=== PATIENT | male | born 1955 | race Caucasian/White ===

== ENCOUNTER 2016-06-14 17:39 | Emergency (ER) | payer MEDICARE, OTHER ==
[2016-06-14 20:13] VITALS: BP 147/75; PULSE 90; RESP 18; TEMP 99.7
--- NOTE | 2016-06-14 20:34 | XR ---
EXAMINATION TYPE: XR chest 2V DATE OF EXAM: 06/14/2016 8:19 PM COMPARISON: 02/25/2016 HISTORY: Cough and congestion TECHNIQUE: Frontal and lateral views of the chest are obtained. FINDINGS: Heart and mediastinum are normal. There is slight coarsening of interstitial markings. The re are no hilar masses. There is no pleural effusion. There is a mild thoracic kyphosis with slight a nterior wedging of lower thoracic vertebra. IMPRESSION: Mild pulmonary fibrotic changes. No acute lung disease. No change compared to old exam.
--- NOTE | 2016-06-14 20:39 | ED ---
General Adult HPI - General Chief complaint: Upper Respiratory Infection Stated complaint: Cough for a week Time Seen by Provider: 06/14/16 19:16 Source: patient, RN notes reviewed Mode of arrival: ambulatory Limitations: no limitations - History of Present Illness Initial comments: This is a 60-year-old male presents with cough and congestion 7 days. Patient states he is coughing up phlegm and has had a runny nose. Patient denies any fever/chills or shortness of breath. Patient admits to being a smoker of 2 packs a day. Patient states he has been around many people with similar symptoms. Patient denies any recent chest pain, abdominal pain, nausea/vomiting/ diarrhea, back pain, numbness, tingling, hematuria, headache, or visual changes , or any other complaints. - Related Data Home Medications Medication Instructions Recorded Confirmed Aspirin EC [Ecotrin] 325 mg PO DAILY 01/19/14 06/14/16 Cyclobenzaprine [Flexeril] 10 mg PO TID 01/19/14 06/14/16 Furosemide [Lasix] 20 mg PO BID 01/19/14 06/14/16 Isosorbide Mononitrate [Imdur] 60 mg PO DAILY 01/19/14 06/14/16 LORazepam [Ativan] 1 mg PO BID PRN 01/19/14 06/14/16 Sulindac 200 mg PO BID 01/19/14 06/14/16 Theophylline 24 Hour [Darnell-24] 300 mg PO DAILY 01/19/14 06/14/16 glyBURIDE,MICRONIZED [Glynase] 2 tab PO BID 01/19/14 06/14/16 sitaGLIPtin [Januvia] 100 mg PO DAILY 01/19/14 06/14/16 Previous Rx's Medication Instructions Recorded Atorvastatin [Lipitor] 80 mg PO HS #30 tab 01/21/14 Clopidogrel [Plavix] 75 mg PO DAILY #30 tab 01/21/14 Lisinopril [Zestril] 5 mg PO DAILY #30 tab 01/21/14 Metoprolol Tartrate [Lopressor] 25 mg PO BID #60 tab 01/21/14 Nitroglycerin Sl Tabs [Nitrostat] 0.4 mg SUBLINGUAL Q5M PRN #25 tab 01/21/14 metFORMIN HCL [Glucophage] 500 mg PO BID #0 01/21/14 Azithromycin [Zithromax Z-pack] 250 mg PO DIRECTED #6 tab 06/14/16 Allergies Allergy/AdvReac Type Severity Reaction Status Date / Time No Known Allergies Allergy Verified 06/14/16 18:25 Review of Systems ROS Statement: Those systems with pertinent positive or pertinent negative responses have been documented in the HPI. ROS Other: All systems not noted in ROS Statement are negative. Past Medical History Past Medical History: Coronary Artery Disease (CAD), Chest Pain / Angina, Diabetes Mellitus, Hypertension, Myocardial Infarction ([place]) Last Myocardial Infarction Date:: 01/19/2014 History of Any Multi-Drug Resistant Organisms: None Reported Past Surgical History: Cholecystectomy, Heart Catheterization With Stent, Joint Replacement, Orthopedic Surgery Additional Past Surgical History / Comment(s): 2 STENTS TO CIRCUMFLEX Past Anesthesia/Blood Transfusion Reactions: No Reported Reaction Date of Last Stent Placement:: 01/19/2014 Past Psychological History: No Psychological Hx Reported Smoking Status: Current every day smoker Past Alcohol Use History: Occasional Past Drug Use History: None Reported General Exam - General Exam Comments Initial Comments: General: The patient is awake and alert, in no distress, and does not appear acutely ill. Eye: Pupils are equal, round and reactive to light, extra-ocular movements are intact. No nystagmus. There is normal conjunctiva bilaterally. No signs of icterus. Ears: TMs pearly with intact cone of light bilaterally. Normal external ear canals. Nose: Nasal turbinates erythematous and edematous with drainage present bilaterally. Mouth and throat: There are moist mucous membranes and no oral lesions. Neck: The neck is supple, there is no tenderness or JVD. Cardiovascular: There is a regular rate and rhythm. No murmur, rub or gallop is appreciated. Respiratory: Lungs are clear to auscultation, but distant, respirations are non -labored, breath sounds are equal. No wheezes, stridor, rales, or rhonchi. Musculoskeletal: Normal ROM, no tenderness. Strength 5/5. Sensation intact. Radial pulses equal bilaterally 2+. Neurological: A&O x 3. CN II-XII intact, There are no obvious motor or sensory deficits. Coordination appears grossly intact. Speech is normal. Skin: Skin is warm and dry and no rashes or lesions are noted. Psychiatric: Cooperative, appropriate mood & affect, normal judgment. Limitations: no limitations Course Vital Signs 06/14/16 06/14/16 18:22 20:10 Temperature 99.5 F 99.7 F H Pulse Rate 89 90 Respiratory 20 18 Rate Blood Pressure 123/70 147/75 O2 Sat by Pulse 97 96 Oximetry Medical Decision Making - Medical Decision Making Is a 60-year-old male presents with cough and congestion 7 days. On physical exam lungs are clear to auscultation bilaterally. No acute respiratory distress. Patient is afebrile in the EC today. A chest x-ray is done and reviewed showing:Mild pulmonary fibrotic changes. No acute lung disease. No change compared to old exam. Report read by Dr. Quiroz. Discussed results with patient. Discussed the patient will be put on a course of azithromycin for upper respiratory infection. I discussed return parameters.Discussed that patient should follow up with PCP in one to 2 days or return to the EC for any worsening symptoms or for any further concerns. Patient was receptive to this plan and patient will be discharged home. Disposition Clinical Impression: Upper respiratory infection, Productive cough Disposition: HOME SELF-CARE Condition: Good Instructions: Upper Respiratory Infection (ED) Additional Instructions: Please finish entire course of antibiotics. Please use Tylenol or Motrin as seen for any pain or fever symptoms.Please use medication as discussed. Please follow-up with family doctor in the next 2 days of symptoms have not improved. Please return to emergency room if the symptoms increase or worsen or for any other concerns. Prescriptions: Azithromycin [Zithromax Z-pack] 250 mg PO DIRECTED #6 tab Time of Disposition: 21:11
== END 2016-06-14 21:10 | disposition home or self-care (01) ==
LOC: EC 17:39
DX: J06.9 Acute upper respiratory infection, unspecified (principal); I25.10 Atherosclerotic heart disease of native coronary artery without angina pectoris; E11.9 Type 2 diabetes mellitus without complications; I25.2 Old myocardial infarction; I10 Essential (primary) hypertension; F17.200 Nicotine dependence, unspecified, uncomplicated; Z95.5 Presence of coronary angioplasty implant and graft; Z79.84 Long term (current) use of oral hypoglycemic drugs; Z79.02 Long term (current) use of antithrombotics/antiplatelets; Z79.82 Long term (current) use of aspirin; Z79.899 Other long term (current) drug therapy
CPT/HCPCS: 71020; 99283

== ENCOUNTER 2016-08-17 09:50 | Day surgery (SDC) | payer MEDICARE, OTHER ==
[2016-08-15 10:32] VITALS: BMI 26.6
[~2016-08-17 09:50] MED LIST: LACTATED RINGERS 1,000 ML IV SCH; LIDOCAINE 1% 20 ML VIAL (10MG/ML) FOR IV START INTRADERMA PRN
[2016-08-17 10:30] VITALS: RESP 16; TEMP 97.6
[2016-08-17 10:43] LABS: Glucose,Whole Blood 212 mg/dL (75-99)
[2016-08-17] MEDS ORDERED: PROPOFOL 10 MG/ML 20 ML VIAL IV ONE (11:06)
[2016-08-17] MEDS ORDERED: LIDOCAINE 1% INJ 10MG/ML (20 ML MDV) ONE (11:06)
--- NOTE | 2016-08-17 11:22 | P.GSHP ---
History of Present Illness H&P Date: 08/17/16 Chief Complaint: Screening colonoscopy This a 60-year-old male referred from Dr. Lester. Patient presents today for screening colonoscopy. He has never had a colonoscopy before. He denies any significant GI complaints. - Constitutional Constitutional: Reports as per HPI Past Medical History Past Medical History: Coronary Artery Disease (CAD), Chest Pain / Angina, COPD, Diabetes Mellitus, Hypertension, Myocardial Infarction ([place]) Additional Past Medical History / Comment(s): GENITAL WARTS Last Myocardial Infarction Date:: 01/19/2014 History of Any Multi-Drug Resistant Organisms: None Reported Past Surgical History: Cholecystectomy, Heart Catheterization With Stent, Joint Replacement, Orthopedic Surgery Additional Past Surgical History / Comment(s): 2 STENTS TO CIRCUMFLEX Past Anesthesia/Blood Transfusion Reactions: No Reported Reaction Date of Last Stent Placement:: 01/19/2014 Past Psychological History: No Psychological Hx Reported Smoking Status: Current every day smoker Past Alcohol Use History: Occasional Additional Past Alcohol Use History / Comment(s): SMOKES 1-2 PPD-SINCE AGE 17 Past Drug Use History: None Reported - Past Family History Mother Family Medical History: No Reported History Medications and Allergies Home Medications Medication Instructions Recorded Confirmed Type Aspirin EC [Ecotrin] 325 mg PO DAILY 01/19/14 08/17/16 History Cyclobenzaprine [Flexeril] 10 mg PO TID 01/19/14 08/17/16 History Furosemide [Lasix] 20 mg PO BID 01/19/14 08/17/16 History Isosorbide Mononitrate [Imdur] 60 mg PO DAILY 01/19/14 08/17/16 History LORazepam [Ativan] 1 mg PO BID PRN 01/19/14 08/17/16 History Sulindac 200 mg PO BID 01/19/14 08/17/16 History Theophylline 24 Hour [Darnell-24] 300 mg PO DAILY 01/19/14 08/17/16 History glyBURIDE,MICRONIZED [Glynase] 2 tab PO BID 01/19/14 08/17/16 History sitaGLIPtin [Januvia] 100 mg PO DAILY 01/19/14 08/17/16 History Allergies Allergy/AdvReac Type Severity Reaction Status Date / Time No Known Allergies Allergy Verified 08/17/16 10:24 Surgical - Exam Vital Signs Temp Pulse Resp BP Pulse Ox 97.6 F 89 16 161/102 98 08/17/16 10:27 08/17/16 10:27 08/17/16 10:27 08/17/16 10:27 08/17/16 10:27 - General well developed, no distress - Eyes PERRL - ENT normal pinna - Neck no masses - Respiratory normal expansion - Cardiovascular Rhythm: regular - Abdomen Abdomen: soft, non tender Results - Labs Abnormal Lab Results - Last 24 Hours (Table) 08/17/16 Range/Units 10:32 POC Glucose (mg/dL) 212 H (75-99) mg/dL Assessment and Plan Plan: We'll perform screening colonoscopy
--- NOTE | 2016-08-17 11:33 | P.OP ---
Date of Procedure: 08/17/16 Preoperative Diagnosis: Screening colonoscopy Postoperative Diagnosis: Poor colon prep Procedure(s) Performed: Colonoscopy Anesthesia: MAC Surgeon: Ton Rushing Pathology: none sent Condition: stable Disposition: PACU Description of Procedure: Patient's placed on the endoscopy table in the lateral position. He received IV sedation. Digital rectal exam was performed which revealed a large amount rectal stool. The flexible colonoscope was then placed patient anus and passed with colon. Scope could not be passed beyond the transverse colon secondary to a large amount of stool in the rectum. The stool was quite firm. Patient had a very poor prep. This point the withdrawn and the transverse colon descending colon and sigmoid colon and rectum appeared normal however this was a very limited view due to the poor colonic prep. The scope was withdrawn for patient. The patient will be need to be prepped for colonoscopy
[2016-08-17 12:05] VITALS: BP 138/88; PULSE 80
== END 2016-08-17 12:22 | disposition home or self-care (01) ==
LOC: ORWHC2ENDO 09:50
PROVIDERS: ATTEND Surgery
DX: Z12.11 Encounter for screening for malignant neoplasm of colon (principal); I25.119 Atherosclerotic heart disease of native coronary artery with unspecified angina pectoris; Z95.5 Presence of coronary angioplasty implant and graft; J44.9 Chronic obstructive pulmonary disease, unspecified; E11.9 Type 2 diabetes mellitus without complications; I10 Essential (primary) hypertension; E78.5 Hyperlipidemia, unspecified; I25.2 Old myocardial infarction; F17.200 Nicotine dependence, unspecified, uncomplicated; Z79.84 Long term (current) use of oral hypoglycemic drugs; Z79.82 Long term (current) use of aspirin; Z79.899 Other long term (current) drug therapy; Z79.1 Long term (current) use of non-steroidal anti-inflammatories (NSAID); Z79.02 Long term (current) use of antithrombotics/antiplatelets
CPT/HCPCS: J2001; J2704; G0121; 45378

== ENCOUNTER → 2016-08-22 | Outpatient (CLI) | payer MEDICARE, OTHER ==
[2016-08-22 10:26] LABS: Blood Urea Nitrogen 8 mg/dL (9-20); Non-African American GFR(MDRD) >60 (>60 ml/min/1.73 sqM)
--- NOTE | 2016-08-22 11:16 | CT ---
EXAMINATION TYPE: CT chest w con DATE OF EXAM: 08/22/2016 10:55 AM COMPARISON: 12/25/2015 HISTORY: Patient poor historian. Patient displays a cough. CT DLP: 497 mGycm Automated exposure control for dose reduction was used. CONTRAST: CT scan of the chest is performed with IV Contrast, patient injected with 100 mL of Omnipaque 300. FINDINGS: LUNGS: There is a diffuse micronodular appearance noted of both lungs. Larger nodules are seen within the left upper lobe measuring up to 6.5 mm. Right upper lobe nodules also noted measuring up to 6.6 mm. Mild scattered subpleural fibrosis with scattered groundglass opacity noted. MEDIASTINUM: Thoracic aorta is of normal caliber. The heart is not enlarged. Coronary artery calcific ation noted. No evidence for mediastinal mass. Subcarinal adenopathy measures 1.5 cm. HILAR STRUCTURES: Right hilar adenopathy measures up to 2 cm. Left hilar adenopathy measures 1.3 cm. UPPER ABDOMEN: Small sliding-type hiatal hernia. Osseous structures: Hypertrophic and degenerative change of the spine are seen with chronic appearing mild anterior wedge deformities in the lower thoracic spine. Pectus deformity of the sternum noted. Other: Subcentimeter right thyroid nodule noted. IMPRESSION: 1. Nonspecific diffuse micronodular appearance of both lungs with more discrete nodules noted as disc ussed above. There is some mild subpleural fibrosis. There is also hilar and adenopathy. Correlate fo r possible inflammatory or infectious process. Sarcoidosis is also within the differential. Findings are stable from previous.
== END | disposition home or self-care (01) ==
LOC: RADCTMAIN 09:51
PROVIDERS: ATTEND Internal Medicine Critical Care Medicine
DX: R91.8 Other nonspecific abnormal finding of lung field (principal); R59.0 Localized enlarged lymph nodes
CPT/HCPCS: 82565; 84520; 71260; 36415; Q9967

== ENCOUNTER → 2019-08-01 | Day surgery (SDC) | payer MEDICARE, OTHER ==
[2019-07-31 12:26] VITALS: BMI 25.1
[~2019-08-01] MED LIST changes: +LIDOCAINE 1% (10MG/ML) FOR IV START INTRADERMA PRN; -LIDOCAINE 1% 20 ML VIAL (10MG/ML) FOR IV START INTRADERMA PRN; +LIDOCAINE 1% INJ 10MG/ML (20 ML MDV) ONE; +PROPOFOL 10 MG/ML 20 ML VIAL IV ONE
[2019-08-01 07:22] VITALS: TEMP 97.6
[2019-08-01 07:38] LABS: Glucose,Whole Blood 207 mg/dL (75-99)
--- NOTE | 2019-08-01 08:02 | P.GSHP ---
History of Present Illness H&P Date: 08/01/19 Chief Complaint: Family history colonic Cancer This 63-year-old male who has a family history of colon cancer. Patient's brother was recently diagnosed with colon cancer. Patient denies any significant GI complaints. He's never had a previous screening colonoscopy. Past Medical History Past Medical History: Coronary Artery Disease (CAD), Chest Pain / Angina, COPD, Diabetes Mellitus, Hyperlipidemia, Hypertension, Myocardial Infarction ([place]), Osteoarthritis ([place]) Additional Past Medical History / Comment(s): GENITAL WARTS Last Myocardial Infarction Date:: 01/19/2014 History of Any Multi-Drug Resistant Organisms: None Reported Past Surgical History: Cholecystectomy, Heart Catheterization With Stent, Joint Replacement, Orthopedic Surgery Additional Past Surgical History / Comment(s): 2 STENTS TO CIRCUMFLEX, TOTAL LEFT HIP , LUNG SURGERY, RIGHT KNEE SURGERY, RIGHT HAND-FINGERS Past Anesthesia/Blood Transfusion Reactions: No Reported Reaction Date of Last Stent Placement:: 01/19/2014 Smoking Status: Current every day smoker - Past Family History Mother Family Medical History: No Reported History Brother(s) Family Medical History: Cancer Additional Family Medical History / Comment(s): COLON CANCER Medications and Allergies Home Medications Medication Instructions Recorded Confirmed Type Aspirin EC [Ecotrin] 325 mg PO DAILY 01/19/14 08/01/19 History Furosemide [Lasix] 20 mg PO BID 01/19/14 08/01/19 History Sulindac 200 mg PO BID PRN 01/19/14 08/01/19 History Theophylline 24 Hour [Darnell-24] 300 mg PO DAILY 01/19/14 08/01/19 History glyBURIDE,MICRONIZED [Glynase] 6 mg PO AC-BRKFST 01/19/14 08/01/19 History sitaGLIPtin [Januvia] 100 mg PO DAILY 01/19/14 08/01/19 History Nitroglycerin Sl Tabs [Nitrostat] 0.4 mg SUBLINGUAL Q5M PRN #25 tab 01/21/14 08/01/19 Rx metFORMIN HCL [Glucophage] 500 mg PO BID #0 01/21/14 08/01/19 Rx Atenolol [Tenormin] 25 mg PO DAILY 07/31/19 08/01/19 History Allergies Allergy/AdvReac Type Severity Reaction Status Date / Time No Known Allergies Allergy Verified 08/01/19 07:23 Surgical - Exam Vital Signs Temp Pulse Resp BP Pulse Ox 97.6 F 99 20 152/72 99 08/01/19 07:21 08/01/19 07:21 08/01/19 07:21 08/01/19 07:21 08/01/19 07:21 - General well developed, well nourished, no distress - Eyes PERRL - ENT normal pinna - Neck no masses - Respiratory normal expansion - Cardiovascular Rhythm: regular - Abdomen Abdomen: soft, non tender Results - Labs Abnormal Lab Results - Last 24 Hours (Table) 08/01/19 Range/Units 07:32 POC Glucose (mg/dL) 207 H (75-99) mg/dL Assessment and Plan Assessment: History of family colonic cancer. We'll perform colonoscopy.
[2019-08-01 08:24] VITALS: RESP 16
--- NOTE | 2019-08-01 08:27 | P.OP ---
Date of Procedure: 08/01/19 Preoperative Diagnosis: Screening colonoscopy History of family colon cancer Postoperative Diagnosis: Diverticulosis Poor colonic prep Procedure(s) Performed: Colonoscopy Anesthesia: MAC Surgeon: Ton Rushing Pathology: none sent Condition: stable Disposition: PACU Description of Procedure: The patient's placed on the endoscopy table lateral position. He received IV sedation. Digital rectal exam was performed which revealed a few external hemorrhoids. Flexible colonoscope was then placed patient anus and passed throughout the colon. The patient's colonic prep was very poor. The large amount stool in the colon. The scope could not be advanced past the midportion of the right colon due to the large amount of stool. This was withdrawn. There is a large amount of stool which limited the view of the mucosa. There was diverticular changes noted in the transverse descending and sigmoid colon. There are no masses or polyps seen however the view was quite limited due to the large amount stool. Scope was brought back the rectum and this appeared normal. Scope withdrawn for patient.
[2019-08-01 08:32] LABS: Glucose,Whole Blood 190 mg/dL (75-99)
[2019-08-01 08:38] VITALS: BP 114/67; PULSE 61
== END ==
LOC: ORWHC2ENDO 07:07
PROVIDERS: ATTEND Surgery
DX: Z12.11 Encounter for screening for malignant neoplasm of colon (principal); K57.30 Diverticulosis of large intestine without perforation or abscess without bleeding; K64.4 Residual hemorrhoidal skin tags; Z80.0 Family history of malignant neoplasm of digestive organs; I25.2 Old myocardial infarction; I25.10 Atherosclerotic heart disease of native coronary artery without angina pectoris; I10 Essential (primary) hypertension; E78.5 Hyperlipidemia, unspecified; J44.9 Chronic obstructive pulmonary disease, unspecified; E11.9 Type 2 diabetes mellitus without complications; M19.90 Unspecified osteoarthritis, unspecified site; F17.200 Nicotine dependence, unspecified, uncomplicated; Z79.82 Long term (current) use of aspirin; Z79.84 Long term (current) use of oral hypoglycemic drugs; Z79.899 Other long term (current) drug therapy; Z90.49 Acquired absence of other specified parts of digestive tract; Z95.5 Presence of coronary angioplasty implant and graft; Z96.642 Presence of left artificial hip joint
CPT/HCPCS: G0105; J2001; J2704; 45330

== ENCOUNTER → 2019-12-31 | Outpatient (CLI) | payer MEDICARE, OTHER ==
[~2019-12-31] MED LIST changes: -LACTATED RINGERS 1,000 ML IV SCH; -LIDOCAINE 1% (10MG/ML) FOR IV START INTRADERMA PRN; -LIDOCAINE 1% INJ 10MG/ML (20 ML MDV) ONE; -PROPOFOL 10 MG/ML 20 ML VIAL IV ONE; +REGADENOSON 0.4 MG/5 ML SYRINGE IV ONE
--- NOTE | 2019-12-31 12:39 | NM ---
EXAMINATION TYPE: NM stress lexiscan cardiolite DATE OF EXAM: 12/31/2019 COMPARISON: NONE HISTORY: Precordial chest pain and abnormal EKG TECHNIQUE: After the intravenous administration of 9.8 mCi Tc 99m Sestamibi - Cardiolite resting SPE CT images acquired 45 minutes post injection. The patient received 0.4mg Lexiscan, 25 mCi Tc 99m Sestamibi - Stress images obtained 40 minutes post injection FINDINGS: Review of stress and rest SPECT images demonstrates there is decreased perfusion on the stress images involving the cardiac apex compatible with stress-induced ischemia. Gated analysis shows normal wall motion with an estimated left ventricular ejection fraction of 53 %. IMPRESSION: Stress-induced ischemia as noted.
--- NOTE | 2019-12-31 14:30 | EST ---
EXERCISE STRESS AGE: 64 SEX: M HT: 5'9" WT: 170 lbs. PROTOCOL: Lexiscan Cardiolite. STAGE: DURATION OF EXERCISE: HEART RATE REST: 66 BLOOD PRESSURE REST: 127/75 MAXIMUM HEART RATE ACHIEVED: 76 MAXIMUM BLOOD PRESSURE: 128/77 85% MPHR: 100% MPHR: METS: INDICATIONS: CLINICAL INFORMATION: Baseline EKG revealed normal sinus rhythm without significant ST-T changes. With Lexiscan imaging, heart rate changed from 66-72 beats per minute, blood pressure changed from 128/77 to 127/75. Patient was asymptomatic. EKG was unremarkable. By EKG criteria, this is an unremarkable Lexiscan stress test. The nuclear scan results which are more pertinent will be reported by the radiologist. MMODL / IJN: [id number] /
== END | disposition home or self-care (01) ==
LOC: RADNMMAIN 09:36
PROVIDERS: ATTEND Family Medicine
DX: I25.89 Other forms of chronic ischemic heart disease (principal)
CPT/HCPCS: 93017; 78452; A9500; J2785

== ENCOUNTER 2020-01-06 09:11 | Inpatient (IN) | payer MEDICARE, OTHER ==
[2020-01-06 12:07] LABS: Glucose,Whole Blood 158 mg/dL (75-99)
[2020-01-06 12:17] LABS: Basophils % (A) 0 %; Eosinophils # (A) 0.4 k/uL (0-0.7); Eosinophils % (A) 6 %; HCT 44.2 % (39.0-53.0); HGB 14.7 gm/dL (13.0-17.5); Lymphocytes # (A) 1.9 k/uL (1.0-4.8); Lymphocytes % (A) 26 %; MCH 29.2 pg (25.0-35.0); MCHC 33.3 g/dL (31.0-37.0); MCV 87.5 fL (80.0-100.0); Monocytes # (A) 0.5 k/uL (0-1.0); Monocytes % (A) 6 %; Neutrophils # (A) 4.3 k/uL (1.3-7.7); Neutrophils % (A) 59 %; Platelet Count 171 k/uL (150-450); RBC 5.06 m/uL (4.30-5.90); RDW 12.7 % (11.5-15.5); WBC 7.3 k/uL (3.8-10.6)
[2020-01-06 12:27] LABS: African American GFR (CKD) >90 (>60 ml/min/1.73 sqM); Anion Gap 6 mmol/L; Blood Urea Nitrogen 10 mg/dL (9-20); Calcium 9.2 mg/dL (8.4-10.2); Carbon Dioxide 28 mmol/L (22-30); Chloride 103 mmol/L (98-107); Cholesterol 174 mg/dL (<200); Glucose 161 mg/dL (74-99); HDL Cholesterol 49 mg/dL (40-60); LDL Cholesterol,Calculated 110 mg/dL (0-99); Magnesium 1.9 mg/dL (1.6-2.3); Non-African American GFR(CKD) >90 (>60 ml/min/1.73 sqM); Potassium 4.3 mmol/L (3.5-5.1); Sodium 137 mmol/L (137-145); Triglycerides 75 mg/dL (<150)
[2020-01-06] MEDS ORDERED: NITROGLYCERIN SL TABS 0.4 MG TAB SUBLINGUAL PRN (12:35)
[2020-01-06] MEDS ORDERED: ALPRAZolam 0.25 MG TAB PO PRN (12:35)
[2020-01-06] MEDS ORDERED: SODIUM CHLORIDE 0.9% 1,000 ML in EMPTY BAG 1 BAG IV ONE (12:35)
[2020-01-06] MEDS ORDERED: ALPRAZolam 0.5 MG TAB PO PRN (12:35)
[2020-01-06] MEDS ORDERED: HEPARIN SODIUM,PORCINE 5,000 UNIT/ML 1 ML VIAL IV ONE (12:44)
[2020-01-06] MEDS ORDERED: HEPARIN SOD,PORK IN 0.45% NACL 25,000 UNIT in 0.45% NACL 1 250ML.BAG IV SCH (12:45)
[2020-01-06] MEDS: ASPIRIN 81 MG PO SCH (12:58)
[2020-01-06] MEDS: METOPROLOL SUCCINATE (ER) 50 MG TAB.ER.24H PO SCH (12:58)
[2020-01-06] MEDS: ATORVASTATIN 80 MG TAB PO SCH (12:58)
[2020-01-06] MEDS: FUROSEMIDE 20 MG TAB PO SCH ×2 (12:58→21:59)
[2020-01-06] MEDS ORDERED: HYDROcodone/APAP 10-325MG 1 EACH TAB PO PRN (13:07)
--- NOTE | 2020-01-06 13:13 | P.CRDCN ---
History of Present Illness History of present illness: HISTORY OF PRESENTING ILLNESS This is a pleasant 64-year-old male past medical history significant for coronary artery disease status post PCI of the proximal and midcircumflex with chronic total occlusion of the RCA and first diagonal branch as well as moderate disease in the proximal LAD with calcified right and left coronary systems, hypertension, dyslipidemia, diabetes mellitus and chronic nicotine dependence. 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 His prior re vascularization was in 2013. That was done by Dr. Dr. Fortune. We have been asked to see in consultation for chest pain and abnormal stress test performed as an outpatient. He states for the previous 2 months he has been experiencing exertional chest discomfort and taking sublingual nitroglycerin regularly. His chest discomfort is described as a tight sensation in the midsternal region with radiation to the left precordial region associated with shortness of breath. He denies dizziness, palpitations, nausea, vomiting, diaphoresis or syncope. Laboratory data reviewed, CBC unremarkable, sodium 137, potassium 4.3, creatinine 0.66, cardiac enzymes negative 1, LDL 110 and HDL 49. Current daily cardiac medications include Toprol 50 mg daily, atenolol 25 mg daily, aspirin 81 mg daily, Lasix 20 mg twice a day and atorvastatin 80 mg daily. REVIEW OF SYSTEMS At the time of my exam: CONSTITUTIONAL: Denies fever or chills. CARDIOVASCULAR: Denies chest pain, shortness of breath, orthopnea, PND or palpitations. RESPIRATORY: Denies cough. GASTROINTESTINAL: Denies abdominal pain, diarrhea, constipation, nausea or vomiting. MUSCULOSKELETAL: Denies myalgias. NEUROLOGIC: Denies numbness, tingling or weakness. ENDOCRINE: Denies fatigue, weight change, polydipsia or polyurina. GENITOURINARY: Denies burning, hematuria or urgency with micturation. HEMATOLOGIC: Denies history of anemia or bleeding. PHYSICAL EXAMINATION Blood pressure 149/81 heart rate 69 afebrile and maintaining oxygen saturation on room air. CONSTITUTIONAL: No apparent distress. HEENT: Head is normocephalic. Pupils are equal, round. Sclerae anicteric. Mucous membranes of the mouth are moist. No JVD. Bilateral carotid bruit. CHEST EXAMINATION: Lungs are clear to auscultation. No chest wall tenderness is noted on palpation or with deep breathing. HEART EXAMINATION: Regular rate and rhythm. S1, S2 heard. Systolic ejection murmur at the left sternal border and apex, no gallops or rub. ABDOMEN: Soft, nontender. Positive bowel sounds. EXTREMITIES: 2+ peripheral pulses, no lower extremity edema and no calf tend erness. NEUROLOGIC EXAMINATION: Patient is awake, alert and oriented x3. ASSESSMENT Unstable angina Coronary artery disease status post prior revascularization Hypertension Dyslipidemia COPD Diabetes mellitus Chronic nicotine dependence PLAN Obtain baseline EKG. Obtain 2-D echocardiogram and Doppler study to assess cardiac structure and function. Chest x-ray is pending. Initiate heparin infusion. Recommend proceeding with left heart catheterization tomorrow with Dr. Fortune. I have discussed the risks, benefits and alternative therapies for the above- mentioned procedure and for both sedation/analgesia as well as necessary blood product administration, if indicated, as they pertain to this patient. The patient has indicated understanding and acceptance of the risks and procedures discussed. Questions have been answered appropriately and he is agreeable to move forward with the above-stated procedure. His medication regimen appears to be atenolol and Toprol. We will discontinue the atenolol and continue the Toprol 50 mg daily. Continue Lasix, atorvastatin and aspirin as previously ordered. Smoking cessation recommended. Further recommendations to follow based upon clinical course. Thank you kindly for this consultation. Nurse Practitioner note has been reviewed, I agree with a documented findings and plan of care. Patient was seen and examined. Past Medical History Past Medical History: Coronary Artery Disease (CAD), Chest Pain / Angina, COPD, Diabetes Mellitus, Hyperlipidemia, Hypertension, Myocardial Infarction ([place]), Osteoarthritis (OA) Additional Past Medical History / Comment(s): GENITAL WARTS Last Myocardial Infarction Date:: 01/19/2014 History of Any Multi-Drug Resistant Organisms: None Reported Past Surgical History: Cholecystectomy, Heart Catheterization With Stent, Joint Replacement, Orthopedic Surgery Additional Past Surgical History / Comment(s): 2 STENTS TO CIRCUMFLEX, TOTAL LEFT HIP , LUNG SURGERY, RIGHT KNEE SURGERY, RIGHT HAND-FINGERS Past Anesthesia/Blood Transfusion Reactions: No Reported Reaction Date of Last Stent Placement:: 01/19/2014 Past Psychological History: No Psychological Hx Reported Smoking Status: Current every day smoker Past Alcohol Use History: Rare Additional Past Alcohol Use History / Comment(s): STARTED AT AGE 17 SMOKES 1-2 PPD Past Drug Use History: None Reported - Past Family History Mother Family Medical History: No Reported History Brother(s) Family Medical History: Cancer Additional Family Medical History / Comment(s): COLON CANCER Medications and Allergies Home Medications Medication Instructions Recorded Confirmed Type Furosemide [Lasix] 20 mg PO BID 01/19/14 01/06/20 History Theophylline 24 Hour [Darnell-24] 300 mg PO BID 01/19/14 01/06/20 History glyBURIDE,MICRONIZED [Glynase] 6 mg PO BID 01/19/14 01/06/20 History sitaGLIPtin [Januvia] 100 mg PO DAILY 01/19/14 01/06/20 History Nitroglycerin Sl Tabs [Nitrostat] 0.4 mg SUBLINGUAL Q5M PRN #25 tab 01/21/14 01/06/20 Rx atenoloL [Tenormin] 25 mg PO DAILY 07/31/19 01/06/20 History Aspirin EC [Ecotrin Low Dose] 81 mg PO DAILY 01/06/20 01/06/20 History Atorvastatin Calcium [Lipitor] 80 mg PO DAILY 01/06/20 01/06/20 History Famotidine [Pepcid] 20 mg PO DAILY 01/06/20 01/06/20 History HYDROcodone/APAP 10-325MG [[place] 1 tab PO TID 01/06/20 01/06/20 History 10-325] LORazepam [Ativan] 1 mg PO BID 01/06/20 01/06/20 History Metoprolol Succinate [Toprol XL] 50 mg PO DAILY 01/06/20 01/06/20 History metFORMIN HCL [Glucophage] 1,000 mg PO BID 01/06/20 01/06/20 History Allergies Allergy/AdvReac Type Severity Reaction Status Date / Time No Known Allergies Allergy Verified 01/06/20 10:26 Physical Exam Vitals: Vital Signs Temp Pulse Resp BP BP Pulse Ox 01/06/20 11:30 97.6 F 69 20 149/81 99 01/06/20 10:12 98.1 F 16 158/78 Intake and Output 01/05/20 01/06/20 01/06/20 22:59 06:59 14:59 Other: Weight 72.5 kg Results 01/06/20 11:58 01/06/20 11:58 Lipids 01/06/20 Range/Units 11:58 Triglycerides 75 (<150) mg/dL Cholesterol 174 (<200) mg/dL HDL Cholesterol 49 (40-60) mg/dL CBC 01/06/20 Range/Units 11:58 WBC 7.3 (3.8-10.6) k/uL RBC 5.06 (4.30-5.90) m/uL Hgb 14.7 (13.0-17.5) gm/dL Hct 44.2 (39.0-53.0) % Plt Count 171 (150-450) k/uL Comprehensive Metabolic Panel 01/06/20 Range/Units 11:58 Sodium 137 (137-145) mmol/L Potassium 4.3 (3.5-5.1) mmol/L Chloride 103 (98-107) mmol/L Carbon Dioxide 28 (22-30) mmol/L BUN 10 (9-20) mg/dL Creatinine 0.66 (0.66-1.25) mg/dL Glucose 161 H (74-99) mg/dL Calcium 9.2 (8.4-10.2) mg/dL Current Medications Generic Name Dose Route Start Last Admin Trade Name Freq PRN Reason Stop Dose Admin Alprazolam 0.25 mg 01/06/20 12:35 Xanax PO Q6HR PRN Mild Anxiety Alprazolam 0.5 mg 01/06/20 12:35 Xanax PO Q6HR PRN Moderate Anxiety Aspirin 325 mg 01/07/20 06:00 Aspirin PO 01/07/20 06:01 ONCE ONE Atorvastatin Calcium 80 mg 01/06/20 12:45 Lipitor PO DAILY CLARITA Furosemide 20 mg 01/06/20 12:45 Lasix PO BID CLARITA Sodium Chloride 1,000 ml/ IV 1,000 mls @ 72.5 mls/hr 01/06/20 12:35 Solution IV 01/07/20 02:22 .[id number] ONE 1 ML/KG/HR Methylprednisolone Sodium Succinate 40 mg 01/06/20 16:00 Solu-Medrol IV Q8HR CLARITA Metoprolol Succinate 50 mg 01/06/20 12:45 Toprol Xl PO DAILY CLARITA Nitroglycerin 0.4 mg 01/06/20 12:35 Nitrostat SUBLINGUAL Q5M PRN Chest Pain Non-Formulary Medication 81 mg 01/06/20 12:45 Aspirin Ec PO DAILY CLARITA Intake and Output 01/05/20 01/06/20 01/06/20 22:59 06:59 14:59 Other: Weight 72.5 kg Patient Weight 01/07/20 06:59 Weight 72.5 kg 01/06/20 11:58 01/06/20 11:58
[2020-01-06 13:45] LABS: ALT 7 U/L (4-49); AST 17 U/L (17-59); Albumin 4.2 g/dL (3.5-5.0); Alkaline Phosphatase 77 U/L (38-126); Total Bilirubin 0.6 mg/dL (0.2-1.3)
--- NOTE | 2020-01-06 13:56 | HP ---
HISTORY AND PHYSICAL A 64-year-old white male who had an abnormal stress test last week that showed ischemia in the apex, was admitted for unstable angina. He takes 5 nitroglycerin pills a day. He has a history of COPD and he has a history of 6 stents in the past over 5 years ago. No stress test since then. He has long-standing history of smoking, COPD, and maybe he has some noncompliance for followup issues. He mentioned he gets chest pain with any exertion around the yard, taking nitroglycerin 5 pulse a day. He continues smoke. His breathing has gotten worse, short of breath is worse over the last few days. We are going to be him in for COPD exacerbation, unstable angina with a heart catheterization due to abnormal stress test. Generally on methyl, Solu-Medrol 40 mg IV q.8, metoprolol 50 daily, nitroglycerin sublingual, Lipitor 80 daily, aspirin 325 daily, alprazolam 0.5 p.r.n. for anxiety. 14 POINT REVIEW OF SYSTEMS: As mentioned above. PHYSICAL EXAM: Temperature 97, 98, blood pressure is 140s to 150s/70s to 80s, O2 is 99% on room air. Cardiovascular S1, S2. Lungs scattered wheeze x4, generally looks dark complected, ashen-nicole face. Cardiovascular S1-S2, Lungs scattered wheeze, GI soft, nontender. Hematology negative Homans. Psych fair mood and affect. Neurologic, anxious. ASSESSMENT: Unstable angina. Abnormal stress test. COPD, nicotine addiction, dyslipidemia, hypertension. Please see further orders. Needs a heart catheterization. Start him on IV Solu- Medrol. Check chest x-ray, troponins, etc. MMODL / IJN: [id number] /
--- NOTE | 2020-01-06 14:18 | XR ---
EXAMINATION TYPE: XR chest 2V DATE OF EXAM: 01/06/2020 COMPARISON: CT chest August 22, 2016. Two-view chest x-ray June 14, 2016. HISTORY: COPD. TECHNIQUE: Frontal and lateral views of the chest are obtained. FINDINGS: Slightly elevated left hemidiaphragm redemonstrated. Increasing reticular markings bilatera lly are present. There is no new suspicious focal air space opacity, pleural effusion, or pneumothora x seen. The cardiac silhouette size is stable and within normal limits with atherosclerotic change i n the aortic knob. The osseous structures are somewhat demineralized. Mild chronic type compression fracture deformities redemonstrated mid to lower thoracic spine. IMPRESSION: Chronic interstitial changes. Cannot exclude new mild bilateral central interstitial terrence ma. No new focal infiltrate.
[2020-01-06] MEDS ORDERED: HYDROcodone/APAP 10-325MG 1 EACH TAB PO SCH (16:00)
[2020-01-06 16:33] LABS: Glucose,Whole Blood 203 mg/dL (75-99)
[2020-01-06] MEDS: INSULIN ASPART (NovoLOG) 100 UNIT/ML VIAL SQ SCH ×2 (16:54→21:59)
[2020-01-06] MEDS: methylPREDNISolone SOD SUCCI 40 MG/ML 1 ML VIAL IV SCH ×2 (16:54→23:16)
--- NOTE | 2020-01-06 18:00 | ECHOF ---
Referral Reason: MEASUREMENTS -------- HEIGHT: 175.3 cm WEIGHT: 72.1 kg BP: 158/78 RVIDd: 3.9 cm (< 3.3) IVSd: 1.8 cm (0.6 - 1.1) LVIDd: 3.9 cm (3.9 - 5.3) LVPWd: 1.6 cm (0.6 - 1.1) IVSs: 2.2 cm LVIDs: 2.2 cm LVPWs: 2.2 cm LAESV Index (A-L): 52.80 ml/m Ao Diam: 3.6 cm (2.0 - 3.7) AV Cusp: 1.1 cm (1.5 - 2.6) MV E Simón: 1.75 m/s MV DecT: 399 ms MV A Simón: 1.52 m/s MV E/A Ratio: 1.15 AV maxP.20 mmHg AV meanP.93 mmHg RAP: 5.00 mmHg RVSP: 26.84 mmHg FINDINGS -------- Sinus rhythm. This was a technically adequate study. The left ventricular size is normal. There is moderate concentric left ventricular hypertrophy. O verall left ventricular systolic function is normal with, an EF between 55 - 60 %. Left ventricular fillimg pressure cannot be estimated due to severe mitral annular calcification. The right ventricle is mild to moderately enlarged. LA is severely dilated >40 ml/m2 The right atrial size is normal. Interatrial and interventricular septum intact. There is no evidence of aortic regurgitation. There is mild aortic stenosis present. Peak/mean gr adient across the Aortic Valve is 32.20mmHg / 16.93mmHg. Severe mitral annular calcification present. Mild mitral regurgitation is present. Moderate milagros l stenosis , with a MVA of 1.9cm (by PHT) Mild tricuspid regurgitation present. There is no evidence of pulmonary hypertension. The right v entricular systolic pressure, as measured by Doppler, is 26.84mmHg. There is no pulmonic regurgitation present. The aortic root size is normal. Normal inferior vena cava with normal inspiratory collapse consistent with estimated right atrial pre ssure of 5 mmHg. There is no pericardial effusion. CONCLUSIONS -------- 1. The left ventricular size is normal. 2. There is moderate concentric left ventricular hypertrophy. 3. Overall left ventricular systolic function is normal with, an EF between 55 - 60 %. 4. Left ventricular fillimg pressure cannot be estimated due to severe mitral annular calcification. 5. The right ventricle is mild to moderately enlarged. 6. LA is severely dilated >40 ml/m2 7. There is mild aortic stenosis present. 8. Peak/mean gradient across the Aortic Valve is 32.20mmHg / 16.93mmHg. 9. Severe mitral annular calcification present. 10. Moderate mitral stenosis. 11. , with a MVA of 1.9cm (by PHT) 12. Mild tricuspid regurgitation present. TON CYLINDER INSPECTOR: Noa Banegas RDCS
[2020-01-06] MEDS: HEPARIN SODIUM,PORCINE 5,000 UNIT/ML 1 ML VIAL IV PRN (19:08)
[2020-01-06 21:01] LABS: Hemoglobin A1C 6.2 % (4.0-6.0)
[2020-01-06 21:02] LABS: Glucose,Whole Blood 216 mg/dL (75-99)
[2020-01-07] MEDS: HEPARIN SODIUM,PORCINE 5,000 UNIT/ML 1 ML VIAL IV PRN (01:54)
[2020-01-07 05:58] LABS: Glucose,Whole Blood 219 mg/dL (75-99)
[2020-01-07] MEDS: FAMOTIDINE 20 MG TAB PO SCH (06:00)
[2020-01-07] MEDS ORDERED: ASPIRIN 325 MG TAB PO ONE (06:00)
[2020-01-07] MEDS: METOPROLOL SUCCINATE (ER) 50 MG TAB.ER.24H PO SCH (06:01)
[2020-01-07] MEDS: ATORVASTATIN 80 MG TAB PO SCH (06:01)
[2020-01-07] MEDS: methylPREDNISolone SOD SUCCI 40 MG/ML 1 ML VIAL IV SCH ×3 (06:04→23:34)
[2020-01-07] MEDS: INSULIN ASPART (NovoLOG) 100 UNIT/ML VIAL SQ SCH ×4 (06:05→20:21)
[2020-01-07 06:33] LABS: Basophils % (A) 0 %; Eosinophils % (A) 0 %; HCT 45.3 % (39.0-53.0); HGB 15.2 gm/dL (13.0-17.5); Lymphocytes # (A) 1.1 k/uL (1.0-4.8); Lymphocytes % (A) 12 %; MCH 29.6 pg (25.0-35.0); MCHC 33.5 g/dL (31.0-37.0); MCV 88.4 fL (80.0-100.0); Mean Platelet Volume 8.4; Monocytes # (A) 0.2 k/uL (0-1.0); Monocytes % (A) 2 %; Neutrophils # (A) 7.9 k/uL (1.3-7.7); Neutrophils % (A) 85 %; Platelet Count 177 k/uL (150-450); RBC 5.13 m/uL (4.30-5.90); RDW 12.7 % (11.5-15.5); WBC 9.3 k/uL (3.8-10.6)
[2020-01-07] MEDS ORDERED: LIDOCAINE 1% INJ 10MG/ML (20 ML MDV) ONE (12:12)
[2020-01-07] MEDS ORDERED: VERAPAMIL 2.5 MG/ML 2 ML AMP ONE (12:12)
[2020-01-07] MEDS ORDERED: fentaNYL (PF) 50 MCG/ML 2 ML AMP ONE (12:13)
[2020-01-07] MEDS ORDERED: fentaNYL (PF) 50 MCG/ML 2 ML AMP IVP ONE (12:15)
[2020-01-07] MEDS ORDERED: LIDOCAINE 1% INJ 10MG/ML (20 ML MDV) SQ ONE (12:17)
[2020-01-07] MEDS ORDERED: VERAPAMIL SYRINGE (5 MG/10 ML) INTRAARTER ONE (12:20)
[2020-01-07] MEDS ORDERED: IV FLUID CONTINUATION 1,000 ML IV ONE (12:21)
[2020-01-07] MEDS ORDERED: HEPARIN SODIUM 1,000 UN/ML (10ML VL) ONE (12:28)
[2020-01-07] MEDS ORDERED: HEPARIN SODIUM 1,000 UN/ML (10ML VL) IV ONE (12:29)
[2020-01-07] MEDS ORDERED: IOPAMIDOL-370 100ML BTL INJ ONE (12:37)
[2020-01-07] MEDS ORDERED: IOPAMIDOL-300 50ML BTL INJ ONE (12:37)
[2020-01-07] MEDS ORDERED: RX INFO: IV CONTRAST WAS GIVEN 1 EACH MISC MISCELLANE PRN (12:54)
[2020-01-07] MEDS ORDERED: SODIUM CHLORIDE 0.9% 1,000 ML IV SCH (13:00)
[2020-01-07] MEDS: ASPIRIN 81 MG PO SCH (15:56)
[2020-01-07] MEDS ORDERED: MD COMMUNICATION TO PHARMACY 1 EACH MISC PO ONE (16:08)
[2020-01-07] MEDS: ISOSORBIDE MONONITRATE ER 30 MG TAB.ER.24H PO SCH (16:09)
[2020-01-07] MEDS: EZETIMIBE 10 MG TAB PO SCH (16:09)
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
[2020-01-07 17:23] LABS: Glucose,Whole Blood 372 mg/dL (75-99)
--- NOTE | 2020-01-07 18:40 | CC ---
CARDIAC CATHETERIZATION REPORT Mr. Liu is a 64-year-old male with known history of chronic tobacco use, history of hypertension, hyperlipidemia, diabetes mellitus and history of coronary artery disease who presented with symptoms of exertional chest discomfort and positive myocardial perfusion imaging. He was evaluated by Dr. Pandey. Recommendation was made regarding cardiac catheterization. The procedure, its risks and complications were discussed with the patient, who was in full understanding and agreement. PROCEDURE DESCRIPTION: Patient was brought to record label internship in a fasting, semi-sedated state after receiving fentanyl and Benadryl and achieving a moderate conscious sedated state. Using Xylocaine anesthesia and Seldinger technique, a 6-Indonesian sheath was introduced in the right radial artery. Selective right and left coronary angiography was performed using 5-Indonesian 3-1/2 bend right and left Katherine catheters. Multiple views were taken of the coronary arteries, including hemiaxial views. Following that, a 5-Indonesian tight pigtail catheter was introduced in the left ventricle and a 30-degree TOLEDO view of the left ventricle was obtained. Following that, catheter and sheath were removed. Hemostasis was obtained with deployment of a TR band. There was no immediate complication. Patient was returned to his room in stable condition. Of note, the patient received a total of 4000 units of intravenous heparin as well as intra-arterial verapamil. FINDINGS: FLUOROSCOPY: There was severe calcification involving all the coronary arteries. LEFT MAIN: This is a large-sized vessel trifurcating into left circumflex, ramus intermedius and left anterior descending coronary artery. Left main coronary artery has no evidence of high-grade stenosis. LEFT ANTERIOR DESCENDING ARTERY: This is a large-sized vessel reaching toward the apex with a wrap around the apex segment, heavily calcified. The left anterior descending artery at the takeoff of the first diagonal branch has a 99% stenosis. There is a proximal diagonal branch that is totally occluded. The second diagonal branch has diffuse intimal disease with an area of stenosis up to 80%. The distal LAD artery has an 80% to 90% stenosis. RAMUS INTERMEDIUS: This is a large-sized vessel reaching toward the apicolateral wall. The ramus intermedius has a 90% stenosis in the mid segment. The stented segments in the left circumflex are patent. The first obtuse marginal branch is totally occluded with no significant antegrade flow. Distally the vessel has no evidence of high- grade stenosis. RIGHT CORONARY ARTERY: This vessel is totally occluded proximally with no significant antegrade flow. COLLATERALS: There is collateral from the left coronary system toward the right PDA and PLV. LEFT VENTRICULOGRAM: Left ventriculogram was performed in 30-degree TOLEDO view and revealed normal left ventricular size and systolic function. There was mitral anulus calcification and 1+ mitral regurgitation. HEMODYNAMICS: There was no gradient across the aortic valve. The left ventricular end- diastolic pressure was 12-16 mmHg. CONCLUSION: 1. Heavily calcified coronary arteries. 2. Severe triple-vessel coronary artery disease with chronically occluded right coronary artery and occluded first diagonal branch. 3. Severe disease in the proximal LAD and ramus intermedius with occluded obtuse marginal branch. 4. Preserved left ventricular size and systolic function. RECOMMENDATIONS: In view of findings and anatomy and the history of diabetes, I have recommended that he undergo evaluation for coronary artery bypass grafting. Otherwise, he will require multivessel coronary angioplasty and stenting. Those findings and recommendation were discussed with the patient, and he is in full understanding and agreement. Duration of procedure was 25 minutes. KAT / SHERYLN: [id number] / NILE
--- NOTE | 2020-01-07 20:13 | US ---
EXAMINATION TYPE: US carotid duplex BILAT DATE OF EXAM: 01/07/2020 COMPARISON: NONE CLINICAL HISTORY: Pre-Op Cardiac Surgery. pre open heart, no h/o stroke, smoker EXAM MEASUREMENTS: RIGHT: Peak Systolic Velocity (PSV) cm/sec ----- Right CCA: 138 ----- Right ICA: 143 ----- Right ECA: 165 ICA/CCA ratio: 1.0 RIGHT: End Diastole cm/sec ----- Right CCA: 24.5 ----- Right ICA: 18.1 ----- Right ECA: 8.5 LEFT: Peak Systolic Velocity (PSV) cm/sec ----- Left CCA: 134 ----- Left ICA: 122 ----- Left ECA: 152 ICA/CCA ratio: 0.9 LEFT: End Diastole cm/sec ----- Left CCA: 29.2 ----- Left ICA: 25.5 ----- Left ECA: 19.8 VERTEBRALS (direction of flow): Right Vertebral: Antegrade Left Vertebral: Antegrade Rhythm: Normal Heterogeneous plaque bilaterally with no significant stenosis seen IMPRESSION: There is antegrade flow in the vertebral arteries. The images and measurements suggest less than 20% stenosis in the right internal carotid artery and 40% stenosis in the left internal carotid artery. Criteria for Assigning % of Stenosis / Diameter reduction (Estimation based on the indirect measurements of the internal carotid artery velocities (ICA PSV). 1. Normal (no stenosis)=ICA PSV < 125 cm/s: ratio < 2.0: ICA EDV<40 cm/s. 2. Less than 50% stenosis=ICA PSV < 125 cm/s: ratio < 2.0: ICA EDV<40 cm/s. 3. 50 to 69% stenosis=ICA PSV of 125 to 230 cm/s: ration 2.0 ? 4.0: ICA EDV 40-100 cm/s. 4. Greater than 70% stenosis to near occlusion= ICA PSV > 230 cm/s: ratio > 4.0: ICA EDV > 100 cm/s. 5. Near occlusion= ICA PSV velocities may be low or undetectable: variable ratio and ICA EDV. 6. Total occlusion=unable to detect flow.
[2020-01-07 20:16] LABS: Glucose,Whole Blood 206 mg/dL (75-99)
[2020-01-07] MEDS: lisinopriL 5 MG TAB PO SCH (20:21)
--- NOTE | 2020-01-07 22:30 | PN ---
PROGRESS NOTE This patient is a 64-year-old white male who came in with unstable angina. He was sent to the cardiac label designer today. Findings were severe calcification involving all coronary arteries. Left anterior descending, first diagonal branch 99% stenosis, proximal diagonal branch totally occluded, second diagonal branch 80%, right coronary artery totally occluded with some collaterals. Severe triple-vessel coronary artery disease, chronically occluded right coronary artery and occluded first diagonal branch, severe disease in proximal LAD and ramus. ASSESSMENT: Coronary artery bypass grafting surgery will be needed. Wait for cardiac surgeon's recommendations for surgery. Maximum medical therapy will be given in the meantime. Carotid only shows blockages 40% to 60% as far as carotid artery blockages. Wait for surgical intervention. MMODL / IJN: [id number] /
[2020-01-07 22:50] LABS: Appearance,Urine Clear (Clear); Bilirubin,Urine Negative (Negative); Blood,Urine Negative (Negative); Color,Urine Yellow; Glucose,Urine (UA) 2+ (Negative); Ketones,Urine Negative (Negative); Leukocyte Esterase,Urine Negative (Negative); Nitrite,Urine Negative (Negative); PH, Urine 5.5 (5.0-8.0); Protein,Urine Negative (Negative); Specific Gravity,Urine 1.023 (1.001-1.035)
[2020-01-08 05:22] LABS: Basophils % (A) 0 %; Eosinophils % (A) 0 %; HCT 40.6 % (39.0-53.0); HGB 13.3 gm/dL (13.0-17.5); Lymphocytes % (A) 9 %; MCH 29.3 pg (25.0-35.0); MCHC 32.8 g/dL (31.0-37.0); MCV 89.6 fL (80.0-100.0); Mean Platelet Volume 9.1; Monocytes # (A) 0.4 k/uL (0-1.0); Monocytes % (A) 3 %; Neutrophils # (A) 9.7 k/uL (1.3-7.7); Neutrophils % (A) 87 %; Platelet Count 173 k/uL (150-450); RBC 4.53 m/uL (4.30-5.90); RDW 12.6 % (11.5-15.5); WBC 11.2 k/uL (3.8-10.6)
[2020-01-08 05:29] LABS: Partial Thromboplastin Time 22.5 sec (22.0-30.0); Prothrombin Time 10.6 sec (9.0-12.0)
[2020-01-08 05:36] LABS: ALT 10 U/L (4-49); AST 15 U/L (17-59); African American GFR (CKD) >90 (>60 ml/min/1.73 sqM); Albumin 3.8 g/dL (3.5-5.0); Alkaline Phosphatase 63 U/L (38-126); Anion Gap 8 mmol/L; Blood Urea Nitrogen 16 mg/dL (9-20); Calcium 9.2 mg/dL (8.4-10.2); Carbon Dioxide 26 mmol/L (22-30); Chloride 105 mmol/L (98-107); Glucose 234 mg/dL (74-99); Non-African American GFR(CKD) >90 (>60 ml/min/1.73 sqM); Potassium 4.6 mmol/L (3.5-5.1); Sodium 139 mmol/L (137-145); Total Bilirubin 0.5 mg/dL (0.2-1.3); Total Protein 6.4 g/dL (6.3-8.2)
[2020-01-08 06:29] LABS: Glucose,Whole Blood 264 mg/dL (75-99)
[2020-01-08] MEDS: INSULIN ASPART (NovoLOG) 100 UNIT/ML VIAL SQ SCH ×4 (06:53→21:10)
[2020-01-08] MEDS: ASPIRIN 81 MG PO SCH (08:19)
[2020-01-08] MEDS: ATORVASTATIN 80 MG TAB PO SCH (08:19)
[2020-01-08] MEDS: FUROSEMIDE 20 MG TAB PO SCH (08:19)
[2020-01-08] MEDS: FAMOTIDINE 20 MG TAB PO SCH (08:19)
[2020-01-08] MEDS: EZETIMIBE 10 MG TAB PO SCH (08:20)
[2020-01-08] MEDS: ISOSORBIDE MONONITRATE ER 30 MG TAB.ER.24H PO SCH (08:20)
[2020-01-08] MEDS: METOPROLOL SUCCINATE (ER) 50 MG TAB.ER.24H PO SCH (08:24)
[2020-01-08] MEDS: methylPREDNISolone SOD SUCCI 40 MG/ML 1 ML VIAL IV SCH (08:25)
[2020-01-08] MEDS: lisinopriL 5 MG TAB PO SCH ×2 (08:29→21:10)
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
[2020-01-08 11:42] LABS: Glucose,Whole Blood 180 mg/dL (75-99)
[2020-01-08] MEDS ORDERED: fentaNYL (PF) 50 MCG/ML 2 ML AMP ONE (11:55)
[2020-01-08] MEDS: BENZOCAINE SPRAY 1 CAN TOPICAL ONE ×2 (12:35→12:43)
[2020-01-08] MEDS ORDERED: IV FLUID CONTINUATION 250 ML IV ONE (12:36)
[2020-01-08] MEDS ORDERED: MIDAZOLAM 2 MG/2 ML VIAL IV ONE ×2 (12:55→12:57)
[2020-01-08] MEDS ORDERED: fentaNYL (PF) 50 MCG/ML 2 ML AMP IV ONE (12:55)
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
[2020-01-08 13:45] LABS: Glucose,Whole Blood 196 mg/dL (75-99)
[2020-01-08 14:51] LABS: Hepatitis A Antibody IgM Non-Reactive (Non-Reactive); Hepatitis B Core IgM Non-Reactive (Non-Reactive); Hepatitis B Surface Antigen Non-Reactive (Non-Reactive); Hepatitis C IgG Antibody Non-Reactive (Non-Reactive)
--- NOTE | 2020-01-08 15:54 | ECHOT ---
TRANSESOPHAGEAL ECHOCARDIOGRAM INDICATION: Evaluation of mitral valve. PROCEDURE: After explaining the procedure to the patient, its risks and the complications, his blood pressure, heart rate, O2 saturation was monitored. The throat was sprayed with Cetacaine. He received 3 mg intravenous Versed, 100 mcg intravenous fentanyl. The probe was introduced into the esophagus without difficulties. Images were obtained. Following that, the probe was removed. There was no immediate complication. FINDINGS: Left atrial size is mildly dilated. Left atrial appendage is normal. Left ventricular size and systolic function normal. The aortic valve is a tricuspid valve with mild calcification in the aortic valve area by planimetry of 1.6 cm2. Severe mitral anulus calcification was noted. The tricuspid valve is normal. Pulmonic valve is normal, descending thoracic aorta revealed mild atherosclerotic changes of the descending aorta. No pericardial effusion was noted, contrast bubble study revealed no evidence of shunting across the interatrial septum with Valsalva maneuver. Doppler pulse wave and color Doppler obtained, revealed mild to moderate mitral with mild tricuspid and trace aortic regurgitation. There was no shunting by color Doppler study. CONCLUSION: 1. Mildly dilated left atrium with normal left ventricular size and systolic function. 2. Mild aortic stenosis with trace aortic regurgitation. 3. Severe mitral anulus calcification with mild to moderate mitral regurgitation. 4. Mild tricuspid regurgitation. 5. No shunting across the interatrial septum. 6. Mild atherosclerotic changes of the descending thoracic aorta. MMODL / IJN: [id number] /
[2020-01-08 16:35] LABS: Glucose,Whole Blood 327 mg/dL (75-99)
[2020-01-08 21:04] LABS: Glucose,Whole Blood 204 mg/dL (75-99)
[2020-01-08] MEDS: SODIUM CHLORIDE 0.9% 1,000 ML IV SCH (22:34)
--- NOTE | 2020-01-08 23:12 | PN ---
PROGRESS NOTE 64 -year-old white male who has waiting for bypass surgery and possible bivalvular repair as well as getting CABG surgery along with a four way bypass. Do not think the patient should be sent home at all prior to surgery as he has severely obstructed arteries. He is taking over 5 nitros per day. Had a TYRON today. The patient has severe mitral calcification and mildly dilated left atrium. Normal left ventricular size, systolic function, severe mitral calcification, [id number] mitral regurg. He will be cleared for bypass for next week. Keep him in the hospital over the weekend due to severe unstable angina and high risk of if he goes home. MMODL / IJN: [id number] /
[2020-01-09 06:36] LABS: Glucose,Whole Blood 146 mg/dL (75-99)
[2020-01-09] MEDS: INSULIN ASPART (NovoLOG) 100 UNIT/ML VIAL SQ SCH ×4 (06:43→20:02)
[2020-01-09] MEDS: ASPIRIN 81 MG PO SCH (07:45)
[2020-01-09] MEDS: METOPROLOL SUCCINATE (ER) 50 MG TAB.ER.24H PO SCH (07:45)
[2020-01-09] MEDS: ISOSORBIDE MONONITRATE ER 30 MG TAB.ER.24H PO SCH (07:45)
[2020-01-09] MEDS: ATORVASTATIN 80 MG TAB PO SCH (07:46)
[2020-01-09] MEDS: FAMOTIDINE 20 MG TAB PO SCH (07:46)
[2020-01-09] MEDS: lisinopriL 5 MG TAB PO SCH ×2 (07:46→20:02)
[2020-01-09] MEDS: EZETIMIBE 10 MG TAB PO SCH (07:46)
[2020-01-09] MEDS: FUROSEMIDE 20 MG TAB PO SCH (07:46)
--- NOTE | 2020-01-09 10:14 | P.PN ---
Subjective HISTORY OF PRESENTING ILLNESS This is a pleasant 64-year-old male past medical history significant for coronary artery disease status post PCI of the proximal and midcircumflex with chronic total occlusion of the RCA and first diagonal branch as well as moderate disease in the proximal LAD with calcified right and left coronary systems, hypertension, dyslipidemia, diabetes mellitus and chronic nicotine dependence. 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 He underwent catheterization with Dr. Fortune as well as TYRON. Catheterization revealed heavily calcified coronary arteries, severe triple vessel CAD with chronic total occlusion of the RCA and first diagonal branch, severe disease in the proximal LAD and ramus intermedius with an occluded OM and preserved LV systolic function. The LV gram revealed mitral annulus calcification and 1+ MR. TYRON reveals mildly dilated left atrium with normal LV systolic function, mild aortic stenosis with valve area of 1.6 cm with trace regurgitation, severe mitral annulus calcification with mild to moderate MR, mild TR and no shunting across the intra-atrial septum. Blood pressure 130/73 heart rate 66 afebrile maintaining oxygen saturation on room air. Currently undergoing evaluation by CT surgery for bypass grafting and possible mitral valve repair. Currently maintained on aspirin 81 mg daily, atorvastatin 80 mg daily, Zetia 10 mg daily, Lasix 20 mg daily, Imdur 30 mg daily, lisinopril 5 mg twice a day and Toprol 50 mg daily. He denies exertional chest pain. No shortness of breath, dizziness or palpitations. PHYSICAL EXAMINATION CONSTITUTIONAL: No apparent distress. HEENT: Head is normocephalic. Pupils are equal, round. Sclerae anicteric. Mucous membranes of the mouth are moist. No JVD. Bilateral carotid bruit. CHEST EXAMINATION: Lungs are clear to auscultation. No chest wall tenderness is noted on palpation or with deep breathing. HEART EXAMINATION: Regular rate and rhythm. S1, S2 heard. Systolic ejection murmur at the left sternal border and apex, no gallops or rub. EXTREMITIES: 2+ peripheral pulses, no lower extremity edema and no calf tenderness. ASSESSMENT Unstable angina Coronary artery disease status post prior revascularization Hypertension Dyslipidemia COPD Diabetes mellitus Chronic nicotine dependence PLAN We will repeat a limited TTE today to attempt a cleared picture of the mitral valve gradients. Clarified with the patient and the pharmacy, he DOES NOT take plavix and has not for many years. Continue current medication regimen as ordered. Nurse Practitioner note has been reviewed, I agree with a documented findings and plan of care. Patient was seen and examined. Objective - Vital Signs Vital signs: Vital Signs Temp 97.6 F 01/09/20 07:44 Pulse 66 01/09/20 08:23 Resp 16 01/09/20 08:23 BP 130/73 01/09/20 07:44 Pulse Ox 97 01/09/20 07:44 Intake & Output 01/08/20 01/09/20 01/09/20 18:59 06:59 18:59 Intake Total 1040 400 240 Output Total 300 Balance 1040 100 240 Intake: IV 100 Oral 940 400 240 Output: Urine 300 Other: Voiding Method Toilet Toilet Toilet # Voids 2 1 1 - Labs CBC & Chem 7: 01/08/20 05:01 01/08/20 05:01 Labs: Abnormal Lab Results - Last 24 Hours (Table) 01/08/20 01/08/20 01/08/20 Range/Units 11:39 13:43 16:30 POC Glucose (mg/dL) 180 H 196 H 327 H (75-99) mg/dL 01/08/20 01/09/20 Range/Units 21:03 06:34 POC Glucose (mg/dL) 204 H 146 H (75-99) mg/dL Microbiology - Last 24 Hours (Table) 01/07/20 22:42 Nasal Screen MRSA/MSSA - Preliminary Nasal Swab
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
[2020-01-09 11:27] LABS: Glucose,Whole Blood 180 mg/dL (75-99)
--- NOTE | 2020-01-09 12:59 | P.PN ---
Subjective Progress Note Date: 01/09/20 Principal diagnosis: Chest pain, shortness of breath This is a 64-year-old white male patient that used to see Dr. Lester and recently switched to Dr. Sammy Flores for primary care service, has been experiencing shortness of breath and chest pain on an outpatient basis. Patient has a known history of coronary artery disease, with previous PCI and stenting of the proximal and mid circumflex, previous history of myocardial infarction, hypertension, hyperlipidemia, type 2 diabetes mellitus, chronic and ongoing smoking history, patient carries 30 years of smoking of one to 2 packs a day. Patient has a history of COPD not oxygen dependent, patient just takes a rescue inhaler. There is a family history of premature coronary artery disease in his brother. Patient had outpatient stress test which was abnormal, and patient came into the hospital for an elective heart catheterization on 01/06/[address] Fortune which revealed a heavily calcified triple-vessel coronary artery disease with proximal LAD stenosis of 99%, mid LAD stenosis and 90%, circumflex stenosis of 100%, RCA stenosis of 100%. Echocardiogram revealed left atrial systolic function with EF of 55-60%, enlarged right ventricle, severely dilated left atrium mild aortic stenosis with peak/mean gradient of 32.2,/16.93, severe mitral annular calcification with moderate to severe mitral regurgitation and moderate mitral stenosis with mitral valve area of 1.97 m and mild tricuspid regurgitation with no pulmonary hypertension. Patient was referred to cardiothoracic surgery for myocardial revascularization and possibility of mitral valve surgery. His surgery is scheduled for one week from today because patient has been on Plavix. Will remains bedside spirometry evaluated. Admission chest x-ray showed chronic interstitial changes, the possibility of new mild bilateral central interstitial edema. Patient was seen by Dr. Correa in the office a few years back in 2016. In his previous CT scans of the chest from 2016 showed evidence of emphysema, limited groundglass changes likely related to his history of smoking, with the possibility of limited fibrosis in the lung bases. There were small 6.6 mm nodule in the right upper lobe in another 6.5 mm nodule in the left upper lobe along with some nonspecific hilar node enlargement. These nodules were nonspecific, however they were not spiculated nor calcified. Sarcoidosis felt to be less likely. Unfortunately patient never did follow-up in the office since 2016. His FEV1 was 88% of predicted consistent with mild COPD. At the time of her evaluation patient is resting comfortably in bed, he is in no acute distress, denies any shortness of breath or chest pain, breathing seems to be comfortable. Patient is scheduled for TYRON this afternoon On 01/09/2020 patient seen in follow-up on [facility] [place] observation unit, his bedside PFT showed FEV1 of 72% of predicted, clinically he has remained stable, he is on room air, his pulse ox is 97-99%, hemodynamically stable, will come by to worsening shortness of breath or chest pain, afebrile, respirations are nonlabored, breathing is comfortable. No new complaints overnight, his transe sophageal echocardiogram showing mildly dilated left atrium with normal left surgical her size and systolic function, mild aortic stenosis with trace aortic regurgitation, severe mitral annulus calcification with [id number] mitral regurgitation, mild tricuspid regurg, no shunting across the anterior atrial septum, and mild atherosclerotic changes of the descending thoracic aorta. Apparently it was found that patient had not taken any Plavix recently, and had not taken it for many years, that reason his surgery has been moved up to Monday and patient will stay inpatient waiting for his procedure. Objective - Vital Signs Vital signs: Vital Signs Temp 97.6 F 01/09/20 07:44 Pulse 66 01/09/20 08:23 Resp 16 01/09/20 08:23 BP 130/73 01/09/20 07:44 Pulse Ox 97 01/09/20 07:44 Intake & Output 01/08/20 01/09/20 01/09/20 18:59 06:59 18:59 Intake Total 1040 400 240 Output Total 300 Balance 1040 100 240 Intake: IV 100 Oral 940 400 240 Output: Urine 300 Other: Voiding Method Toilet Toilet Toilet # Voids 2 1 1 - Exam GENERAL EXAM: Alert, very pleasant, 64-year-old white male room air, with a pulse ox of 99%, comfortable in no apparent distress. HEAD: Normocephalic/atraumatic. EYES: Normal reaction of pupils, equal size. Conjunctiva pink, sclera white. NOSE: Clear with pink turbinates. THROAT: No erythema or exudates. NECK: No masses, no JVD, no thyroid enlargement, no adenopathy. CHEST: No chest wall deformity. Symmetrical expansion. LUNGS: Equal air entry with some basilar crackles, but no wheeze, rhonchi or dullness. CVS: Regular rate and rhythm, normal S1 and S2, no gallops, no murmurs, no rubs ABDOMEN: Soft, nontender. No hepatosplenomegaly, normal bowel sounds, no guarding or rigidity. EXTREMITIES: No clubbing, no edema, no cyanosis, 2+ pulses and upper and lower extremities. MUSCULOSKELETAL: Muscle strength and tone normal. SPINE: No scoliosis or deformity SKIN: No rashes CENTRAL NERVOUS SYSTEM: Alert and oriented -3. No focal deficits, tone is normal in all 4 extremities. PSYCHIATRIC: Alert and oriented -3. Appropriate affect. Intact judgment and insight. - Labs CBC & Chem 7: 01/08/20 05:01 01/08/20 05:01 Labs: Abnormal Lab Results - Last 24 Hours (Table) 01/08/20 01/08/20 01/08/20 Range/Units 13:43 16:30 21:03 POC Glucose (mg/dL) 196 H 327 H 204 H (75-99) mg/dL 01/09/20 01/09/20 Range/Units 06:34 11:25 POC Glucose (mg/dL) 146 H 180 H (75-99) mg/dL Microbiology - Last 24 Hours (Table) 01/07/20 22:42 Nasal Screen MRSA/MSSA - Final Nasal Swab Assessment and Plan Plan: Assessment: #1. Severe triple-vessel coronary artery disease, heart catheterization was performed on 01/06/2020 and showed calcified triple-vessel CAD with proximal LAD of 99%, mid LAD of 90%, circumflex of 100%, and RCA of 100%, awaiting myocardial revascularization surgery possibly next week #2. Severe mitral annular calcification with moderate severe mitral regurgitation and moderate mitral stenosis, patient is undergoing transesophageal echocardiogram, there is a possibility of surgical intervention. In addition to his mild aortic stenosis, and mild tricuspid regurgitation with no evidence of pulmonary hypertension and preserved EF of 55-60%, status post transesophageal echocardiogram on 01/09/2020 showing severe mitral annulus calcification with [id number] mitral regurgitation, mild TR, mild aortic stenosis with trace regurgitation, no shunting across the anterior atrial septum, and mild atherosclerotic changes of the descending thoracic aorta #3. Hypertension #4. Hyperlipidemia #5. Type 2 diabetes #6. History of COPD and emphysema #7. Chronic groundglass changes on his previous CT chest with limited amount of fibrosis at the lung bases and the PFT dated on 02/25/2016 showing FEV1 of 2.81 L or 80% of predicted, with FVC of 3.5 L or 76% of predicted, an FEV1 to FVC ratio of 106% predicted, consistent with mild restriction and minimal diffusion defect #8. History of pulmonary nodules, noted on previous CT chest from June [address] chest from December 2015 showing small 6.6 mm nodule in the right upper lobe and another 6.5 mm nodule in the left upper lobe along with nonspecific hilar node enlargement, and patient was supposed to have follow-up CT surveillance #9. Chronic and ongoing nicotine dependence, carries 30 years of smoking one to 2 packs a day #10. History of coronary artery disease with previous stenting #11. Hypertension #12. Scoliosis of thoracic spine #13. Family history of premature coronary artery disease Plan: Continue oral diuretics, no worsening dyspnea, patient is on room air, his bedside spirometry results have been noted, and his FEV1 is 72% of predicted, his COPD seems to be stable, no increased cough or congestion, complicated worsening shortness of breath, breathing is comfortable, vital signs stable overnight, patient's surgery has been moved up to Monday, we'll continue to follow along with CT surgery and cardiology. I performed a history & physical examination of the patient and discussed their management with my nurse practitioner, Pallavi Segura. I reviewed the nurse practitioner's note and agree with the documented findings and plan of care. Lung sounds are positive for mild crackles at the bases The findings and the impression was discussed with the patient. I attest to the documentation by the nurse practitioner. Time with Patient: Less than 30
[2020-01-09] MEDS: SODIUM CHLORIDE 0.9% 1,000 ML IV SCH (13:56)
[2020-01-09 16:36] LABS: Glucose,Whole Blood 201 mg/dL (75-99)
[2020-01-09 19:51] LABS: Glucose,Whole Blood 234 mg/dL (75-99)
--- NOTE | 2020-01-09 20:00 | ECHOF ---
Referral Reason:mv and av mean and peak gradients MEASUREMENTS -------- HEIGHT: 175.3 cm WEIGHT: 72.1 kg BP: 130/73 LA Diam: 3.3 cm (2.7 - 3.8) RVIDd: 3.4 cm (< 3.3) LAESV Index (A-L): 29.70 ml/m Ao Diam: 3.5 cm (2.0 - 3.7) AV maxP.03 mmHg AV meanP.06 mmHg FINDINGS -------- Sinus rhythm. Limited Study Overall left ventricular systolic function is normal with, an EF between 55 - 60 %. LA is midly dilated 29-33ml/m2. There is mild aortic valve sclerosis. There is mild aortic stenosis present. Peak/mean gradient ac ross the Aortic Valve is 22.03mmHg / 12.06mmHg. The mitral valve leaflets are moderately thickened. Moderate mitral annular calcification present. Mild mitral regurgitation is present. The peak and mean MV gradients are 19.85mmHg 3.42mmHg as m easured by doppler. Mild mitral stenosis. Maximum pressure gradient on MV is 21 mm/Hg and mean pr esure gradient is 4 mm/Hg There is no pericardial effusion. CONCLUSIONS -------- 1. Limited Study 2. Overall left ventricular systolic function is normal with, an EF between 55 - 60 %. 3. LA is midly dilated 29-33ml/m2. 4. There is mild aortic valve sclerosis. 5. Peak/mean gradient across the Aortic Valve is 22.03mmHg / 12.06mmHg. 6. The mitral valve leaflets are moderately thickened. 7. Moderate mitral annular calcification present. 8. Mild mitral regurgitation is present. 9. The peak and mean MV gradients are 19.85mmHg 3.42mmHg as measured by doppler. 10. Mild mitral stenosis. 11. Maximum pressure gradient on MV is 21 mm/Hg and mean presure gradient is 4 mm/Hg 12. There is no pericardial effusion. PODODERMATOLOGIST: Latrice Cowan [facility]
--- NOTE | 2020-01-09 23:20 | PN ---
PROGRESS NOTE This patient is a 64-year-old white male. He remains on aspirin, Lipitor, Zetia, Pepcid, Lasix, NovoLog, Imdur, Zestril, Toprol-XL. He is going to have a 4-5 way bypass on Monday. Cardiovascular: S1-S2. Lungs: Scattered wheeze. Hematology: Negative Homans. Psych: Fair mood and affect. ASSESSMENT: 1. Unstable angina. 2. Severe coronary artery disease. Bypass on Monday due to severe angina with any ambulation. He will be kept over the weekend. Surgery is planned for Monday. MMODL / IJN: [id number] /
[2020-01-10 06:13] LABS: Glucose,Whole Blood 200 mg/dL (75-99)
[2020-01-10] MEDS: INSULIN ASPART (NovoLOG) 100 UNIT/ML VIAL SQ SCH ×4 (06:24→20:57)
[2020-01-10] MEDS: EZETIMIBE 10 MG TAB PO SCH (07:57)
[2020-01-10] MEDS: lisinopriL 5 MG TAB PO SCH ×2 (07:57→20:57)
[2020-01-10] MEDS: ATORVASTATIN 80 MG TAB PO SCH (07:57)
[2020-01-10] MEDS: METOPROLOL SUCCINATE (ER) 50 MG TAB.ER.24H PO SCH (07:58)
[2020-01-10] MEDS: ASPIRIN 81 MG PO SCH (07:58)
[2020-01-10] MEDS: FUROSEMIDE 20 MG TAB PO SCH (07:58)
[2020-01-10] MEDS: ISOSORBIDE MONONITRATE ER 30 MG TAB.ER.24H PO SCH (07:58)
[2020-01-10] MEDS: FAMOTIDINE 20 MG TAB PO SCH (07:58)
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
[2020-01-10 11:52] LABS: Glucose,Whole Blood 220 mg/dL (75-99)
--- NOTE | 2020-01-10 12:17 | P.PN ---
Subjective HISTORY OF PRESENTING ILLNESS This is a pleasant 64-year-old male past medical history significant for coronary artery disease status post PCI of the proximal and midcircumflex with chronic total occlusion of the RCA and first diagonal branch as well as moderate disease in the proximal LAD with calcified right and left coronary systems, hypertension, dyslipidemia, diabetes mellitus and chronic nicotine dependence. 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 He underwent catheterization with Dr. Fortune as well as TYRON. Catheterization revealed heavily calcified coronary arteries, severe triple vessel CAD with chronic total occlusion of the RCA and first diagonal branch, severe disease in the proximal LAD and ramus intermedius with an occluded OM and preserved LV systolic function. The LV gram revealed mitral annulus calcification and 1+ MR. TYRON reveals mildly dilated left atrium with normal LV systolic function, mild aortic stenosis with valve area of 1.6 cm with trace regurgitation, severe mitral annulus calcification with mild to moderate MR, mild TR and no shunting across the intra-atrial septum. Blood pressure 130/73 heart rate 66 afebrile maintaining oxygen saturation on room air. Currently undergoing evaluation by CT surgery for bypass grafting and possible mitral valve repair. Currently maintained on aspirin 81 mg daily, atorvastatin 80 mg daily, Zetia 10 mg daily, Lasix 20 mg daily, Imdur 30 mg daily, lisinopril 5 mg twice a day and Toprol 50 mg daily. He denies exertional chest pain. No shortness of breath, dizziness or palpitations. 01/10/2020 He is seen and examined sitting up in bed in no acute distress. HEENT denies any symptoms of exertional chest discomfort. Breathing is stable. He has no dizziness or palpitations. Blood pressure 161/101 with a heart rate of 60 maintaining oxygen saturations on room air. PHYSICAL EXAMINATION CONSTITUTIONAL: No apparent distress. HEENT: Head is normocephalic. Pupils are equal, round. Sclerae anicteric. Mucous membranes of the mouth are moist. No JVD. Bilateral carotid bruit. CHEST EXAMINATION: Lungs are clear to auscultation. No chest wall tenderness is noted on palpation or with deep breathing. HEART EXAMINATION: Regular rate and rhythm. S1, S2 heard. Systolic ejection murmur at the left sternal border and apex, no gallops or rub. EXTREMITIES: 2+ peripheral pulses, no lower extremity edema and no calf tenderness. ASSESSMENT Unstable angina Coronary artery disease status post prior revascularization Valvular heart disease Hypertension Dyslipidemia COPD Diabetes mellitus Chronic nicotine dependence PLAN Repeat blood pressure after morning medication administration. Continue current medication regimen as ordered. Bypass surgery scheduled for Monday. Nurse Practitioner note has been reviewed, I agree with a documented findings and plan of care. Patient was seen and examined. Objective - Vital Signs Vital signs: Vital Signs Temp 97.6 F 01/10/20 07:56 Pulse 60 01/10/20 08:56 Resp 14 01/10/20 08:56 BP 161/101 01/10/20 07:56 Pulse Ox 96 01/10/20 07:56 Intake & Output 01/09/20 01/10/20 01/10/20 18:59 06:59 18:59 Intake Total 380 200 240 Balance 380 200 240 Intake: Oral 380 200 240 Other: Voiding Method Toilet Toilet Toilet # Voids 3 1 - Labs CBC & Chem 7: 01/08/20 05:01 01/08/20 05:01 Labs: Abnormal Lab Results - Last 24 Hours (Table) 01/09/20 01/09/20 01/10/20 Range/Units 16:35 19:50 06:11 POC Glucose (mg/dL) 201 H 234 H 200 H (75-99) mg/dL 01/10/20 Range/Units 11:50 POC Glucose (mg/dL) 220 H (75-99) mg/dL Microbiology - Last 24 Hours (Table) 01/07/20 22:42 Nasal Screen MRSA/MSSA - Final Nasal Swab
[2020-01-10] MEDS: SODIUM CHLORIDE 0.9% 1,000 ML IV SCH (16:09)
[2020-01-10 16:27] LABS: Glucose,Whole Blood 162 mg/dL (75-99)
--- NOTE | 2020-01-10 18:51 | PN ---
PROGRESS NOTE This patient is a 64-year-old white male with COPD exacerbation, coronary artery disease of significant nature, mitral and aortic valve disease. He is planned for bypass surgery on Monday. Due to unstable angina, he is unable to go home this weekend. Will prep him for surgery on Monday. CARDIOVASCULAR: S1, S2. LUNGS: Clear. GI: Soft. PSYCH: Fair mood and affect. ASSESSMENT: 1. Unstable angina. 2. Coronary artery disease, status post prior revascularization. 3. Valvular heart disease. 4. Hypertension. 5. Dyslipidemia. 6. Chronic obstructive pulmonary disease. 7. Diabetes mellitus. 8. Chronic nicotine addiction. Monitor blood pressures. Bypass surgery scheduled for Monday. Risk factor modification to continue. MMODL / IJN: [id number] /
[2020-01-10 20:54] LABS: Glucose,Whole Blood 230 mg/dL (75-99)
[2020-01-11 06:13] LABS: Glucose,Whole Blood 177 mg/dL (75-99)
[2020-01-11] MEDS: INSULIN ASPART (NovoLOG) 100 UNIT/ML VIAL SQ SCH ×4 (06:17→21:15)
[2020-01-11] MEDS: ISOSORBIDE MONONITRATE ER 30 MG TAB.ER.24H PO SCH (08:14)
[2020-01-11] MEDS: ATORVASTATIN 80 MG TAB PO SCH (08:14)
[2020-01-11] MEDS: ASPIRIN 81 MG PO SCH (08:14)
[2020-01-11] MEDS: EZETIMIBE 10 MG TAB PO SCH (08:14)
[2020-01-11] MEDS: FUROSEMIDE 20 MG TAB PO SCH (08:14)
[2020-01-11] MEDS: FAMOTIDINE 20 MG TAB PO SCH (08:14)
[2020-01-11] MEDS: METOPROLOL SUCCINATE (ER) 50 MG TAB.ER.24H PO SCH (08:15)
--- NOTE | 2020-01-11 09:55 | P.PN ---
Subjective Progress Note Date: 01/11/20 Principal diagnosis: Severe coronary artery disease This is a pleasant 64-year-old gentleman who presented to the hospital with a chest discomfort. He underwent a heart catheterization and was found to have severe triple-vessel coronary artery disease was extremely calcified right and left coronary systems. Also he was diagnosed with valvular heart disease was mild aortic stenosis and moderate mitral insufficiency. He was seen by the cardiothoracic surgeon and the plan is to pursue with coronary artery bypass grafting this coming Monday. The patient was seen today. He is asymptomatic from a cardiovascular standpoint of view. He is hemodynamically stable. He has been maintaining normal sinus mechanism. He is on aspirin as well as high intensity statin as well as metoprolol and also oral nitrates. Objective - Vital Signs Vital signs: Vital Signs Temp 97.5 F L 01/11/20 08:07 Pulse 60 01/11/20 08:07 Resp 20 01/11/20 08:38 BP 120/68 01/11/20 08:07 Pulse Ox 99 01/11/20 08:07 Intake & Output 01/10/20 01/11/20 01/11/20 18:59 06:59 18:59 Intake Total 720 200 Balance 720 200 Intake: Oral 720 200 Other: Voiding Method Toilet Toilet Toilet # Voids 4 2 1 - Constitutional General appearance: Present: no acute distress - Respiratory Respiratory: bilateral: CTA - Cardiovascular Rhythm: regular Heart sounds: normal: S1, S2 Abnormal Heart Sounds: Present: systolic murmur - Labs CBC & Chem 7: 01/08/20 05:01 01/08/20 05:01 Labs: Abnormal Lab Results - Last 24 Hours (Table) 01/10/20 01/10/20 01/10/20 Range/Units 11:50 16:25 20:52 POC Glucose (mg/dL) 220 H 162 H 230 H (75-99) mg/dL 01/11/20 Range/Units 06:11 POC Glucose (mg/dL) 177 H (75-99) mg/dL Assessment and Plan Assessment: Assessment #1 severe triple-vessel coronary artery disease #2 mild aortic stenosis #3 mitral regurgitation in the moderate range #4 hypertension #5 dyslipidemia Plan #1 continue the current medical regimen #2 follow-up with the patient
[2020-01-11 11:33] LABS: Glucose,Whole Blood 282 mg/dL (75-99)
[2020-01-11] MEDS ORDERED: MD COMMUNICATION TO PHARMACY 1 EACH MISC PO ONE (12:33)
--- NOTE | 2020-01-11 13:27 | P.PN ---
Subjective Progress Note Date: 01/11/20 Principal diagnosis: Severe triple-vessel coronary artery disease This is a 64-year-old white male patient that used to see Dr. Lester and recently switched to Dr. Sammy Flores for primary care service, has been experiencing shortness of breath and chest pain on an outpatient basis. Patient has a known history of coronary artery disease, with previous PCI and stenting of the proximal and mid circumflex, previous history of myocardial infarction, hypertension, hyperlipidemia, type 2 diabetes mellitus, chronic and ongoing smoking history, patient carries 30 years of smoking of one to 2 packs a day. Patient has a history of COPD not oxygen dependent, patient just takes a rescue inhaler. There is a family history of premature coronary artery disease in his brother. Patient had outpatient stress test which was abnormal, and patient came into the hospital for an elective heart catheterization on 01/06/[address] Fortune which revealed a heavily calcified triple-vessel coronary artery disease with proximal LAD stenosis of 99%, mid LAD stenosis and 90%, circumflex stenosis of 100%, RCA stenosis of 100%. Echocardiogram revealed left atrial systolic function with EF of 55-60%, enlarged right ventricle, severely dilated left atrium mild aortic stenosis with peak/mean gradient of 32.2,/16.93, severe mitral annular calcification with moderate to severe mitral regurgitation and moderate mitral stenosis with mitral valve area of 1.97 m and mild tricuspid regurgitation with no pulmonary hypertension. Patient was referred to cardiothoracic surgery for myocardial revascularization and possibility of mitral valve surgery. His surgery is scheduled for one week from today because patient has been on Plavix. Will remains bedside spirometry evaluated. Admissi on chest x-ray showed chronic interstitial changes, the possibility of new mild bilateral central interstitial edema. Patient was seen by Dr. Correa in the office a few years back in 2016. In his previous CT scans of the chest from 2016 showed evidence of emphysema, limited groundglass changes likely related to his history of smoking, with the possibility of limited fibrosis in the lung bases. There were small 6.6 mm nodule in the right upper lobe in another 6.5 mm nodule in the left upper lobe along with some nonspecific hilar node enlargement. These nodules were nonspecific, however they were not spiculated nor calcified. Sarcoidosis felt to be less likely. Unfortunately patient never did follow-up in the office since 2016. His FEV1 was 88% of predicted consistent with mild COPD. At the time of her evaluation patient is resting comfortably in bed, he is in no acute distress, denies any shortness of breath or chest pain, breathing seems to be comfortable. Patient is scheduled for TYRON this afternoon On 01/09/2020 patient seen in follow-up on [facility] observation unit, his bedside PFT showed FEV1 of 72% of predicted, clinically he has remained stable, he is on room air, his pulse ox is 97-99%, hemodynamically stable, will come by to worsening shortness of breath or chest pain, afebrile, respirations are nonlabored, breathing is comfortable. No new complaints overnight, his transesophageal echocardiogram showing mildly dilated left atrium with normal left surgical her size and systolic function, mild aortic stenosis with trace aortic regurgitation, severe mitral annulus calcification with [id number] mitral regurgitation, mild tricuspid regurg, no shunting across the anterior atrial septum, and mild atherosclerotic changes of the descending thoracic aorta. Apparently it was found that patient had not taken any Plavix recently, and had not taken it for many years, that reason his surgery has been moved up to Monday and patient will stay inpatient waiting for his procedure. The patient is seen today 01/11/2020 in follow-up on the observation unit. He is currently sitting up in bed. Having lunch. No chest pain, cough or congestion. No palpitations dizziness or lightheadedness. He is maintaining good O2 saturations in the high 90s on room air. He's afebrile. Hemodynamically stable. Plan is for coronary artery revascularization surgery on Monday. Objective - Vital Signs Vital signs: Vital Signs Temp 97.5 F L 01/11/20 08:07 Pulse 60 01/11/20 08:07 Resp 20 01/11/20 08:38 BP 120/68 01/11/20 08:07 Pulse Ox 99 01/11/20 08:07 Intake & Output 01/10/20 01/11/20 01/11/20 18:59 06:59 18:59 Intake Total 720 200 Balance 720 200 Intake: Oral 720 200 Other: Voiding Method Toilet Toilet Toilet # Voids 4 2 1 - Exam GENERAL EXAM: Alert, active, pleasant 64-year-old gentleman, on room air, comfortable in no apparent distress. HEAD: Normocephalic. EYES: Normal reaction of pupils, equal size. NOSE: Clear with pink turbinates. THROAT: No erythema or exudates. NECK: No masses, no JVD. CHEST: No chest wall deformity. LUNGS: Equal air entry with no crackles, wheeze, rhonchi or dullness. CVS: S1 and S2 normal with no audible murmur, regular rhythm. ABDOMEN: No hepatosplenomegaly, normal bowel sounds, no guarding or rigidity. SPINE: No scoliosis or deformity SKIN: No rashes CENTRAL NERVOUS SYSTEM: No focal deficits, tone is normal in all 4 extremities. EXTREMITIES: There is no peripheral edema. No clubbing, no cyanosis. Peripheral pulses are intact. - Labs CBC & Chem 7: 01/08/20 05:01 01/08/20 05:01 Labs: Abnormal Lab Results - Last 24 Hours (Table) 01/10/20 01/10/20 01/11/20 Range/Units 16:25 20:52 06:11 POC Glucose (mg/dL) 162 H 230 H 177 H (75-99) mg/dL 01/11/20 Range/Units 11:29 POC Glucose (mg/dL) 282 H (75-99) mg/dL Assessment and Plan Assessment: #1. Severe triple-vessel coronary artery disease, heart catheterization was performed on 01/06/2020 and showed calcified triple-vessel CAD with proximal LAD of 99%, mid LAD of 90%, circumflex of 100%, and RCA of 100%, awaiting myocardial revascularization surgery possibly next week #2. Severe mitral annular calcification with moderate severe mitral regurgitation and moderate mitral stenosis, patient is undergoing transesophageal echocardiogram, there is a possibility of surgical intervention. In addition to his mild aortic stenosis, and mild tricuspid regurgitation with no evidence of pulmonary hypertension and preserved EF of 55-60%, status post transesophageal echocardiogram on 01/09/2020 showing severe mitral annulus calcification with [id number] mitral regurgitation, mild TR, mild aortic stenosis with trace regurgitation, no shunting across the anterior atrial septum, and mild atherosclerotic changes of the descending thoracic aorta #3. Hypertension #4. Hyperlipidemia #5. Type 2 diabetes #6. History of COPD and emphysema #7. Chronic groundglass changes on his previous CT chest with limited amount of fibrosis at the lung bases and the PFT dated on 02/25/2016 showing FEV1 of 2.81 L or 80% of predicted, with FVC of 3.5 L or 76% of predicted, an FEV1 to FVC ratio of 106% predicted, consistent with mild restriction and minimal diffusion defect #8. History of pulmonary nodules, noted on previous CT chest from June [address] chest from December 2015 showing small 6.6 mm nodule in the right upper lobe and another 6.5 mm nodule in the left upper lobe along with nonspecific hilar node enlargement, and patient was supposed to have follow-up CT surveillance #9. Chronic and ongoing nicotine dependence, carries 30 years of smoking one to 2 packs a day #10. History of coronary artery disease with previous stenting #11. Hypertension #12. Scoliosis of thoracic spine #13. Family history of premature coronary artery disease Plan: The patient was seen and evaluated by Dr. Sunny Jay from the pulmonary standpoint We'll follow the patient postoperatively I, the cosigning physician, performed a history & physical examination of the patient. Lungs sounds are clear. Maintaining good O2 saturations in the 90s on room air. I discussed the assessment and plan of care with my nurse practitioner, Ernestine Rodriguez. I attest to the above note as dictated by her.
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
[2020-01-11] MEDS: SODIUM CHLORIDE 0.9% 1,000 ML IV SCH (16:10)
[2020-01-11 16:44] LABS: Glucose,Whole Blood 160 mg/dL (75-99)
[2020-01-11 21:19] LABS: Glucose,Whole Blood 185 mg/dL (75-99)
--- NOTE | 2020-01-11 22:16 | PN ---
PROGRESS NOTE He is getting albumin treatments today preoperatively for Monday's surgery. He is getting a bypass. He has unstable angina, four vessel bypass. Pulmonary saw him. Heavy nicotine addiction. Chronic total occlusion of the RCA, previous stent proximal and mid circumflex 2014, hypertension, dyslipidemia, diabetes mellitus. Sitting up in bed. He has had no distress. No chest pain. No shortness of breath. Blood pressure over 120s/60s, respiratory rate 18-20, pulse 60-65, O2 99. Cardiovascular S1, S2. Lungs clear. GI soft. Hematology negative Homans. Psych fair mood affect. LABS: Reviewed. ASSESSMENT: 1. Heavily calcified triple-vessel coronary artery disease. 2. Severe mitral annular calcification. 3. [id number] mitral regurgitation. 4. Mild aortic sclerosis with trace aortic insufficiency and TYRON. 5. Peripheral vascular disease. 6. Coronary artery disease. 7. Hypertension. 8. Dyslipidemia. 9. Type 2 diabetes mellitus. 10.Nicotine addiction. 11.Mild chronic obstructive pulmonary disease. He is on beta blockers, aspirin, statins, KATHY inhibitors. He is going to have, Monday with Dr. Burkett, triple-vessel myocardial revascularization. MMODL / IJN: [id number] /
[2020-01-12 06:32] LABS: Glucose,Whole Blood 186 mg/dL (75-99)
[2020-01-12] MEDS: INSULIN ASPART (NovoLOG) 100 UNIT/ML VIAL SQ SCH ×4 (06:40→21:23)
[2020-01-12] MEDS ORDERED: hydrALAZINE HCL 20 MG/ML 1 ML VIAL IVP PRN (07:36)
[2020-01-12] MEDS: EZETIMIBE 10 MG TAB PO SCH (08:09)
[2020-01-12] MEDS: ASPIRIN 81 MG PO SCH (08:09)
[2020-01-12] MEDS: METOPROLOL SUCCINATE (ER) 50 MG TAB.ER.24H PO SCH (08:09)
[2020-01-12] MEDS: FUROSEMIDE 20 MG TAB PO SCH (08:09)
[2020-01-12] MEDS: ISOSORBIDE MONONITRATE ER 30 MG TAB.ER.24H PO SCH (08:09)
[2020-01-12] MEDS: FAMOTIDINE 20 MG TAB PO SCH (08:09)
[2020-01-12] MEDS: ATORVASTATIN 80 MG TAB PO SCH (08:09)
[2020-01-12 08:13] LABS: Basophils # (A) 0.1 k/uL (0-0.2); Basophils % (A) 1 %; Eosinophils # (A) 0.6 k/uL (0-0.7); Eosinophils % (A) 7 %; HCT 47.7 % (39.0-53.0); Lymphocytes # (A) 2.1 k/uL (1.0-4.8); Lymphocytes % (A) 23 %; MCH 29.3 pg (25.0-35.0); MCHC 33.5 g/dL (31.0-37.0); MCV 87.5 fL (80.0-100.0); Mean Platelet Volume 8.6; Monocytes # (A) 0.5 k/uL (0-1.0); Monocytes % (A) 6 %; Neutrophils # (A) 5.4 k/uL (1.3-7.7); Neutrophils % (A) 60 %; Platelet Count 174 k/uL (150-450); RBC 5.45 m/uL (4.30-5.90); RDW 12.6 % (11.5-15.5)
[2020-01-12 08:23] LABS: ALT 14 U/L (4-49); AST 21 U/L (17-59); African American GFR (CKD) >90 (>60 ml/min/1.73 sqM); Alkaline Phosphatase 60 U/L (38-126); Anion Gap 6 mmol/L; Blood Urea Nitrogen 13 mg/dL (9-20); Calcium 9.2 mg/dL (8.4-10.2); Carbon Dioxide 32 mmol/L (22-30); Chloride 98 mmol/L (98-107); Glucose 249 mg/dL (74-99); Non-African American GFR(CKD) >90 (>60 ml/min/1.73 sqM); Potassium 5.1 mmol/L (3.5-5.1); Sodium 136 mmol/L (137-145); Total Bilirubin 0.9 mg/dL (0.2-1.3); Total Protein 6.6 g/dL (6.3-8.2)
[2020-01-12 08:24] LABS: Partial Thromboplastin Time 23.8 sec (22.0-30.0); Prothrombin Time 10.5 sec (9.0-12.0)
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
--- NOTE | 2020-01-12 10:42 | P.PN ---
Progress Note - Text Progress Note Date: 01/12/20 This is a pleasant 64-year-old gentleman who presented to the hospital with a chest discomfort. He underwent a heart catheterization and was found to have severe triple-vessel coronary artery disease was extremely calcified right and left coronary systems. Also he was diagnosed with valvular heart disease was mild aortic stenosis and moderate mitral insufficiency. He was seen by the cardiothoracic surgeon and the plan is to pursue with coronary artery bypass grafting this coming Monday. The patient was seen today. He is asymptomatic from a cardiovascular standpoint of view. He is hemodynamically stable. He has been maintaining normal sinus mechanism. He is on aspirin as well as high intensity statin as well as metoprolol and also oral nitrates. The patient is going to have the open heart surgery tomorrow
[2020-01-12 11:36] LABS: Glucose,Whole Blood 199 mg/dL (75-99)
[2020-01-12 16:34] LABS: Glucose,Whole Blood 388 mg/dL (75-99)
[2020-01-12] MEDS: SODIUM CHLORIDE 0.9% 1,000 ML IV SCH (16:42)
[2020-01-12 21:11] LABS: Glucose,Whole Blood 289 mg/dL (75-99)
--- NOTE | 2020-01-13 01:32 | PN ---
PROGRESS NOTE A 64-year-old white male scheduled for bypass surgery in the morning, 4-vessel bypass. Labs today showed normal sodium, white count 9.0, hemoglobin 16, sodium 136, potassium 5.1, BUN is 13, creatinine 0.84, glucose mid 100s to 300s. ASSESSMENT: 1. Unstable angina. 2. Severe coronary artery disease. 3. Diabetes mellitus. 4. Nicotine addiction. 5. Bypass surgery in the morning, cleared for surgery. 6. He has some milw-qj-gxfkxiea carotid stenosis. 7. Mild chronic obstructive pulmonary disease. Prognosis guarded. MMODL / IJN: [id number] /
[2020-01-13] MEDS ORDERED: CARDIOPLEGIC SOLN (K+ 16 MEQ/L 1,000 ML with SOD BICARB SYR 8.4% (1 MEQ/ML) 20 ML, LIDO... PERFUSION NR ×3 (05:00)
[2020-01-13] MEDS ORDERED: ceFAZolin 1,000 MG in SODIUM CHLORIDE 0.9% IRRIGATIO 1,000 ML IRRIGATION ONE (05:00)
[2020-01-13] MEDS ORDERED: NOREPINEPHRINE 4 MG in SODIUM CHLORIDE 0.9% 250 ML IV SCH (05:00)
[2020-01-13] MEDS ORDERED: ceFAZolin 2 GM in SODIUM CHLORIDE 0.9% 30 ML IVPB ONE (05:00)
[2020-01-13] MEDS ORDERED: MANNITOL 25% 12.5 GM/50 ML VIAL IV ONE ×2 (05:00)
[2020-01-13] MEDS ORDERED: PROTAMINE SULFATE 10 MG/ML 25 ML VIAL IV ONE (05:00)
[2020-01-13] MEDS ORDERED: CALCIUM CHLORIDE 100 MG/ML 10 ML SYRINGE IVP ONE (05:00)
[2020-01-13] MEDS ORDERED: HEPARIN SODIUM 1,000 UN/ML (10ML VL) IV ONE (05:00)
[2020-01-13] MEDS ORDERED: SODIUM BICARB 8.4% 50 ML SYR (1 MEQ/ML) IV ONE (05:00)
[2020-01-13] MEDS ORDERED: PHENYLEPHRINE 40 MG in SODIUM CHLORIDE 0.9% 250 ML IV ONE (05:00)
[2020-01-13] MEDS ORDERED: ALBUMIN HUMAN 5% 500 ML in EMPTY BAG 1 BAG IVPB ONE ×6 (05:00)
[2020-01-13] MEDS ORDERED: PHENYLEPHRINE 10 MG/ML VIAL IV ONE (05:00)
[2020-01-13] MEDS ORDERED: NITROGLYCERIN-D5W PMX 25 MG/250 ML BTL IV ONE (05:00)
[2020-01-13] MEDS ORDERED: MAGNESIUM SULFATE SYG 4.06 MEQ/ML SYRINGE IV ONE (05:00)
[2020-01-13] MEDS ORDERED: CHLORHEXIDINE GLUCONATE 15 ML CUP MUCOUS MEM ONE (05:00)
[2020-01-13] MEDS ORDERED: PAPAVERINE 360 MG in SODIUM CHLORIDE 0.9% 90 ML IV ONE (05:00)
[2020-01-13] MEDS ORDERED: TRANEXAMIC ACID 2,000 MG in SODIUM CHLORIDE 0.9% 80 ML IV ONE (05:00)
[2020-01-13] MEDS ORDERED: CLEVIDIPINE BUTYRATE 25 MG in EMPTY BAG 1 BAG IV SCH ×2 (05:00→15:41)
[2020-01-13] MEDS ORDERED: ceFAZolin 2,000 MG in SODIUM CHLORIDE 0.9% 30 ML IVPB ONE (05:00)
[2020-01-13] MEDS ORDERED: PROTAMINE SULFATE 250 MG in EMPTY BAG 1 BAG IV ONE (05:00)
[2020-01-13] MEDS ORDERED: ATORVASTATIN 10 MG TAB PO ONE (05:00)
[2020-01-13] MEDS ORDERED: ALBUMIN HUMAN 25% 50 ML in EMPTY BAG 1 BAG IVPB ONE (05:00)
[2020-01-13] MEDS ORDERED: HEPARIN SODIUM,PORCINE 5,000 UNIT in SODIUM CHLORIDE 0.9% 500 ML 500 ML IV ONE (05:00)
[2020-01-13] MEDS ORDERED: DILTIAZEM 125 MG in SODIUM CHLORIDE 0.9% 100 ML IV SCH ×2 (05:00→16:30)
[2020-01-13] MEDS ORDERED: NITROGLYCERIN-D5W PMX 50 MG in DEXTROSE/WATER 1 250ML.BAG IV SCH ×2 (05:00→15:41)
[2020-01-13] MEDS ORDERED: METOPROLOL TARTRATE 12.5 MG TAB PO ONE (05:00)
[2020-01-13] MEDS ORDERED: INSULIN REGULAR 100 UNIT in SODIUM CHLORIDE 0.9% 100 ML IV SCH (05:00)
[2020-01-13] MEDS ORDERED: ASPIRIN 325 MG TAB PO ONE (05:00)
[2020-01-13] MEDS ORDERED: LACTATED RINGERS 1,000 ML IV SCH (05:00)
[2020-01-13 06:25] LABS: Glucose,Whole Blood 328 mg/dL (75-99)
[2020-01-13 09:28] LABS: Glucose,Whole Blood 246 mg/dL (75-99)
[2020-01-13] MEDS ORDERED: LACTATED RINGERS 1,000 ML IV ONE (09:42)
[2020-01-13] MEDS ORDERED: LIDOCAINE 1% (10MG/ML) FOR IV START INTRADERMA ONE (09:46)
[2020-01-13] MEDS ORDERED: HYDROCORTISONE SUCCINATE 100 MG/2 ML VIAL IV ONE (09:46)
[2020-01-13] MEDS ORDERED: POTASSIUM CHLORIDE OPEN HEART 20 MEQ/50 ML BAG IVPB ONE (10:36)
[2020-01-13] MEDS ORDERED: PROTAMINE SULFATE 10 MG/ML 5 ML VIAL IV ONE (10:36)
[2020-01-13] MEDS ORDERED: SODIUM CHLORIDE 0.9% 100 ML BAG ONE (10:36)
[2020-01-13] MEDS ORDERED: fentaNYL (PF) 50 MCG/ML 50 ML VIAL ONE (10:36)
[2020-01-13] MEDS ORDERED: VECURONIUM 10 MG VIAL IV ONE (10:36)
[2020-01-13] MEDS ORDERED: SODIUM CHLORIDE 0.9% IRRIG 1,000 ML BTL IRRIGATION ONE (10:36)
[2020-01-13] MEDS ORDERED: ALBUMIN HUMAN 5% (25gm) 500 ML VIAL IVPB ONE (10:36)
[2020-01-13] MEDS ORDERED: PROPOFOL 10 MG/ML 20 ML VIAL IV ONE (10:36)
[2020-01-13] MEDS ORDERED: ceFAZolin 1,000 MG VIAL ONE (10:36)
[2020-01-13] MEDS ORDERED: MIDAZOLAM 2 MG/2 ML VIAL ONE (10:36)
[2020-01-13] MEDS ORDERED: NITROGLYCERIN-D5W PMX 50 MG/250 ML BOTTLE IV ONE (10:36)
[2020-01-13] MEDS ORDERED: HEPARIN SODIUM,PORCINE 10,000 UNIT/ML 1 ML VIAL ONE (10:36)
--- NOTE | 2020-01-13 10:37 | P.PN ---
Subjective HISTORY OF PRESENTING ILLNESS This is a pleasant 64-year-old male past medical history significant for coronary artery disease status post PCI of the proximal and midcircumflex with chronic total occlusion of the RCA and first diagonal branch as well as moderate disease in the proximal LAD with calcified right and left coronary systems, hypertension, dyslipidemia, diabetes mellitus and chronic nicotine dependence. He does not follow regularly with pediatric critical care nurse. He underwent catheterization with Dr. Fortune as well as TYRON. Catheterization revealed heavily calcified coronary arteries, severe triple vessel CAD with chronic total occlusion of the RCA and first diagonal branch, severe disease in the proximal LAD and ramus intermedius with an occluded OM and preserved LV systolic function. The LV gram revealed mitral annulus calcification and 1+ MR. TYRON reveals mildly dilated left atrium with normal LV systolic function, mild aortic stenosis with valve area of 1.6 cm with trace regurgitation, severe mitral annulus calcification with mild to moderate MR, mild TR and no shunting across the intra-atrial septum. Blood pressure 130/73 heart rate 66 afebrile maintaining oxygen saturation on room air. Currently undergoing evaluation by CT surgery for bypass grafting and possible mitral valve repair. Currently maintained on aspirin 81 mg daily, atorvastatin 80 mg daily, Zetia 10 mg daily, Lasix 20 mg daily, Imdur 30 mg daily, lisinopril 5 mg twice a day and Toprol 50 mg daily. He denies exertional chest pain. No shortness of breath, dizziness or palpitations. 01/10/2020 He is seen and examined sitting up in bed in no acute distress. HEENT denies any symptoms of exertional chest discomfort. Breathing is stable. He has no dizziness or palpitations. Blood pressure 161/101 with a heart rate of 60 maintaining oxygen saturations on room air. 01/13/2020 Pt seen and examined in on acute distress. He denies chest pain, shortness of breath, dizziness or palpitations. Blood pressure 160/79 heart rate 59 afebrile and maintaining oxygen saturation on room air. PHYSICAL EXAMINATION CONSTITUTIONAL: No apparent distress. HEENT: Head is normocephalic. Pupils are equal, round. Sclerae anicteric. Mucous membranes of the mouth are moist. No JVD. Bilateral carotid bruit. CHEST EXAMINATION: Lungs are clear to auscultation. No chest wall tenderness is noted on palpation or with deep breathing. HEART EXAMINATION: Regular rate and rhythm. S1, S2 heard. Systolic ejection murmur at the left sternal border and apex, no gallops or rub. EXTREMITIES: 2+ peripheral pulses, no lower extremity edema and no calf tendern ess. ASSESSMENT Unstable angina Coronary artery disease status post prior revascularization Valvular heart disease Hypertension Dyslipidemia COPD Diabetes mellitus Chronic nicotine dependence PLAN Continue current medication regimen as ordered. Surgery scheduled for today around noontime. Ongoing incentive spirometer use encouraged. Nurse Practitioner note has been reviewed, I agree with a documented findings and plan of care. Patient was seen and examined. Objective - Vital Signs Vital signs: Vital Signs Temp 97.9 F 01/13/20 09:37 Pulse 59 L 01/13/20 09:37 Resp 16 01/13/20 09:37 BP 160/79 01/13/20 09:37 Pulse Ox 98 01/13/20 09:37 Intake & Output 01/12/20 01/13/20 01/13/20 18:59 06:59 18:59 Intake Total 980 400 Output Total 300 Balance 980 -300 400 Intake: IV 400 Oral 980 Output: Urine 300 Other: Voiding Method Toilet Toilet # Voids 1 2 - Labs CBC & Chem 7: 01/12/20 07:30 01/12/20 07:30 Labs: Abnormal Lab Results - Last 24 Hours (Table) 01/12/20 01/12/20 01/12/20 Range/Units 07:30 11:31 16:32 POC Glucose (mg/dL) 199 H 388 H (75-99) mg/dL Crossmatch See Detail 01/12/20 01/13/20 01/13/20 Range/Units 21:09 06:23 09:20 POC Glucose (mg/dL) 289 H 328 H 246 H (75-99) mg/dL Crossmatch
[2020-01-13 12:28] LABS: ABG Base Excess 1.6 mmol/L; ABG Glucose Whole Blood 231 mg/dL (75-99); ABG HCO3 28 mmol/L (21-25); ABG Hematocrit 46 % (34.0-46.0); ABG Ionized Calcium 4.8 mg/dL (4.5-5.3); ABG Lactic Acid Whole Blood 1.7 mmol/L (0.5-1.6); ABG Oxygen Saturation 99.5 % (94-97); ABG PCO2 48 mmHg (35-45); ABG PH 7.37 (7.35-7.45); ABG PO2 214 mmHg (83-108); ABG Potassium Whole Blood 4.7 mmol/L (3.4-4.5); ABG Sodium Whole Blood 138 mmol/L (135-146); ABG TCO2 29 mmol/L (19-24)
[2020-01-13 13:50] LABS: ABG Base Excess 0.9 mmol/L; ABG Glucose Whole Blood 157 mg/dL (75-99); ABG HCO3 27 mmol/L (21-25); ABG Hematocrit 47 % (34.0-46.0); ABG Ionized Calcium 4.9 mg/dL (4.5-5.3); ABG Lactic Acid Whole Blood 1.5 mmol/L (0.5-1.6); ABG Oxygen Saturation 99.6 % (94-97); ABG PCO2 48 mmHg (35-45); ABG PH 7.36 (7.35-7.45); ABG PO2 228 mmHg (83-108); ABG Potassium Whole Blood 4.2 mmol/L (3.4-4.5); ABG Sodium Whole Blood 140 mmol/L (135-146); ABG TCO2 29 mmol/L (19-24)
[2020-01-13 14:30] LABS: ABG Base Excess 0.8 mmol/L; ABG Glucose Whole Blood 136 mg/dL (75-99); ABG HCO3 26 mmol/L (21-25); ABG Hematocrit 42 % (34.0-46.0); ABG Ionized Calcium 4.7 mg/dL (4.5-5.3); ABG Lactic Acid Whole Blood 1.3 mmol/L (0.5-1.6); ABG Oxygen Saturation 99.7 % (94-97); ABG PCO2 41 mmHg (35-45); ABG PO2 224 mmHg (83-108); ABG Sodium Whole Blood 140 mmol/L (135-146); ABG TCO2 27 mmol/L (19-24)
[2020-01-13 15:24] LABS: ABG Glucose Whole Blood 109 mg/dL (75-99); ABG HCO3 26 mmol/L (21-25); ABG Hematocrit 38 % (34.0-46.0); ABG Ionized Calcium 4.6 mg/dL (4.5-5.3); ABG Lactic Acid Whole Blood 1.5 mmol/L (0.5-1.6); ABG Oxygen Saturation 99.3 % (94-97); ABG PCO2 41 mmHg (35-45); ABG PH 7.41 (7.35-7.45); ABG PO2 159 mmHg (83-108); ABG Potassium Whole Blood 3.7 mmol/L (3.4-4.5); ABG Sodium Whole Blood 141 mmol/L (135-146); ABG TCO2 27 mmol/L (19-24)
--- NOTE | 2020-01-13 15:26 | P.PN ---
Progress Note - Text Procedure performed: Transesophageal echocardiography Indication for the procedure: Coronary artery bypass graft surgery, ischemia monitoring, assessment of valvular function, intracardiac air monitoring, assessment of regional wall motion abnormalities and hemodynamic monitoring. Probe insertion: Under general anesthesia, uneventful. Pre-bypass findings: Left ventricle normal in dimension and LV ejection fraction is approximately 55 - 60%. No regional wall motion abnormalities observed. Left atrium Normal in size. No thrombus seen in the appendage. Right atrium normal in size. No patent foramen ovale or ASD seen. Right ventricle normal in structure and function. Aortic valve appears to be stenotic. There is a calcification of all the 3 leaflets and restricted movement of the left and right coronary cusps. No Aortic Regurgitation seen. Aortic valve area peak gradient is 18 mmHg and a mean gradient of 40 mmHg. (Mild aortic stenosis) Mitral valve heavily calcified and appears to be stenotic. There is a 3 mm mean gradient across the mitral valve. (Mild mitral stenosis). Mild mitral regurgitation seen. Mild tricuspid regurgitation seen. Pulmonic valve appears to be normal. Descending aorta grade 2 atheroma seen. No pericardial effusion noted.
[2020-01-13] MEDS ORDERED: AMIODARONE 300 MG in DEXTROSE 5% IN WATER 250 ML IV PRN ×2 (15:41)
[2020-01-13] MEDS ORDERED: METOCLOPRAMIDE 5 MG/ML 2 ML VIAL IVP PRN (15:41)
[2020-01-13] MEDS ORDERED: DEXMEDETOMIDINE/0.9% NACL(PMX) 400 MCG in EMPTY BAG 1 BAG IV SCH (15:41)
[2020-01-13] MEDS ORDERED: BENZOCAINE/MENTHOL LOZENG 1 EACH LOZENGE MUCOUS MEM PRN (15:41)
[2020-01-13] MEDS ORDERED: Potassium Replacement Protocol 1 EACH MISC MISCELLANE PRN (15:41)
[2020-01-13] MEDS ORDERED: hydrALAZINE HCL 20 MG/ML 1 ML VIAL IVP PRN (15:41)
[2020-01-13] MEDS ORDERED: ONDANSETRON 4 MG/2 ML VIAL IVP PRN (15:41)
[2020-01-13] MEDS ORDERED: CALCIUM GLUCONATE 2 GM in SODIUM CHLORIDE 0.9% 100 ML IVPB PRN (15:41)
[2020-01-13] MEDS ORDERED: DEXTROSE 5% IN WATER 100 ML with AMIODARONE 150 MG IV PRN (15:41)
[2020-01-13] MEDS ORDERED: AMIODARONE 360 MG in DEXTROSE 5% IN WATER 200 ML IV PRN ×2 (15:41)
[2020-01-13] MEDS ORDERED: IPRATROPIUM-ALBUTEROL 3 ML NEB INHALATION PRN (15:41)
[2020-01-13] MEDS ORDERED: Phosphorus Replacement Protoco 1 EACH MISC MISCELLANE PRN (15:41)
[2020-01-13] MEDS ORDERED: Magnesium Replacement Protocol 1 EACH MISC MISCELLANE PRN (15:41)
--- NOTE | 2020-01-13 15:55 | P.OP ---
Date of Procedure: 01/13/20 Preoperative Diagnosis: Coronary artery disease, unstable angina Postoperative Diagnosis: Same Procedure(s) Performed: Off-pump CABG 3 with NICOLE to LAD, saphenous vein grafts to intermediate and to posterior lateral (distal branch of the circumflex), endovascular vein harvest, ligation of left atrial appendage with 45 mm AtriCure clip Implants: 45 mm AtriCure Anesthesia: GETA Surgeon: Hong Burkett [employer]: Saran Martino [employer]: Denilson Martel Estimated Blood Loss (ml): 500 IV fluids (ml): 2,000 Urine output (ml): 500 Pathology: none sent Condition: stable Disposition: ICU Indications for Procedure: 64-year-old male presents with chest pain and shortness of breath. Positive murmur of aortic stenosis with intact second heart tone. Echocardiogram showed moderate left ear and severe mitral annular calcification with no aortic insufficiency and mild mitral regurgitation and mild mitral stenosis. TYRON confirmed these findings. Cardiac catheterization showed severe calcific three- vessel coronary artery disease. There was occlusion of the right coronary artery and occlusion of the major marginal branch of the circumflex coronary artery. The LAD had diffuse disease and was dominant and wrapped around the apex to the inferior wall. Case was discussed in detail with Dr. Asher Fortune and decision was made to proceed with coronary revascularization and not attempt valve replacement at this time. Was unclear whether the patient was taking Plavix at home so we waited the appropriate 5 day period. Operative Findings: Intraoperative TYRON confirmed the findings of the preoperative TYRON. NICOLE was an excellent conduit however the left pleural space was completely fused. The radial artery was explored on the left forearm but was heavily calcified and not appropriate conduit for use. The greater saphenous vein was of good quality and was harvested from mid calf to groin on the left-hand side. There was diffuse calcific coronary disease present. The LAD was grafted in its midportion where it had a 2 mm lumen and was a good vessel. Distal to this it did become heavily calcified and this persisted around the apex. Was not grafted further bleeding distally. The intermediate coronary artery was grafted in its midportion. It was a diffusely diseased 1.5 mm vessel. Major marginal branch was explored. It was an intramyocardial vessel. Despite this even distally it was heavily diseased vessel which when opened had minimal lumen and no flow. It was oversewn shut. The EEA was a very small vessel and was not grafted. The posterior lateral branch which was the distal circumflex branch was a good size vessel with a 1.5-1.75 mm lumen and was grafted. Patient remained hemodynamically stable throughout the procedure. Description of Procedure: The patient was brought to the operating room, placed supine on the operating table, anesthetized and intubated. [place]-Vladislav catheter and radial arterial line of been placed in the preop holding area pleat. TYRON probe was placed with findings as noted above. The anterior torso left upper extremity and bilateral lower extremities were sterilely prepped and draped. The left radial artery was exposed Lord but was a heavily calcified vessel and was abandoned. The left greater saphenous vein was harvested from mid calf to groin using endovascular vein harvest technique. Simultaneous sternotomy was performed, the left hemisternum retracted upwards, the left internal mammary artery was harvested on a vascularized pedicle left intact on its origin from the subclavian. The left pleural space was completely fused. The chest tube was placed in the bed of the NICOLE and brought out through the chest wall on the left-hand side. Standard sternal retractor was placed and the pericardium was opened in the midline. The heart was exposed with pericardial sutures. Patient was systemically set heparinized and the a CTs were maintained greater than 250 during grafting. Suction stabilization was used during distal anastomosis. The NICOLE to the LAD was performed first. The LAD was grafted in its midportion where it was a 2 mm vessel of good quality. Distally it was heavily calcified near the apex. Anastomosis proceeded without event. 1.5 Vamsi flow through was used mitral flow blood during the anastom osis on completion of the anastomosis it was removed and effectively probing the proximal distal portion of the anastomosis. Anastomosis was performed with 8-0 Prolene suture. On completion of the anastomosis the inflow was opened with good noted hemostasis. NICOLE pedicle was tacked surrounding epicardium with 6-0 silk. Saphenous vein was now examined. 2 pieces were chosen for the vein grafts. We first explored the marginal artery. This was an intramyocardial artery and was palpable proximally as it was calcified. We dissected out more distally and it was still a very diseased vessel. On opening it we could find minimal lumen and there was no [place] flow. It was decided to close the vessel and it was oversewn with a 7-0 Prolene suture. Saphenous vein was loaded on passport anastomotic connector and connected to the mid ascending aorta to the left of midline. It was brought beneath the NICOLE to the coronary artery. A 45 mm AtriCure clip was sized and placed on the base of the left atrial appendage. Intermediate coronary artery was stabilized and opened in its midportion. It had a 1.5 mm lumen and was a relatively normal vessel here. Saphenous vein was anastomosed in end-to-side fashion using 7-0 Prolene suture and the 1.5 mm flow through for control of blood flow. On completion of the anastomosis the flow through was removed effectively probing the proximal and distal portion of the anastomosis. Suture was tied with good result and hemostasis. Inflow was open. The graft was noted to lay well. Attention was now directed to the inferior wall. Distal circumflex coronary artery ran as a posterior lateral branch. It was a 1.5-1.75 mm vessel of good quality. The PDA was very small. Was decided to just graft the KALYANI. Second piece of saphenous vein was loaded on a second passport anastomotic connector and connected to the ascending aorta in the midline just above the sinotubular junction. Was brought to the inferior wall and the KALYANI was stabilized. It was opened and blood flow control with a 1.5 mm flow through. Anastomosis of the second saphenous vein to the KALYANI was performed with running 7-0 Prolene suture. On completion anastomosis the flow through was removed effectively probing the proximal distal portion anastomosis. Suture was tied with good result and hemostasis. Inflow was open. The graft was noted to lay well. Heparin was reversed with protamine. Good hemostasis was obtained throughout. After assuring good hemostasis, the sternum was closed with 8 sternal wires. 32-[place] right pleural and 36 mediastinal chest tubes were placed prior to closure. The fascia was closed with 0 Ethibond subcutaneous and subcuticular layers with layers of Vicryl suture. Dry sterile dressings were applied and the patient was transferred to ICU in stable condition.
[2020-01-13 16:11] LABS: Glucose,Whole Blood 93 mg/dL (75-99)
[2020-01-13] MEDS: IPRATROPIUM-ALBUTEROL 3 ML NEB INHALATION SCH ×3 (16:26→20:05)
[2020-01-13] MEDS: LACTATED RINGERS 1,000 ML IV SCH (16:32)
[2020-01-13 16:39] LABS: ABG Base Excess 1.8 mmol/L; ABG HCO3 28 mmol/L (21-25); ABG Oxygen Saturation 99.7 % (94-97); ABG PCO2 51 mmHg (35-45); ABG PH 7.34 (7.35-7.45); ABG PO2 377 mmHg (83-108); ABG TCO2 29 mmol/L (19-24)
[2020-01-13 16:43] LABS: Basophils % (A) 0 %; Eosinophils # (A) 0.1 k/uL (0-0.7); Eosinophils % (A) 1 %; HCT 34.4 % (39.0-53.0); Lymphocytes # (A) 0.7 k/uL (1.0-4.8); Lymphocytes % (A) 7 %; MCH 29.7 pg (25.0-35.0); MCHC 34.8 g/dL (31.0-37.0); MCV 85.4 fL (80.0-100.0); Mean Platelet Volume 9.1; Monocytes # (A) 0.5 k/uL (0-1.0); Monocytes % (A) 5 %; Neutrophils # (A) 8.4 k/uL (1.3-7.7); Neutrophils % (A) 85 %; Platelet Count 137 k/uL (150-450); RBC 4.02 m/uL (4.30-5.90); RDW 12.5 % (11.5-15.5); WBC 9.9 k/uL (3.8-10.6)
[2020-01-13 16:45] LABS: HGB 11.9 gm/dL (13.0-17.5); INR 1.1 (<1.2); Partial Thromboplastin Time 24.5 sec (22.0-30.0); Prothrombin Time 11.5 sec (9.0-12.0)
--- NOTE | 2020-01-13 16:46 | XR ---
"EXAMINATION TYPE: XR chest 1V portable DATE OF EXAM: 01/13/2020 CLINICAL HISTORY: Postoperative cardiac surgery. TECHNIQUE: Supine portable view of the chest obtained. COMPARISON: Chest radiograph 01/06/2020 FINDINGS: Endotracheal tube at the level of the inferior clavicular heads. Sternotomy wires. Left at rial appendage clip. Enteric tube distal tip overlies the stomach, with side-port at the level of the GE junction. Right internal jugular central venous catheter is coiled over the right atrium distally . Bilateral chest tubes and mediastinal drain. No cardiomegaly. Coarsened interstitial lung markings. No significant pulmonary vascular congestion. No focal opacity. IMPRESSION: 1. Right-sided internal jugular central venous catheter, likely [place]-Vladislav catheter, is distally coile d over the right atrium. 2. Additional tubes and lines as above. 3. Chronic interstitial changes. A [place] level critical message alert has been initiated for Barbara Rodriguez via the [employer] | Cri tical Results System on 01/13/2020 4:43 PM. This message alert has been sent to Barbara Rodriguez via the pr eferences provided by the clinician for the receipt of Radiology Critical Findings. Message ID [id number]."
[2020-01-13 16:50] LABS: ALT 11 U/L (4-49); AST 18 U/L (17-59); African American GFR (CKD) >90 (>60 ml/min/1.73 sqM); Albumin 3.4 g/dL (3.5-5.0); Alkaline Phosphatase 35 U/L (38-126); Anion Gap 5 mmol/L; Blood Urea Nitrogen 14 mg/dL (9-20); Calcium 8.1 mg/dL (8.4-10.2); Carbon Dioxide 27 mmol/L (22-30); Chloride 108 mmol/L (98-107); Glucose 95 mg/dL (74-99); Magnesium 1.7 mg/dL (1.6-2.3); Non-African American GFR(CKD) >90 (>60 ml/min/1.73 sqM); Potassium 4.3 mmol/L (3.5-5.1); Sodium 140 mmol/L (137-145); Total Bilirubin 0.7 mg/dL (0.2-1.3); Total Protein 5.4 g/dL (6.3-8.2)
[2020-01-13 17:22] LABS: Glucose,Whole Blood 132 mg/dL (75-99)
--- NOTE | 2020-01-13 17:56 | XR ---
EXAMINATION TYPE: XR chest 1V portable DATE OF EXAM: 01/13/2020 CLINICAL HISTORY: Difficulty breathing progress study. Postopen cardiac surgery. Assess pulmonary ar terial catheter position. TECHNIQUE: Single AP portable supine view of the chest is obtained. COMPARISON: Chest x-ray from earlier today. FINDINGS: Stable endotracheal and orogastric tubes. Redemonstration of left atrial appendage clip a long with overlying sternal wires and mediastinal clips. Metallic star shaped density near right aspe ct fourth sternal wire unchanged from prior perhaps overlying button. Interval uncoiling of right int ernal jugular [place]-Vladislav catheter with tip now at level of pulmonary outflow tract. Persistent bilater al chest tubes and mediastinal drainage catheter. Chronic parenchymal changes without suspicious focal airspace opacity, pleural effusion, or pneumotho rax. Mild cardiomegaly. Osseous structures are demineralized. IMPRESSION: 1. Interval successful uncoiling of right internal jugular [place]-Vladislav catheter. 2. Chronic brain changes and cardiomegaly without new acute pulmonary process
[2020-01-13 18:11] LABS: Glucose,Whole Blood 150 mg/dL (75-99)
[2020-01-13] MEDS: ACETAMINOPHEN IV (For NPO) 1,000 MG in EMPTY BAG 1 BAG IVPB SCH ×2 (18:28→23:58)
[2020-01-13] MEDS: KETOROLAC 30 MG/ML 1 ML VIAL IVP SCH (18:46)
[2020-01-13 19:07] LABS: Basophils % (A) 0 %; Eosinophils # (A) 0.1 k/uL (0-0.7); Eosinophils % (A) 1 %; HCT 36.9 % (39.0-53.0); HGB 12.6 gm/dL (13.0-17.5); Lymphocytes # (A) 1.6 k/uL (1.0-4.8); Lymphocytes % (A) 11 %; MCH 29.5 pg (25.0-35.0); MCHC 34.1 g/dL (31.0-37.0); MCV 86.3 fL (80.0-100.0); Mean Platelet Volume 9.9; Monocytes % (A) 7 %; Neutrophils # (A) 10.9 k/uL (1.3-7.7); Neutrophils % (A) 79 %; Platelet Count 144 k/uL (150-450); RBC 4.27 m/uL (4.30-5.90); RDW 12.7 % (11.5-15.5); WBC 13.8 k/uL (3.8-10.6)
[2020-01-13] MEDS: MAGNESIUM SULFATE-D5W PMX 1 GM in DEXTROSE/WATER 1 100ML.BAG IVPB SCH ×2 (19:17→20:30)
[2020-01-13 19:19] LABS: Glucose,Whole Blood 156 mg/dL (75-99)
[2020-01-13] MEDS: INSULIN REGULAR 100 UNIT in SODIUM CHLORIDE 0.9% 100 ML IV SCH (19:32)
[2020-01-13 19:41] LABS: ABG HCO3 26 mmol/L (21-25); ABG Oxygen Saturation 98.4 % (94-97); ABG PCO2 51 mmHg (35-45); ABG PH 7.32 (7.35-7.45); ABG PO2 130 mmHg (83-108); ABG TCO2 28 mmol/L (19-24); Allen Test Performed? Yes
[2020-01-13 20:08] LABS: Glucose,Whole Blood 183 mg/dL (75-99)
[2020-01-13 21:04] LABS: Glucose,Whole Blood 197 mg/dL (75-99)
[2020-01-13 22:02] LABS: Glucose,Whole Blood 159 mg/dL (75-99)
[2020-01-13] MEDS: ALBUMIN HUMAN 5% 250 ML in EMPTY BAG 1 BAG IVPB PRN (22:08)
[2020-01-13 22:20] LABS: Basophils % (A) 0 %; Eosinophils # (A) 0.1 k/uL (0-0.7); Eosinophils % (A) 1 %; HCT 32.8 % (39.0-53.0); HGB 11.2 gm/dL (13.0-17.5); Lymphocytes # (A) 1.3 k/uL (1.0-4.8); Lymphocytes % (A) 11 %; MCH 29.3 pg (25.0-35.0); MCHC 34.1 g/dL (31.0-37.0); Monocytes # (A) 0.9 k/uL (0-1.0); Monocytes % (A) 7 %; Neutrophils # (A) 9.9 k/uL (1.3-7.7); Neutrophils % (A) 81 %; Platelet Count 126 k/uL (150-450); RBC 3.82 m/uL (4.30-5.90); RDW 13.4 % (11.5-15.5); WBC 12.3 k/uL (3.8-10.6)
[2020-01-13 23:06] LABS: Glucose,Whole Blood 130 mg/dL (75-99)
--- NOTE | 2020-01-13 23:14 | PN ---
PROGRESS NOTE A 64-year-old white male with COPD exacerbation. Status post bypass surgery, just was extubated tonight. on ICU staff reviewed on the computer. Discussed case with nurse. Prognosis guarded. Status post bypass, just extubated. Please see further orders. MMODL / IJN: [id number] /
[2020-01-13] MEDS: HEPARIN SODIUM,PORCINE 5,000 UNIT/ML 1 ML VIAL SQ SCH (23:19)
[2020-01-13 23:58] LABS: Glucose,Whole Blood 108 mg/dL (75-99)
[2020-01-14] MEDS: KETOROLAC 30 MG/ML 1 ML VIAL IVP SCH ×4 (00:04→18:53)
[2020-01-14 01:22] LABS: Glucose,Whole Blood 112 mg/dL (75-99)
[2020-01-14 02:15] LABS: Glucose,Whole Blood 125 mg/dL (75-99)
[2020-01-14 03:15] LABS: Glucose,Whole Blood 131 mg/dL (75-99)
[2020-01-14] MEDS ORDERED: HYDROcodone/APAP 5-325MG 1 EACH TAB PO PRN (03:34)
[2020-01-14 04:15] LABS: Glucose,Whole Blood 119 mg/dL (75-99)
[2020-01-14 04:23] LABS: Basophils % (A) 0 %; Eosinophils # (A) 0.1 k/uL (0-0.7); Eosinophils % (A) 1 %; HCT 33.1 % (39.0-53.0); HGB 11.2 gm/dL (13.0-17.5); Lymphocytes % (A) 11 %; MCH 29.4 pg (25.0-35.0); MCHC 33.9 g/dL (31.0-37.0); MCV 86.8 fL (80.0-100.0); Mean Platelet Volume 10.2; Monocytes # (A) 0.9 k/uL (0-1.0); Monocytes % (A) 10 %; Neutrophils # (A) 6.6 k/uL (1.3-7.7); Neutrophils % (A) 75 %; Platelet Count 113 k/uL (150-450); RBC 3.81 m/uL (4.30-5.90); RDW 12.6 % (11.5-15.5); WBC 8.8 k/uL (3.8-10.6)
[2020-01-14 04:38] LABS: Ionized Calcium 4.8 mg/dL (4.5-5.3)
[2020-01-14 04:55] LABS: ALT 9 U/L (4-49); AST 23 U/L (17-59); African American GFR (CKD) >90 (>60 ml/min/1.73 sqM); Albumin 3.2 g/dL (3.5-5.0); Alkaline Phosphatase 40 U/L (38-126); Anion Gap 5 mmol/L; Blood Urea Nitrogen 14 mg/dL (9-20); Calcium 8.1 mg/dL (8.4-10.2); Carbon Dioxide 25 mmol/L (22-30); Chloride 105 mmol/L (98-107); Glucose 110 mg/dL (74-99); Magnesium 2.2 mg/dL (1.6-2.3); Non-African American GFR(CKD) >90 (>60 ml/min/1.73 sqM); Sodium 135 mmol/L (137-145); Total Bilirubin 0.7 mg/dL (0.2-1.3); Total Protein 5.2 g/dL (6.3-8.2)
[2020-01-14 05:09] LABS: Glucose,Whole Blood 104 mg/dL (75-99)
[2020-01-14] MEDS: HYDROcodone/APAP 5-325MG 1 EACH TAB PO PRN ×3 (05:45→16:11)
[2020-01-14] MEDS: ALBUMIN HUMAN 5% 250 ML in EMPTY BAG 1 BAG IVPB PRN ×2 (05:47→08:18)
[2020-01-14 06:25] LABS: Glucose,Whole Blood 137 mg/dL (75-99)
[2020-01-14 07:11] LABS: Glucose,Whole Blood 150 mg/dL (75-99)
--- NOTE | 2020-01-14 07:22 | XR ---
EXAMINATION TYPE: XR chest 1V portable DATE OF EXAM: 01/14/2020 COMPARISON: 01/13/2020 HISTORY: Shortness of breath TECHNIQUE: Single frontal view of the chest is obtained. FINDINGS: ET and NG tube have been removed. Chest tube remains in position no sizable pneumothorax. Bilateral infiltrate and pleural effusion. Mediastinal drains stable. Right-sided [place]-Vladislav catheter with the tip overlying the proximal pulmonary outflow tract. Atherosclerotic change aorta. IMPRESSION: 1. Extensive bilateral consolidation and small effusion slightly progressed from prior exam. 2. ECG and NG tube removal
[2020-01-14] MEDS ORDERED: ACETAMINOPHEN TAB 500 MG TAB PO PRN (07:23)
[2020-01-14] MEDS: IPRATROPIUM-ALBUTEROL 3 ML NEB INHALATION SCH ×4 (07:54→20:36)
[2020-01-14 08:06] LABS: Glucose,Whole Blood 134 mg/dL (75-99)
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
[2020-01-14] MEDS: HEPARIN SODIUM,PORCINE 5,000 UNIT/ML 1 ML VIAL SQ SCH ×2 (08:19→16:12)
[2020-01-14] MEDS: CLOPIDOGREL 75 MG TAB PO SCH (08:30)
[2020-01-14] MEDS: ATORVASTATIN 40 MG TAB PO SCH (08:30)
[2020-01-14] MEDS: ASPIRIN 325 MG TAB PO SCH (08:30)
[2020-01-14] MEDS ORDERED: bisacodyL 10 MG SUPP RECTAL PRN (09:00)
[2020-01-14] MEDS ORDERED: METOPROLOL TARTRATE 12.5 MG TAB PO SCH (09:00)
[2020-01-14] MEDS ORDERED: MAGNESIUM HYDROXIDE 2,400 MG/10 ML CUP PO PRN (09:00)
[2020-01-14] MEDS ORDERED: PANTOPRAZOLE 40 MG/10 ML VIAL IVP SCH (09:00)
[2020-01-14 09:10] LABS: Glucose,Whole Blood 130 mg/dL (75-99)
--- NOTE | 2020-01-14 09:42 | PN ---
PROGRESS NOTE Mr. Liu is a 64-year-old male who underwent coronary artery bypass grafting yesterday, has a history of multivessel disease. He is doing well this morning. He is sitting up in the chair. He is in sinus mechanism. He denies any dizziness or palpitation. He has mild chest wall tenderness. He underwent the NICOLE to LAD, saphenous vein graft to the intermediate and posterolateral distal branch of the left circumflex with a closure of the left atrial appendage. He continues to be at this time on aspirin, Lipitor, metoprolol tartrate .5 mg twice a day. PHYSICAL EXAMINATION: Blood pressure 102/50 with a heart rate in 70s. LUNGS: With decreased air exchange at the bases, no wheezes. HEART: Regular rate and rhythm, S1, S2, plus rub, no gallop. ABDOMEN: Soft, nontender. EXTREMITIES: No edema. LAB DATA: Revealed BUN and creatinine 14 and 0.56, potassium 4.0, hemoglobin of 11.2. His chest x-ray this morning shows a small pleural effusion with no clear infiltrate. IMPRESSION: 1. Status post coronary bypass grafting with severe coronary artery disease. 2. Prior history of smoking. 3. Prior history of stenting. 4. History of diabetes. 5. Hyperlipidemia. RECOMMENDATION: From the cardiac standpoint, will continue present therapy increase physical therapy. Continue incentive spirometry. Hopefully, the Page-Vladislav catheter will be removed today and depending on his progress, further recommendation will be made. MMODL / IJN: [id number] /
[2020-01-14 10:15] LABS: Glucose,Whole Blood 114 mg/dL (75-99)
--- NOTE | 2020-01-14 10:57 | PN ---
PROGRESS NOTE A 64-year-old white male, status post triple vessel CABG surgeries, extubated last night, normal sinus rhythm. He is on no inotropes or pressors. He has got multiple lines in .10 temp 97, pulse 75, respiratory 12-14, blood pressure 113/60 O2 99. Lungs show diminished respirations even he is 98% on 2 L oxygen. Head normocephalic, atraumatic. Lungs show scattered wheeze. Abdomen is soft. Extremities, no edema. LABS: Were reviewed. He is status post CABG surgery for triple-vessel disease. He has some mitral and monitor mitral regurgitation, peripheral vascular disease, history of coronary artery disease, hypertension, dyslipidemia, type 2 diabetes mellitus, nicotine addiction, and some mild COPD. Continue current postop treatment. Risk factor modification. Monitor sugars closely. MMODL / IJN: [id number] /
[2020-01-14 11:24] LABS: Glucose,Whole Blood 164 mg/dL (75-99)
[2020-01-14] MEDS: LACTATED RINGERS 1,000 ML IV SCH (11:49)
[2020-01-14 12:21] LABS: Glucose,Whole Blood 204 mg/dL (75-99)
[2020-01-14 13:24] LABS: Glucose,Whole Blood 199 mg/dL (75-99)
[2020-01-14 13:40] VITALS: BMI 26.3
--- NOTE | 2020-01-14 14:16 | P.PN ---
Subjective Progress Note Date: 01/14/20 Principal diagnosis: Severe triple-vessel coronary artery disease, status post CABG 3. Postoperative day #1. Patient was reevaluated today on 01/14/20, patient was recently diagnosed with severe calcified triple-vessel coronary artery disease and unstable angina. He was also noted to have [id number] mitral valve stenosis and severe mitral annular calcification. Patient underwent off pump coronary artery bypass grafting 3, NICOLE to LAD, reverse saphenous vein graft to intermediate and the posterior lateral branch endovascular harvest of the left greater saphenous v ein, and ligation of the left atrial appendage. Postoperatively, I saw the patient for ventilator management, few hours after arrival to the ICU, patient was extubated uneventfully, and he tolerated the extubation well. Patient was cleared for his surgery a few days ago by Dr. Correa. Presently the patient is sitting in the recliner, he has some postsurgical chest discomfort, denies shortness of breath, in normal sinus rhythm, not requiring any inotropes or pressors. He is hemodynamically stable. Chest x-ray showed minimal atelectatic changes, and postoperative changes. Labs this morning were all reviewed including CBC, and basic metabolic profile, all normal Objective - Vital Signs Vital signs: Vital Signs Temp 99.3 F 01/14/20 08:00 Pulse 86 01/14/20 13:00 Resp 31 H 01/14/20 13:00 BP 122/63 01/14/20 13:00 Pulse Ox 95 01/14/20 13:00 Intake & Output 01/13/20 01/14/20 01/14/20 18:59 06:59 18:59 Intake Total 420.978 6896.147 729.972 Output Total 1100 858 392 Balance -612.142 9974.147 337.972 Weight 80.8 kg 80.8 kg Intake: IV 610 2004.5 718.5 ACETAMINOPHEN IV (For NPO 100 ) 1,000 mg In Empty Bag 1 bag @ 400 mls/hr IVPB Q6HR [facility] Rx#:[id number] Albumin 5% 500 250 CO/CI injectate 330 60 Lactated Ringers 1,000 ml 150 600 350 @ 20 mls/hr IV .Q24H [facility] Rx#:[id number] Magnesium sulfate 200 Nitroglycerine 16.5 1.5 Pressure bag 27 108 57 cefzolin 150 Intake, IV Titration 29.983 43.647 11.472 Amount Clevidipine Butyrate 25 16.933 2.533 mg In Empty Bag 1 bag @ 1 MG/HR 2 mls/hr IV .Q24H [facility] Rx#:[id number] Dexmedetomidine/0.9% NaCl 17.672 (Pmx) 400 mcg In Empty Bag 1 bag @ Titrate IV . Q0M [facility] Rx#:[id number] Insulin Regular 100 unit 23.442 11.472 In Sodium Chloride 0.9% 100 ml @ Per Protocol IV .Q0M [facility] Rx#:[id number] propofoL 1,000 mg In 13.05 Empty Bag 1 bag @ Titrate IV .Q0M [facility] Rx#: [id number] Output: Chest Tube Drainage 270 456 165 Chest Tube Left 90 100 50 Chest Tube Right Pleural/ 180 356 100 Mediastinal mediastinal 15 Urine 330 402 227 Estimated Blood Loss 500 Other: Voiding Method Indwelling Catheter Indwelling Catheter ABP, PAP, CO, CI - Last Documented Arterial Blood Pressure 95/48 Pulmonary Artery Pressure 28/8 Cardiac Output 5.4 Cardiac Index 2.9 - Exam Physical Exam: Revealed a 64-year-old white male, pleasant, in no distress. On 2 L nasal cannula. Head: Atraumatic, normocephalic. HEENT:[Neck is supple.] [No neck masses.] [No thyromegaly.] [No JVD.] Chest: Symmetrical chest expansion, diminished breath sounds at the bases,Mediastinal/right pleural chest tube present to continuous wall suction, 250 mL serosanguineous drainage overnight, 550 mL since surgery. Left pleural chest tube present to continuous wall suction, 45 mL serosanguineous drainage overnight, 190 mL since surgery. No air leaks present Cardiac Exam: [Normal S1 and S2, no S3 gallop, 2/6 systolic murmur thought the precordium.Last CO/CI 5.0/2.7 on no inotropes or pressors. Heart hugger in place with patient demonstrating appropriate use. Antiembolism stockings, SCDs present. Abdomen: [Soft, nontender, no megaly, no rebound, no guarding, normal bowel sounds.] Extremities: [No clubbing, no edema, no cyanosis.] Neurological Exam: [No focal neurologic deficit.] Alert and oriented 3.( Skin: is warm and dry with evidence of good perfusion. Anterior chest incision well approximated and covered with dry intact dressing. Left lower extremity EVH site well approximated. - Labs CBC & Chem 7: 01/14/20 04:10 01/14/20 04:10 Labs: Abnormal Lab Results - Last 24 Hours (Table) 01/12/20 01/13/20 01/13/20 Range/Units 07:30 12:31 13:53 WBC (3.8-10.6) k/uL RBC (4.30-5.90) m/uL Hgb (13.0-17.5) gm/dL Hct (39.0-53.0) % Plt Count (150-450) k/uL Neutrophils # (1.3-7.7) k/uL Lymphocytes # (1.0-4.8) k/uL ABG pH (7.35-7.45) ABG pCO2 48 H 48 H (35-45) mmHg ABG pO2 214 H 228 H (83-108) mmHg ABG HCO3 28 H 27 H (21-25) mmol/L ABG Total CO2 29 H 29 H (19-24) mmol/L ABG O2 Saturation 99.5 H 99.6 H (94-97) % ABG Hematocrit 47 H (34.0-46.0) % ABG Potassium 4.7 H (3.4-4.5) mmol/L ABG Glucose 231 H 157 H (75-99) mg/dL ABG Lactic Acid 1.7 H (0.5-1.6) mmol/L Hemoglobin (13.0-17.5) gm/dL Sodium (137-145) mmol/L Chloride (98-107) mmol/L Creatinine (0.66-1.25) mg/dL Glucose (74-99) mg/dL POC Glucose (mg/dL) (75-99) mg/dL Calcium (8.4-10.2) mg/dL Alkaline Phosphatase (38-126) U/L Total Protein (6.3-8.2) g/dL Albumin (3.5-5.0) g/dL Arterial Blood Potassium 4.7 H (3.4-4.5) mmol/L Arterial Blood Glucose 231 H 157 H (75-99) mg/dL Crossmatch See Detail 01/13/20 01/13/20 01/13/20 Range/Units 14:34 15:27 16:15 WBC (3.8-10.6) k/uL RBC 4.02 L (4.30-5.90) m/uL Hgb 11.9 L D (13.0-17.5) gm/dL Hct 34.4 L (39.0-53.0) % Plt Count 137 L (150-450) k/uL Neutrophils # 8.4 H (1.3-7.7) k/uL Lymphocytes # 0.7 L (1.0-4.8) k/uL ABG pH (7.35-7.45) ABG pCO2 (35-45) mmHg ABG pO2 224 H 159 H (83-108) mmHg ABG HCO3 26 H 26 H (21-25) mmol/L ABG Total CO2 27 H 27 H (19-24) mmol/L ABG O2 Saturation 99.7 H 99.3 H (94-97) % ABG Hematocrit (34.0-46.0) % ABG Potassium (3.4-4.5) mmol/L ABG Glucose 136 H 109 H (75-99) mg/dL ABG Lactic Acid (0.5-1.6) mmol/L Hemoglobin 12.4 L (13.0-17.5) gm/dL Sodium (137-145) mmol/L Chloride (98-107) mmol/L Creatinine (0.66-1.25) mg/dL Glucose (74-99) mg/dL POC Glucose (mg/dL) (75-99) mg/dL Calcium (8.4-10.2) mg/dL Alkaline Phosphatase (38-126) U/L Total Protein (6.3-8.2) g/dL Albumin (3.5-5.0) g/dL Arterial Blood Potassium (3.4-4.5) mmol/L Arterial Blood Glucose 136 H 109 H (75-99) mg/dL Crossmatch 01/13/20 01/13/20 01/13/20 Range/Units 16:15 16:31 17:21 WBC (3.8-10.6) k/uL RBC (4.30-5.90) m/uL Hgb (13.0-17.5) gm/dL Hct (39.0-53.0) % Plt Count (150-450) k/uL Neutrophils # (1.3-7.7) k/uL Lymphocytes # (1.0-4.8) k/uL ABG pH 7.34 L (7.35-7.45) ABG pCO2 51 H (35-45) mmHg ABG pO2 377 H (83-108) mmHg ABG HCO3 28 H (21-25) mmol/L ABG Total CO2 29 H (19-24) mmol/L ABG O2 Saturation 99.7 H (94-97) % ABG Hematocrit (34.0-46.0) % ABG Potassium (3.4-4.5) mmol/L ABG Glucose (75-99) mg/dL ABG Lactic Acid (0.5-1.6) mmol/L Hemoglobin (13.0-17.5) gm/dL Sodium (137-145) mmol/L Chloride 108 H (98-107) mmol/L Creatinine 0.61 L (0.66-1.25) mg/dL Glucose (74-99) mg/dL POC Glucose (mg/dL) 132 H (75-99) mg/dL Calcium 8.1 L (8.4-10.2) mg/dL Alkaline Phosphatase 35 L (38-126) U/L Total Protein 5.4 L (6.3-8.2) g/dL Albumin 3.4 L (3.5-5.0) g/dL Arterial Blood Potassium (3.4-4.5) mmol/L Arterial Blood Glucose (75-99) mg/dL Crossmatch 01/13/20 01/13/20 01/13/20 Range/Units 18:09 18:58 18:58 WBC 13.8 H (3.8-10.6) k/uL RBC 4.27 L (4.30-5.90) m/uL Hgb 12.6 L (13.0-17.5) gm/dL Hct 36.9 L (39.0-53.0) % Plt Count 144 L (150-450) k/uL Neutrophils # 10.9 H (1.3-7.7) k/uL Lymphocytes # (1.0-4.8) k/uL ABG pH (7.35-7.45) ABG pCO2 (35-45) mmHg ABG pO2 (83-108) mmHg ABG HCO3 (21-25) mmol/L ABG Total CO2 (19-24) mmol/L ABG O2 Saturation (94-97) % ABG Hematocrit (34.0-46.0) % ABG Potassium (3.4-4.5) mmol/L ABG Glucose (75-99) mg/dL ABG Lactic Acid (0.5-1.6) mmol/L Hemoglobin (13.0-17.5) gm/dL Sodium (137-145) mmol/L Chloride (98-107) mmol/L Creatinine (0.66-1.25) mg/dL Glucose (74-99) mg/dL POC Glucose (mg/dL) 150 H 156 H (75-99) mg/dL Calcium (8.4-10.2) mg/dL Alkaline Phosphatase (38-126) U/L Total Protein (6.3-8.2) g/dL Albumin (3.5-5.0) g/dL Arterial Blood Potassium (3.4-4.5) mmol/L Arterial Blood Glucose (75-99) mg/dL Crossmatch 01/13/20 01/13/20 01/13/20 Range/Units 19:38 20:01 21:01 WBC (3.8-10.6) k/uL RBC (4.30-5.90) m/uL Hgb (13.0-17.5) gm/dL Hct (39.0-53.0) % Plt Count (150-450) k/uL Neutrophils # (1.3-7.7) k/uL Lymphocytes # (1.0-4.8) k/uL ABG pH 7.32 L (7.35-7.45) ABG pCO2 51 H (35-45) mmHg ABG pO2 130 H (83-108) mmHg ABG HCO3 26 H (21-25) mmol/L ABG Total CO2 28 H (19-24) mmol/L ABG O2 Saturation 98.4 H (94-97) % ABG Hematocrit (34.0-46.0) % ABG Potassium (3.4-4.5) mmol/L ABG Glucose (75-99) mg/dL ABG Lactic Acid (0.5-1.6) mmol/L Hemoglobin (13.0-17.5) gm/dL Sodium (137-145) mmol/L Chloride (98-107) mmol/L Creatinine (0.66-1.25) mg/dL Glucose (74-99) mg/dL POC Glucose (mg/dL) 183 H 197 H (75-99) mg/dL Calcium (8.4-10.2) mg/dL Alkaline Phosphatase (38-126) U/L Total Protein (6.3-8.2) g/dL Albumin (3.5-5.0) g/dL Arterial Blood Potassium (3.4-4.5) mmol/L Arterial Blood Glucose (75-99) mg/dL Crossmatch 01/13/20 01/13/20 01/13/20 Range/Units 22:00 22:00 23:02 WBC 12.3 H (3.8-10.6) k/uL RBC 3.82 L (4.30-5.90) m/uL Hgb 11.2 L (13.0-17.5) gm/dL Hct 32.8 L (39.0-53.0) % Plt Count 126 L (150-450) k/uL Neutrophils # 9.9 H (1.3-7.7) k/uL Lymphocytes # (1.0-4.8) k/uL ABG pH (7.35-7.45) ABG pCO2 (35-45) mmHg ABG pO2 (83-108) mmHg ABG HCO3 (21-25) mmol/L ABG Total CO2 (19-24) mmol/L ABG O2 Saturation (94-97) % ABG Hematocrit (34.0-46.0) % ABG Potassium (3.4-4.5) mmol/L ABG Glucose (75-99) mg/dL ABG Lactic Acid (0.5-1.6) mmol/L Hemoglobin (13.0-17.5) gm/dL Sodium (137-145) mmol/L Chloride (98-107) mmol/L Creatinine (0.66-1.25) mg/dL Glucose (74-99) mg/dL POC Glucose (mg/dL) 159 H 130 H (75-99) mg/dL Calcium (8.4-10.2) mg/dL Alkaline Phosphatase (38-126) U/L Total Protein (6.3-8.2) g/dL Albumin (3.5-5.0) g/dL Arterial Blood Potassium (3.4-4.5) mmol/L Arterial Blood Glucose (75-99) mg/dL Crossmatch 01/13/20 01/14/20 01/14/20 Range/Units 23:55 01:15 02:07 WBC (3.8-10.6) k/uL RBC (4.30-5.90) m/uL Hgb (13.0-17.5) gm/dL Hct (39.0-53.0) % Plt Count (150-450) k/uL Neutrophils # (1.3-7.7) k/uL Lymphocytes # (1.0-4.8) k/uL ABG pH (7.35-7.45) ABG pCO2 (35-45) mmHg ABG pO2 (83-108) mmHg ABG HCO3 (21-25) mmol/L ABG Total CO2 (19-24) mmol/L ABG O2 Saturation (94-97) % ABG Hematocrit (34.0-46.0) % ABG Potassium (3.4-4.5) mmol/L ABG Glucose (75-99) mg/dL ABG Lactic Acid (0.5-1.6) mmol/L Hemoglobin (13.0-17.5) gm/dL Sodium (137-145) mmol/L Chloride (98-107) mmol/L Creatinine (0.66-1.25) mg/dL Glucose (74-99) mg/dL POC Glucose (mg/dL) 108 H 112 H 125 H (75-99) mg/dL Calcium (8.4-10.2) mg/dL Alkaline Phosphatase (38-126) U/L Total Protein (6.3-8.2) g/dL Albumin (3.5-5.0) g/dL Arterial Blood Potassium (3.4-4.5) mmol/L Arterial Blood Glucose (75-99) mg/dL Crossmatch 01/14/20 01/14/20 01/14/20 Range/Units 03:14 04:10 04:10 WBC (3.8-10.6) k/uL RBC 3.81 L (4.30-5.90) m/uL Hgb 11.2 L (13.0-17.5) gm/dL Hct 33.1 L (39.0-53.0) % Plt Count 113 L (150-450) k/uL Neutrophils # (1.3-7.7) k/uL Lymphocytes # (1.0-4.8) k/uL ABG pH (7.35-7.45) ABG pCO2 (35-45) mmHg ABG pO2 (83-108) mmHg ABG HCO3 (21-25) mmol/L ABG Total CO2 (19-24) mmol/L ABG O2 Saturation (94-97) % ABG Hematocrit (34.0-46.0) % ABG Potassium (3.4-4.5) mmol/L ABG Glucose (75-99) mg/dL ABG Lactic Acid (0.5-1.6) mmol/L Hemoglobin (13.0-17.5) gm/dL Sodium 135 L (137-145) mmol/L Chloride (98-107) mmol/L Creatinine 0.56 L (0.66-1.25) mg/dL Glucose 110 H (74-99) mg/dL POC Glucose (mg/dL) 131 H (75-99) mg/dL Calcium 8.1 L (8.4-10.2) mg/dL Alkaline Phosphatase (38-126) U/L Total Protein 5.2 L (6.3-8.2) g/dL Albumin 3.2 L (3.5-5.0) g/dL Arterial Blood Potassium (3.4-4.5) mmol/L Arterial Blood Glucose (75-99) mg/dL Crossmatch 01/14/20 01/14/20 01/14/20 Range/Units 04:12 05:08 06:20 WBC (3.8-10.6) k/uL RBC (4.30-5.90) m/uL Hgb (13.0-17.5) gm/dL Hct (39.0-53.0) % Plt Count (150-450) k/uL Neutrophils # (1.3-7.7) k/uL Lymphocytes # (1.0-4.8) k/uL ABG pH (7.35-7.45) ABG pCO2 (35-45) mmHg ABG pO2 (83-108) mmHg ABG HCO3 (21-25) mmol/L ABG Total CO2 (19-24) mmol/L ABG O2 Saturation (94-97) % ABG Hematocrit (34.0-46.0) % ABG Potassium (3.4-4.5) mmol/L ABG Glucose (75-99) mg/dL ABG Lactic Acid (0.5-1.6) mmol/L Hemoglobin (13.0-17.5) gm/dL Sodium (137-145) mmol/L Chloride (98-107) mmol/L Creatinine (0.66-1.25) mg/dL Glucose (74-99) mg/dL POC Glucose (mg/dL) 119 H 104 H 137 H (75-99) mg/dL Calcium (8.4-10.2) mg/dL Alkaline Phosphatase (38-126) U/L Total Protein (6.3-8.2) g/dL Albumin (3.5-5.0) g/dL Arterial Blood Potassium (3.4-4.5) mmol/L Arterial Blood Glucose (75-99) mg/dL Crossmatch 01/14/20 01/14/20 01/14/20 Range/Units 07:10 08:04 09:09 WBC (3.8-10.6) k/uL RBC (4.30-5.90) m/uL Hgb (13.0-17.5) gm/dL Hct (39.0-53.0) % Plt Count (150-450) k/uL Neutrophils # (1.3-7.7) k/uL Lymphocytes # (1.0-4.8) k/uL ABG pH (7.35-7.45) ABG pCO2 (35-45) mmHg ABG pO2 (83-108) mmHg ABG HCO3 (21-25) mmol/L ABG Total CO2 (19-24) mmol/L ABG O2 Saturation (94-97) % ABG Hematocrit (34.0-46.0) % ABG Potassium (3.4-4.5) mmol/L ABG Glucose (75-99) mg/dL ABG Lactic Acid (0.5-1.6) mmol/L Hemoglobin (13.0-17.5) gm/dL Sodium (137-145) mmol/L Chloride (98-107) mmol/L Creatinine (0.66-1.25) mg/dL Glucose (74-99) mg/dL POC Glucose (mg/dL) 150 H 134 H 130 H (75-99) mg/dL Calcium (8.4-10.2) mg/dL Alkaline Phosphatase (38-126) U/L Total Protein (6.3-8.2) g/dL Albumin (3.5-5.0) g/dL Arterial Blood Potassium (3.4-4.5) mmol/L Arterial Blood Glucose (75-99) mg/dL Crossmatch 01/14/20 01/14/20 01/14/20 Range/Units 10:14 11:22 12:20 WBC (3.8-10.6) k/uL RBC (4.30-5.90) m/uL Hgb (13.0-17.5) gm/dL Hct (39.0-53.0) % Plt Count (150-450) k/uL Neutrophils # (1.3-7.7) k/uL Lymphocytes # (1.0-4.8) k/uL ABG pH (7.35-7.45) ABG pCO2 (35-45) mmHg ABG pO2 (83-108) mmHg ABG HCO3 (21-25) mmol/L ABG Total CO2 (19-24) mmol/L ABG O2 Saturation (94-97) % ABG Hematocrit (34.0-46.0) % ABG Potassium (3.4-4.5) mmol/L ABG Glucose (75-99) mg/dL ABG Lactic Acid (0.5-1.6) mmol/L Hemoglobin (13.0-17.5) gm/dL Sodium (137-145) mmol/L Chloride (98-107) mmol/L Creatinine (0.66-1.25) mg/dL Glucose (74-99) mg/dL POC Glucose (mg/dL) 114 H 164 H 204 H (75-99) mg/dL Calcium (8.4-10.2) mg/dL Alkaline Phosphatase (38-126) U/L Total Protein (6.3-8.2) g/dL Albumin (3.5-5.0) g/dL Arterial Blood Potassium (3.4-4.5) mmol/L Arterial Blood Glucose (75-99) mg/dL Crossmatch 01/14/20 Range/Units 13:22 WBC (3.8-10.6) k/uL RBC (4.30-5.90) m/uL Hgb (13.0-17.5) gm/dL Hct (39.0-53.0) % Plt Count (150-450) k/uL Neutrophils # (1.3-7.7) k/uL Lymphocytes # (1.0-4.8) k/uL ABG pH (7.35-7.45) ABG pCO2 (35-45) mmHg ABG pO2 (83-108) mmHg ABG HCO3 (21-25) mmol/L ABG Total CO2 (19-24) mmol/L ABG O2 Saturation (94-97) % ABG Hematocrit (34.0-46.0) % ABG Potassium (3.4-4.5) mmol/L ABG Glucose (75-99) mg/dL ABG Lactic Acid (0.5-1.6) mmol/L Hemoglobin (13.0-17.5) gm/dL Sodium (137-145) mmol/L Chloride (98-107) mmol/L Creatinine (0.66-1.25) mg/dL Glucose (74-99) mg/dL POC Glucose (mg/dL) 199 H (75-99) mg/dL Calcium (8.4-10.2) mg/dL Alkaline Phosphatase (38-126) U/L Total Protein (6.3-8.2) g/dL Albumin (3.5-5.0) g/dL Arterial Blood Potassium (3.4-4.5) mmol/L Arterial Blood Glucose (75-99) mg/dL Crossmatch Assessment and Plan Assessment: Impression: Status post CABG for triple vessel coronary artery disease, postoperative day #1. Severe mitral calcification and moderate mitral regurgitation. Severe peripheral vessel occlusive disease. Hypertension. Dyslipidemia. Type 2 diabetes. Tobacco dependence syndrome. Mild COPD, FEV1 is 72%. Family history of premature coronary artery disease. Recommendation: Continue present supportive care measures. Continue that of blockers Plavix aspirin and statin. Continue incentive spirometry. Early ambulation. Counseled regarding smoking cessation. Discontinue unnecessary catheters Continue pain management. Continue to monitor chest tubes and possibly discontinue in the next 24 hours. Discontinue Anza-Vladislav catheter. Continue GI and DVT prophylaxis. Will follow. Time with Patient: Less than 30
[2020-01-14 15:19] LABS: Glucose,Whole Blood 206 mg/dL (75-99)
[2020-01-14 16:08] LABS: Glucose,Whole Blood 175 mg/dL (75-99)
[2020-01-14 17:48] LABS: Glucose,Whole Blood 148 mg/dL (75-99)
[2020-01-14 19:01] LABS: Glucose,Whole Blood 158 mg/dL (75-99)
[2020-01-14] MEDS: INSULIN REGULAR 100 UNIT in SODIUM CHLORIDE 0.9% 100 ML IV SCH (19:03)
[2020-01-14] MEDS: SENNOSIDES-DOCUSATE SODIUM 1 EACH TAB PO SCH (20:36)
[2020-01-14] MEDS ORDERED: METOPROLOL TARTRATE 25 MG TAB PO SCH (21:00)
[2020-01-14 21:04] LABS: Glucose,Whole Blood 171 mg/dL (75-99)
[2020-01-14 22:10] LABS: Glucose,Whole Blood 140 mg/dL (75-99)
[2020-01-14 23:56] LABS: Glucose,Whole Blood 120 mg/dL (75-99)
[2020-01-15] MEDS: KETOROLAC 30 MG/ML 1 ML VIAL IVP SCH ×4 (01:25→18:57)
[2020-01-15] MEDS: HEPARIN SODIUM,PORCINE 5,000 UNIT/ML 1 ML VIAL SQ SCH ×3 (01:25→16:26)
[2020-01-15 04:01] LABS: Glucose,Whole Blood 120 mg/dL (75-99)
[2020-01-15 04:34] LABS: Basophils % (A) 0 %; Eosinophils # (A) 0.2 k/uL (0-0.7); Eosinophils % (A) 2 %; HCT 29.9 % (39.0-53.0); HGB 10.2 gm/dL (13.0-17.5); Lymphocytes # (A) 1.3 k/uL (1.0-4.8); Lymphocytes % (A) 15 %; MCHC 34.1 g/dL (31.0-37.0); MCV 88.1 fL (80.0-100.0); Mean Platelet Volume 8.8; Monocytes # (A) 1.1 k/uL (0-1.0); Monocytes % (A) 13 %; Neutrophils # (A) 5.8 k/uL (1.3-7.7); Neutrophils % (A) 67 %; Platelet Count 122 k/uL (150-450); RBC 3.39 m/uL (4.30-5.90); RDW 12.4 % (11.5-15.5); WBC 8.7 k/uL (3.8-10.6)
[2020-01-15 04:45] LABS: ALT 6 U/L (4-49); AST 21 U/L (17-59); African American GFR (CKD) >90 (>60 ml/min/1.73 sqM); Albumin 3.2 g/dL (3.5-5.0); Alkaline Phosphatase 43 U/L (38-126); Anion Gap 5 mmol/L; Blood Urea Nitrogen 14 mg/dL (9-20); Calcium 8.5 mg/dL (8.4-10.2); Carbon Dioxide 23 mmol/L (22-30); Chloride 105 mmol/L (98-107); Glucose 107 mg/dL (74-99); Non-African American GFR(CKD) >90 (>60 ml/min/1.73 sqM); Potassium 3.8 mmol/L (3.5-5.1); Sodium 133 mmol/L (137-145); Total Bilirubin 0.7 mg/dL (0.2-1.3); Total Protein 5.3 g/dL (6.3-8.2)
[2020-01-15 04:50] LABS: Ionized Calcium 4.8 mg/dL (4.5-5.3)
[2020-01-15] MEDS ORDERED: Potassium Replacement Protocol 1 EACH MISC MISCELLANE PRN (04:52)
[2020-01-15 05:21] LABS: Glucose,Whole Blood 122 mg/dL (75-99)
[2020-01-15] MEDS ORDERED: POTASSIUM CHLORIDE ER 20 MEQ TAB.ER PO SCH (06:00)
[2020-01-15 06:38] LABS: Glucose,Whole Blood 106 mg/dL (75-99)
--- NOTE | 2020-01-15 07:40 | XR ---
EXAMINATION TYPE: XR chest 1V portable DATE OF EXAM: 01/15/2020 Comparison: 01/14/2020 Clinical History: 64-year-old male Post Operative Cardiac Surgery Findings: Median sternotomy wires are present. Heart remains borderline enlarged. Diffuse interstitial density is unchanged. Patchy right greater than left bibasilar opacities remain. No appreciable pneumothorax. Right-sided chest tube removed in the interval. Right-sided Shunk-Vladislav catheter also removed in the i nterval. An IJ sheath remains in place. Impression: Possible residual mild pulmonary vascular congestion. Patchy right greater than left bibasilar opacit ies remain.
[2020-01-15] MEDS: IPRATROPIUM-ALBUTEROL 3 ML NEB INHALATION SCH ×4 (07:43→19:37)
[2020-01-15 08:01] LABS: Glucose,Whole Blood 203 mg/dL (75-99)
[2020-01-15] MEDS ORDERED: FUROSEMIDE 10 MG/ML 2 ML VIAL IV ONE (08:07)
[2020-01-15] MEDS: PANTOPRAZOLE 40 MG TABLET PO SCH (09:42)
--- NOTE | 2020-01-15 09:48 | PN ---
PROGRESS NOTE Mr. Liu is a 64-year-old male, status post coronary artery bypass grafting, he is doing well this morning. He denies any chest pain. He is sitting up in the chair. He denies any dizziness or palpitation. He continued to be in sinus mechanism. Hemodynamically, he has been stable. His chest tube drainage is minimal. MEDICATION: Include aspirin, Lipitor 40 mg daily, Plavix 75 mg daily, metoprolol 25 mg twice a day. PHYSICAL EXAMINATION: Blood pressure 122/60 with a heart rate in the 80s. LUNGS: With mild decrease in breath sounds at the bases, no wheezes. HEART: Regular rate and rhythm, S1, S2, plus rub, no gallop. ABDOMEN: Soft, nontender. EXTREMITIES: No significant edema. IMPRESSION: 1. Status post coronary artery bypass grafting, stable. 2. Prior history of percutaneous revascularization. 3. Prior history of smoking. 4. Mitral anulus calcification. 5. Diabetes. 6. Hyperlipidemia. 7. Prior history of smoking. RECOMMENDATION: From the cardiac standpoint, will continue present therapy. Increase his level of activity. Continue incentive spirometry. Depending on the trend of his blood pressure, further adjustment of his regimen will be made. MMODL / IJN: [id number] /
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
[2020-01-15] MEDS: ATORVASTATIN 40 MG TAB PO SCH (10:14)
[2020-01-15] MEDS: ASPIRIN 325 MG TAB PO SCH (10:14)
[2020-01-15] MEDS: METOPROLOL TARTRATE 50 MG TAB PO SCH ×2 (10:14→21:40)
[2020-01-15] MEDS: CLOPIDOGREL 75 MG TAB PO SCH (10:14)
[2020-01-15] MEDS: guaiFENesin 600 MG TABLET.ER PO SCH (10:14)
--- NOTE | 2020-01-15 12:27 | P.ARTDOP ---
Arterial Doppler Bilateral radial artery testing: Date of study: 01/07/2020 Reason for study: Pre-CABG Findings: Doppler assessment shows no significant right to left or segmental pressure gradient. Digital plethysmography shows a significant pressure change on the right with radial artery compression but no significant [place] change on the left. Imaging shows the right to be 3 x 3.2 mm proximally, 1.9 x 2.1 mm mid, and 1.6 x 2.3 mm distally. The left is 3.4 x 3.6 proximally, 1.9 x 3.1 mm mid and 1.9 x 2.1 mm distally. Impression: Usable radial artery on the left. Right radial does not meet criteria and based on pressure change with radial compression.
[2020-01-15 12:28] LABS: Glucose,Whole Blood 305 mg/dL (75-99)
--- NOTE | 2020-01-15 12:28 | P.ARTDOP ---
Arterial Doppler LOWER EXTREMITY ARTERIAL DOPPLER: DATE OF SERVICE: 01/07/2020: Reason for study: Preop CABG. Doppler waveforms: Atypical bilaterally throughout. Pulse volume recording: []. Pressure gradients: Above the low thigh. Ankle-brachial indices: 0.59 on the right and 0.5 on the left. Toe brachial indices: 0.27 on the right, 0.09 on the left Impression: Suspect moderate bilateral fem-pop disease with possibly significant iliac component. Clinical correlation recommended..
[2020-01-15] MEDS ORDERED: INSULIN ASPART (NovoLOG) 100 UNIT/ML VIAL SQ SCH (12:30)
--- NOTE | 2020-01-15 12:30 | P.VSCSTY ---
Greater Saphenous Vein Mapping This is bilateral lower extremity greater saphenous vein mapping. Date of service: 01/07/2020 Vein quality and ultrasound appearance: We see no intraluminal thrombus or wall changes.. Vein size groin right : 6.2 x 8 groin left: 5.2 x 3.5 High thigh right: 3.3 x 4.0 high thigh left: 4.2 x 4.0 Mid thigh right: 3.6 x 4.1 mid thigh left: 4.3 x 4.4 Above-knee right: 3.4 x 4 above- knee left: 3.3 x 2.7 Below knee right: 3.5 x 3.8 below-knee left: 3 x 3.9 Mid calf right: 1.8 x 2.2 mid calf left: 1.9 x 2.8 Ankle right: 2.5 x 2.5 ankle left: 2.9 x 3.2 Impression: Usable bilateral greater saphenous vein. There is an area in both mid calves that may be a bit small. Clinical correlation recommended..
[2020-01-15 13:05] LABS: Glucose,Whole Blood 304 mg/dL (75-99)
--- NOTE | 2020-01-15 13:45 | P.PN ---
Subjective Progress Note Date: 01/15/20 Principal diagnosis: Severe triple-vessel coronary artery disease, status post CABG 3. Postoperative day #2 Patient was reevaluated today on 01/14/20, patient was recently diagnosed with severe calcified triple-vessel coronary artery disease and unstable angina. He was also noted to have [id number] mitral valve stenosis and severe mitral annular calcification. Patient underwent off pump coronary artery bypass grafting 3, NICOLE to LAD, reverse saphenous vein graft to intermediate and the posterior lateral branch endovascular harvest of the left greater saphenous ve in, and ligation of the left atrial appendage. Postoperatively, I saw the patient for ventilator management, few hours after arrival to the ICU, patient was extubated uneventfully, and he tolerated the extubation well. Patient was cleared for his surgery a few days ago by Dr. Correa. Presently the patient is sitting in the recliner, he has some postsurgical chest discomfort, denies shortness of breath, in normal sinus rhythm, not requiring any inotropes or pressors. He is hemodynamically stable. Chest x-ray showed minimal atelectatic changes, and postoperative changes. Labs this morning were all reviewed including CBC, and basic metabolic profile, all normal Patient was reevaluated today on 01/15/20, remains in the ICU, on room air, asymptomatic, continues to have left-sided pleural chest tube and mediastinal chest tube. Chest x-ray showed mostly some atelectasis and nonspecific interstitial changes. Patient is doing well with incentive spirometry, pulling above 1500 mL. He is in sinus rhythm, asymptomatic. Hemoglobin is 10.2. CVP is 10.Draining thin serosanguineous drainage with mediastinal chest tube draining 90 mL output in the last 8 hours and 160 mL output in the last 24 hours, left pleural chest tube draining 80 mL output the last 8 hours, and 120 mL output last 24 hours. Objective - Vital Signs Vital signs: Vital Signs Temp 98.4 F 01/15/20 12:00 Pulse 74 01/15/20 12:57 Resp 28 H 01/15/20 12:00 BP 129/62 01/15/20 12:00 Pulse Ox 96 01/15/20 12:00 Intake & Output 01/14/20 01/15/20 01/15/20 18:59 06:59 18:59 Intake Total 1075.424 309.058 348.710 Output Total 612 486 390 Balance 463.424 -176.942 -41.290 Weight 80.8 kg 82.8 kg Intake: IV 1033.5 283 53 Albumin 5% 250 CO/CI injectate 60 Lactated Ringers 1,000 ml 600 250 50 @ 20 mls/hr IV .Q24H [facility] Rx#:[id number] Nitroglycerine 1.5 Pressure bag 72 33 3 cefzolin 50 Intake, IV Titration 41.924 26.058 45.710 Amount Insulin Regular 100 unit 41.924 26.058 45.710 In Sodium Chloride 0.9% 100 ml @ Per Protocol IV .Q0M [facility] Rx#:[id number] Oral 250 Output: Chest Tube Drainage 235 210 40 Chest Tube Left 80 80 20 Chest Tube Right Pleural/ 100 Mediastinal mediastinal 55 130 20 Urine 377 276 350 Other: Voiding Method Indwelling Catheter Indwelling Catheter Indwelling Catheter # Voids 1 ABP, PAP, CO, CI - Last Documented Arterial Blood Pressure 95/48 Pulmonary Artery Pressure 28/8 Cardiac Output 5.4 Cardiac Index 2.9 - Exam Physical Exam: Revealed a 64-year-old white male, pleasant, in no distress. On room air. Head: Atraumatic, normocephalic. HEENT:[Neck is supple.] [No neck masses.] [No thyromegaly.] [No JVD.] Chest: Symmetrical chest expansion, diminished breath sounds at the bases,Mediastinal chest tube to continuous wall suction, 160 mL serosanginous output in 24 hours. Left pleural chest tube to continous wall suction, 120 mL serosanguinous output in 24 hours. Cardiac Exam: [Normal S1 and S2, no S3 gallop, 2/6 systolic murmur thought the precordium.Last CO/CI 5.0/2.7 on no inotropes or pressors. Heart hugger in place with patient demonstrating appropriate use. Antiembolism stockings, SCDs present. Abdomen: [Soft, nontender, no megaly, no rebound, no guarding, normal bowel sounds.] Extremities: [No clubbing, no edema, no cyanosis.] Neurological Exam: [No focal neurologic deficit.] Alert and oriented 3. Skin: is warm and dry with evidence of good perfusion. Anterior chest incision well approximated and covered with dry intact dressing. Left lower extremity EVH site well approximated. - Labs CBC & Chem 7: 01/15/20 04:07 01/15/20 04:07 Labs: Abnormal Lab Results - Last 24 Hours (Table) 01/14/20 01/14/20 01/14/20 Range/Units 15:18 16:07 17:46 RBC (4.30-5.90) m/uL Hgb (13.0-17.5) gm/dL Hct (39.0-53.0) % Plt Count (150-450) k/uL Monocytes # (0-1.0) k/uL Sodium (137-145) mmol/L Glucose (74-99) mg/dL POC Glucose (mg/dL) 206 H 175 H 148 H (75-99) mg/dL Total Protein (6.3-8.2) g/dL Albumin (3.5-5.0) g/dL 01/14/20 01/14/20 01/14/20 Range/Units 19:00 21:01 22:09 RBC (4.30-5.90) m/uL Hgb (13.0-17.5) gm/dL Hct (39.0-53.0) % Plt Count (150-450) k/uL Monocytes # (0-1.0) k/uL Sodium (137-145) mmol/L Glucose (74-99) mg/dL POC Glucose (mg/dL) 158 H 171 H 140 H (75-99) mg/dL Total Protein (6.3-8.2) g/dL Albumin (3.5-5.0) g/dL 01/14/20 01/15/20 01/15/20 Range/Units 23:55 03:59 04:07 RBC 3.39 L (4.30-5.90) m/uL Hgb 10.2 L (13.0-17.5) gm/dL Hct 29.9 L (39.0-53.0) % Plt Count 122 L (150-450) k/uL Monocytes # 1.1 H (0-1.0) k/uL Sodium (137-145) mmol/L Glucose (74-99) mg/dL POC Glucose (mg/dL) 120 H 120 H (75-99) mg/dL Total Protein (6.3-8.2) g/dL Albumin (3.5-5.0) g/dL 01/15/20 01/15/20 01/15/20 Range/Units 04:07 05:19 06:37 RBC (4.30-5.90) m/uL Hgb (13.0-17.5) gm/dL Hct (39.0-53.0) % Plt Count (150-450) k/uL Monocytes # (0-1.0) k/uL Sodium 133 L (137-145) mmol/L Glucose 107 H (74-99) mg/dL POC Glucose (mg/dL) 122 H 106 H (75-99) mg/dL Total Protein 5.3 L (6.3-8.2) g/dL Albumin 3.2 L (3.5-5.0) g/dL 01/15/20 01/15/20 01/15/20 Range/Units 08:00 12:08 13:03 RBC (4.30-5.90) m/uL Hgb (13.0-17.5) gm/dL Hct (39.0-53.0) % Plt Count (150-450) k/uL Monocytes # (0-1.0) k/uL Sodium (137-145) mmol/L Glucose (74-99) mg/dL POC Glucose (mg/dL) 203 H 305 H 304 H (75-99) mg/dL Total Protein (6.3-8.2) g/dL Albumin (3.5-5.0) g/dL Assessment and Plan Assessment: Impression: Status post CABG for triple vessel coronary artery disease, postoperative day #2 Severe mitral calcification and moderate mitral regurgitation. Severe peripheral vessel occlusive disease. Hypertension. Dyslipidemia. Type 2 diabetes. Tobacco dependence syndrome. Mild COPD, FEV1 is 72%. Family history of premature coronary artery disease. Recommendation: Continue present supportive care measures. Pleural chest tube and mediastinal chest tubes will likely be removed today. Gentle diuresis considering the chest x-ray findings. Continue that of blockers Plavix aspirin and statin. Continue incentive spirometry. Early ambulation. Counseled regarding smoking cessation. Discontinue unnecessary catheters Continue pain management.Continue GI and DVT prophylaxis. Will follow. Time with Patient: Less than 30
[2020-01-15 14:12] LABS: Glucose,Whole Blood 337 mg/dL (75-99)
[2020-01-15 15:05] LABS: Glucose,Whole Blood 248 mg/dL (75-99)
[2020-01-15 16:20] LABS: Glucose,Whole Blood 149 mg/dL (75-99)
[2020-01-15 16:53] LABS: Glucose,Whole Blood 123 mg/dL (75-99)
[2020-01-15] MEDS: INSULIN REGULAR 100 UNIT in SODIUM CHLORIDE 0.9% 100 ML IV SCH (17:00)
[2020-01-15 17:52] LABS: Glucose,Whole Blood 108 mg/dL (75-99)
--- NOTE | 2020-01-15 18:05 | PN ---
PROGRESS NOTE 64-year-old white male who is status post CABG surgery, 3 way bypass, doing well. Discussed the case with Rudolph Martel, Nurse practitioner for Cardiology, who operated on him. He is on room air. He possibly will be going home tomorrow. He is doing well. Spirometry is good. Sinus rhythm. Hemoglobin is 10.2, temp 94, pulse 72-74, respiratory rate 20 to 28, blood pressure 110 to 129 over 60s to 70s. O2 96. Cardiovascular: S1-S2. Lungs show clear. Abdomen is soft. Hematology negative [place]. Psych fair mood and affect. Hemoglobin 10.2, white count 6.7. IMPRESSION: 1. Status post coronary artery bypass grafting, triple-vessel coronary artery disease stage 2-3. 2. Peripheral vascular disease. 3. Hypertension. 4. Diabetes mellitus. 5. Dyslipidemia. 6. Mild chronic obstructive pulmonary disease. Chest tube in his chest probably will be removed. Possibly go home tomorrow. Continue with PT/OT. ICU Progress note. MMODL / IJN: [id number] /
[2020-01-15 19:02] LABS: Glucose,Whole Blood 156 mg/dL (75-99)
[2020-01-15 20:12] LABS: Glucose,Whole Blood 220 mg/dL (75-99)
[2020-01-15 21:04] LABS: Glucose,Whole Blood 214 mg/dL (75-99)
[2020-01-15] MEDS: SENNOSIDES-DOCUSATE SODIUM 1 EACH TAB PO SCH (21:40)
[2020-01-15 22:23] LABS: Glucose,Whole Blood 211 mg/dL (75-99)
[2020-01-15 23:08] LABS: Glucose,Whole Blood 188 mg/dL (75-99)
[2020-01-16 01:08] LABS: Glucose,Whole Blood 74 mg/dL (75-99)
[2020-01-16 02:02] LABS: Glucose,Whole Blood 77 mg/dL (75-99)
[2020-01-16] MEDS: KETOROLAC 30 MG/ML 1 ML VIAL IVP SCH ×3 (03:00→13:04)
[2020-01-16] MEDS: HEPARIN SODIUM,PORCINE 5,000 UNIT/ML 1 ML VIAL SQ SCH ×2 (03:00→10:10)
[2020-01-16 03:19] LABS: Glucose,Whole Blood 128 mg/dL (75-99)
[2020-01-16 05:03] LABS: Glucose,Whole Blood 145 mg/dL (75-99)
[2020-01-16 05:19] LABS: Basophils % (A) 0 %; Eosinophils # (A) 0.2 k/uL (0-0.7); Eosinophils % (A) 2 %; HCT 26.6 % (39.0-53.0); HGB 9.1 gm/dL (13.0-17.5); Lymphocytes # (A) 1.3 k/uL (1.0-4.8); Lymphocytes % (A) 17 %; MCHC 34.1 g/dL (31.0-37.0); Monocytes # (A) 0.7 k/uL (0-1.0); Monocytes % (A) 9 %; Neutrophils # (A) 5.2 k/uL (1.3-7.7); Neutrophils % (A) 69 %; Platelet Count 130 k/uL (150-450); RBC 3.02 m/uL (4.30-5.90); RDW 12.9 % (11.5-15.5); WBC 7.5 k/uL (3.8-10.6)
[2020-01-16 05:29] LABS: African American GFR (CKD) >90 (>60 ml/min/1.73 sqM); Anion Gap 6 mmol/L; Blood Urea Nitrogen 16 mg/dL (9-20); Calcium 8.4 mg/dL (8.4-10.2); Carbon Dioxide 23 mmol/L (22-30); Chloride 105 mmol/L (98-107); Glucose 128 mg/dL (74-99); Non-African American GFR(CKD) >90 (>60 ml/min/1.73 sqM); Potassium 3.9 mmol/L (3.5-5.1); Sodium 134 mmol/L (137-145)
[2020-01-16] MEDS ORDERED: Potassium Replacement Protocol 1 EACH MISC MISCELLANE PRN (05:48)
[2020-01-16] MEDS ORDERED: POTASSIUM CHLORIDE ER 20 MEQ TAB.ER PO SCH (06:00)
[2020-01-16] MEDS ORDERED: FUROSEMIDE 10 MG/ML 2 ML VIAL IV ONE (07:20)
--- NOTE | 2020-01-16 07:25 | XR ---
EXAMINATION TYPE: XR chest 2V DATE OF EXAM: 01/16/2020 COMPARISON: 01/15/2020 TECHNIQUE: PA and lateral views submitted. HISTORY: Post CABG FINDINGS: Heart is stable in size and there is postsurgical changes with bilateral consolidation and small effu karyna. Mild Central coarsened interstitium. No pneumothorax. IMPRESSION: 1. Post CABG correlate for mild venous congestion with bilateral effusion greater on the right
[2020-01-16] MEDS ORDERED: metFORMIN 500 MG TAB PO SCH (07:30)
[2020-01-16] MEDS ORDERED: glipiZIDE 10 MG TAB PO SCH (08:00)
[2020-01-16] MEDS: IPRATROPIUM-ALBUTEROL 3 ML NEB INHALATION SCH ×2 (08:13→11:50)
[2020-01-16] MEDS: PANTOPRAZOLE 40 MG TABLET PO SCH (08:35)
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
[2020-01-16] MEDS ORDERED: LINAGLIPTIN 5 MG TABLET PO SCH (09:00)
[2020-01-16] MEDS: ASPIRIN 325 MG TAB PO SCH (10:11)
[2020-01-16] MEDS: CLOPIDOGREL 75 MG TAB PO SCH (10:12)
[2020-01-16] MEDS: guaiFENesin 600 MG TABLET.ER PO SCH (10:12)
[2020-01-16] MEDS: METOPROLOL TARTRATE 50 MG TAB PO SCH (10:12)
[2020-01-16] MEDS: ATORVASTATIN 40 MG TAB PO SCH (10:12)
--- NOTE | 2020-01-16 10:24 | PN ---
PROGRESS NOTE Mr. Liu is a 64-year-old male with a history of coronary artery disease who presented with evidence of severe progression of coronary artery disease, underwent coronary bypass grafting, he is doing well this morning. Continues to be in sinus mechanism. Denies any chest pain. Denies any dizziness or palpitation. Denies any nausea. He continues to be on aspirin once a day, Plavix 75 mg daily, Glucotrol 10 mg twice a day, Tradjenta, metformin 1 g twice a day, metoprolol 50 mg twice a day. PHYSICAL EXAMINATION: Blood pressure 112/50 with a heart rate in 60s. LUNGS: Pleural catheters at the bases with no wheezes. HEART: Regular rate and rhythm, S1, S2. No S3. No rub appreciated. ABDOMEN: Soft, nontender. EXTREMITIES: No edema. LAB DATA: Revealed a BUN and creatinine of 16 and 0.64, hemoglobin of 9.1. Chest x-ray revealed mild congestion with pleural effusion. IMPRESSION: 1. Status post coronary artery bypass grafting, stable. 2. History of tobacco use. 3. Peripheral vessel disease. 4. Severe mitral anulus calcification with mild to moderate mitral regurgitation. 5. Diabetes mellitus. 6. Hyperlipidemia. RECOMMENDATION: The patient activity will be increased. If he is stable, I would expect this should be able to be discharged home soon and follow up as an outpatient with Dr. Pandey. MMDEVIKAL / SHERYLN: [id number] /
[2020-01-16 12:19] LABS: Glucose,Whole Blood 140 mg/dL (75-99)
[2020-01-16 13:08] VITALS: BP 113/59; PULSE 71; RESP 27; TEMP 98
--- NOTE | 2020-01-16 13:19 | P.PN ---
Subjective Progress Note Date: 01/16/20 Principal diagnosis: Severe triple-vessel coronary artery disease, status post CABG 3. Postoperative day #3 Patient was reevaluated today on 01/14/20, patient was recently diagnosed with severe calcified triple-vessel coronary artery disease and unstable angina. He was also noted to have [id number] mitral valve stenosis and severe mitral annular calcification. Patient underwent off pump coronary artery bypass grafting 3, NICOLE to LAD, reverse saphenous vein graft to intermediate and the posterior lateral branch endovascular harvest of the left greater saphenous ve in, and ligation of the left atrial appendage. Postoperatively, I saw the patient for ventilator management, few hours after arrival to the ICU, patient was extubated uneventfully, and he tolerated the extubation well. Patient was cleared for his surgery a few days ago by Dr. Correa. Presently the patient is sitting in the recliner, he has some postsurgical chest discomfort, denies shortness of breath, in normal sinus rhythm, not requiring any inotropes or pressors. He is hemodynamically stable. Chest x-ray showed minimal atelectatic changes, and postoperative changes. Labs this morning were all reviewed including CBC, and basic metabolic profile, all normal Patient was reevaluated today on 01/15/20, remains in the ICU, on room air, asymptomatic, continues to have left-sided pleural chest tube and mediastinal chest tube. Chest x-ray showed mostly some atelectasis and nonspecific interstitial changes. Patient is doing well with incentive spirometry, pulling above 1500 mL. He is in sinus rhythm, asymptomatic. Hemoglobin is 10.2. CVP is 10.Draining thin serosanguineous drainage with mediastinal chest tube draining 90 mL output in the last 8 hours and 160 mL output in the last 24 hours, left pleural chest tube draining 80 mL output the last 8 hours, and 120 mL output last 24 hours. Patient was reevaluated today on 01/16/20, remains in the ICU, asymptomatic, on room air, denies any shortness of breath cough or wheezing. Patient is hemodynamically stable, in normal sinus rhythm, patient is ambulatory in the hallway without difficulty. Chest x-ray showed mostly postoperative changes, otherwise unremarkable. Objective - Vital Signs Vital signs: Vital Signs Temp 98 F 01/16/20 13:00 Pulse 71 01/16/20 13:00 Resp 27 H 01/16/20 13:10 BP 113/59 01/16/20 13:00 Pulse Ox 98 01/16/20 13:00 Intake & Output 01/15/20 01/16/20 01/16/20 18:59 06:59 18:59 Intake Total 389.944 132.067 Output Total 390 200 200 Balance -0.056 -67.933 -200 Weight 83.2 kg Intake: IV 53 63 Lactated Ringers 1,000 ml 50 60 @ 20 mls/hr IV .Q24H [facility] Rx#:[id number] Pressure bag 3 3 Intake, IV Titration 86.944 69.067 Amount Insulin Regular 100 unit 86.944 69.067 In Sodium Chloride 0.9% 100 ml @ Per Protocol IV .Q0M [facility] Rx#:[id number] Oral 250 Output: Chest Tube Drainage 40 Chest Tube Left 20 mediastinal 20 Urine 350 200 200 Other: Voiding Method Indwelling Catheter Indwelling Catheter Indwelling Catheter # Voids 1 200 200 ABP, PAP, CO, CI - Last Documented Arterial Blood Pressure 95/48 Pulmonary Artery Pressure 28/8 Cardiac Output 5.4 Cardiac Index 2.9 - Exam Physical Exam: Revealed a 64-year-old white male, pleasant, in no distress. On room air. Head: Atraumatic, normocephalic. HEENT:[Neck is supple.] [No neck masses.] [No thyromegaly.] [No JVD.] Chest: Symmetrical chest expansion, diminished breath sounds at the bases, chest tubes have been removed Cardiac Exam: [Normal S1 and S2, no S3 gallop, 2/6 systolic murmur thought the precordium. Abdomen: [Soft, nontender, no megaly, no rebound, no guarding, normal bowel sounds.] Extremities: [No clubbing, no edema, no cyanosis.] Neurological Exam: [No focal neurologic deficit.] Alert and oriented 3. Skin: is warm and dry with evidence of good perfusion. Anterior chest incision well approximated and covered with dry intact dressing. Left lower extremity EVH site well approximated. - Labs CBC & Chem 7: 01/16/20 04:56 01/16/20 04:56 Labs: Abnormal Lab Results - Last 24 Hours (Table) 01/15/20 01/15/20 01/15/20 Range/Units 14:01 15:04 16:18 RBC (4.30-5.90) m/uL Hgb (13.0-17.5) gm/dL Hct (39.0-53.0) % Plt Count (150-450) k/uL Sodium (137-145) mmol/L Creatinine (0.66-1.25) mg/dL Glucose (74-99) mg/dL POC Glucose (mg/dL) 337 H 248 H 149 H (75-99) mg/dL 01/15/20 01/15/20 01/15/20 Range/Units 16:52 17:51 19:00 RBC (4.30-5.90) m/uL Hgb (13.0-17.5) gm/dL Hct (39.0-53.0) % Plt Count (150-450) k/uL Sodium (137-145) mmol/L Creatinine (0.66-1.25) mg/dL Glucose (74-99) mg/dL POC Glucose (mg/dL) 123 H 108 H 156 H (75-99) mg/dL 01/15/20 01/15/20 01/15/20 Range/Units 20:10 21:02 22:21 RBC (4.30-5.90) m/uL Hgb (13.0-17.5) gm/dL Hct (39.0-53.0) % Plt Count (150-450) k/uL Sodium (137-145) mmol/L Creatinine (0.66-1.25) mg/dL Glucose (74-99) mg/dL POC Glucose (mg/dL) 220 H 214 H 211 H (75-99) mg/dL 01/15/20 01/16/20 01/16/20 Range/Units 23:06 01:07 03:18 RBC (4.30-5.90) m/uL Hgb (13.0-17.5) gm/dL Hct (39.0-53.0) % Plt Count (150-450) k/uL Sodium (137-145) mmol/L Creatinine (0.66-1.25) mg/dL Glucose (74-99) mg/dL POC Glucose (mg/dL) 188 H 74 L 128 H (75-99) mg/dL 01/16/20 01/16/20 01/16/20 Range/Units 04:56 04:56 05:01 RBC 3.02 L (4.30-5.90) m/uL Hgb 9.1 L (13.0-17.5) gm/dL Hct 26.6 L (39.0-53.0) % Plt Count 130 L (150-450) k/uL Sodium 134 L (137-145) mmol/L Creatinine 0.64 L (0.66-1.25) mg/dL Glucose 128 H (74-99) mg/dL POC Glucose (mg/dL) 145 H (75-99) mg/dL 01/16/20 Range/Units 12:17 RBC (4.30-5.90) m/uL Hgb (13.0-17.5) gm/dL Hct (39.0-53.0) % Plt Count (150-450) k/uL Sodium (137-145) mmol/L Creatinine (0.66-1.25) mg/dL Glucose (74-99) mg/dL POC Glucose (mg/dL) 140 H (75-99) mg/dL Assessment and Plan Assessment: Impression: Status post CABG for triple vessel coronary artery disease, postoperative day #3 Severe mitral calcification and moderate mitral regurgitation. Severe peripheral vessel occlusive disease. Hypertension. Dyslipidemia. Type 2 diabetes. Tobacco dependence syndrome. Mild COPD, FEV1 is 72%. Family history of premature coronary artery disease. Recommendation: Continue present supportive care measures. Continue beta blockers Plavix aspirin and statin. Continue incentive spirometry. Continue pain management. Possible discharge home today. Time with Patient: Less than 30
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
== END 2020-01-16 14:20 | disposition home health service (06) | DRG 234 ==
LOC: 1SOBS 09:31 → 3NCARDOBS 11:20 → OBSVTOIN 01-08 12:43 → 2SICU 01-13 15:41
PROVIDERS: ADMIT Family Medicine; ATTEND Family Medicine
PROC: B2111ZZ Fluoroscopy of Multiple Coronary Arteries using Low Osmolar Contrast (ICD-10-PCS; 2020-01-07)
PROC: B2151ZZ Fluoroscopy of Left Heart using Low Osmolar Contrast (ICD-10-PCS; 2020-01-07)
PROC: 4A023N7 Measurement of Cardiac Sampling and Pressure, Left Heart, Percutaneous Approach (ICD-10-PCS; 2020-01-07)
PROC: B34KZZZ Ultrasonography of Bilateral Upper Extremity Arteries (ICD-10-PCS; 2020-01-07)
PROC: B44HZZZ Ultrasonography of Bilateral Lower Extremity Arteries (ICD-10-PCS; 2020-01-07)
PROC: B24BZZ4 Ultrasonography of Heart with Aorta, Transesophageal (ICD-10-PCS; 2020-01-08)
PROC: 02100Z9 Bypass Coronary Artery, One Artery from Left Internal Mammary, Open Approach (ICD-10-PCS; principal; 2020-01-13 12:00)
PROC: 06BQ4ZZ Excision of Left Saphenous Vein, Percutaneous Endoscopic Approach (ICD-10-PCS; principal; 2020-01-13 12:00)
PROC: 021109W Bypass Coronary Artery, Two Arteries from Aorta with Autologous Venous Tissue, Open Approach (ICD-10-PCS; principal; 2020-01-13 12:00)
PROC: 02L70CK Occlusion of Left Atrial Appendage with Extraluminal Device, Open Approach (ICD-10-PCS; principal; 2020-01-13 12:00)
DX: I25.110 Atherosclerotic heart disease of native coronary artery with unstable angina pectoris (principal); D62 Acute posthemorrhagic anemia; Z20.828 Contact with and (suspected) exposure to other viral communicable diseases; D69.6 Thrombocytopenia, unspecified; I11.9 Hypertensive heart disease without heart failure; I25.82 Chronic total occlusion of coronary artery; E11.51 Type 2 diabetes mellitus with diabetic peripheral angiopathy without gangrene; J43.9 Emphysema, unspecified; I70.0 Atherosclerosis of aorta; F41.9 Anxiety disorder, unspecified; E78.5 Hyperlipidemia, unspecified; I25.84 Coronary atherosclerosis due to calcified coronary lesion; F17.210 Nicotine dependence, cigarettes, uncomplicated; M19.90 Unspecified osteoarthritis, unspecified site; R91.8 Other nonspecific abnormal finding of lung field; M41.9 Scoliosis, unspecified; I65.23 Occlusion and stenosis of bilateral carotid arteries; I08.3 Combined rheumatic disorders of mitral, aortic and tricuspid valves; I25.2 Old myocardial infarction; Z71.6 Tobacco abuse counseling; Z71.3 Dietary counseling and surveillance; Z79.82 Long term (current) use of aspirin; Z79.84 Long term (current) use of oral hypoglycemic drugs; Z79.899 Other long term (current) drug therapy; Z96.642 Presence of left artificial hip joint; Z98.890 Other specified postprocedural states; Z95.5 Presence of coronary angioplasty implant and graft; Z87.438 Personal history of other diseases of male genital organs; Z90.49 Acquired absence of other specified parts of digestive tract; Z80.0 Family history of malignant neoplasm of digestive organs; Z87.01 Personal history of pneumonia (recurrent); Z82.49 Family history of ischemic heart disease and other diseases of the circulatory system
CPT/HCPCS: 71045; 71046; 80048; 80053; 80061; 80074; 81003; 82330; 82805; 83036; 83735; 84443; 84484; 85025; 85520; 85610; 85730; 86850; 86891; 86900; 86901; 86920; 87070; 93005; 93306; 93308; 93312; 93320; 93325; 93458; 93880; 93923; 93930; 93970; 94002; 94150; 94640

== ENCOUNTER 2021-01-12 18:31 | Inpatient (IN) | payer MEDICARE, OTHER ==
[2021-01-12] MEDS ORDERED: PANTOPRAZOLE 40 MG/10 ML VIAL IVP STA (19:13)
[2021-01-12] MEDS ORDERED: SODIUM CHLORIDE 0.9% 1,000 ML IV STA (19:13)
[2021-01-12 20:03] LABS: Basophils % (A) 1 %; Eosinophils # (A) 0.4 k/uL (0-0.7); Eosinophils % (A) 6 %; HCT 41.7 % (39.0-53.0); HGB 14.7 gm/dL (13.0-17.5); Lymphocytes # (A) 1.7 k/uL (1.0-4.8); Lymphocytes % (A) 27 %; MCH 30.7 pg (25.0-35.0); MCHC 35.2 g/dL (31.0-37.0); MCV 87.3 fL (80.0-100.0); Mean Platelet Volume 9.1; Monocytes # (A) 0.5 k/uL (0-1.0); Monocytes % (A) 8 %; Neutrophils # (A) 3.5 k/uL (1.3-7.7); Neutrophils % (A) 56 %; Platelet Count 193 k/uL (150-450); RBC 4.78 m/uL (4.30-5.90); RDW 12.6 % (11.5-15.5); WBC 6.2 k/uL (3.8-10.6)
[2021-01-12 20:07] LABS: Appearance,Urine Clear (Clear); Bilirubin,Urine Negative (Negative); Blood,Urine Negative (Negative); Color,Urine Light Yellow; Glucose,Urine (UA) 4+ (Negative); Ketones,Urine Negative (Negative); Leukocyte Esterase,Urine Negative (Negative); Nitrite,Urine Negative (Negative); PH, Urine 6.5 (5.0-8.0); Protein,Urine Negative (Negative); Specific Gravity,Urine 1.032 (1.001-1.035); Urobilinogen,Urine <2.0 mg/dL (<2.0)
[2021-01-12 20:18] LABS: ALT 61 U/L (4-49); AST 108 U/L (17-59); African American GFR (CKD) >90 (>60 ml/min/1.73 sqM); Albumin 3.8 g/dL (3.5-5.0); Alkaline Phosphatase 82 U/L (38-126); Anion Gap 8 mmol/L; Blood Urea Nitrogen 6 mg/dL (9-20); Calcium 9.1 mg/dL (8.4-10.2); Carbon Dioxide 27 mmol/L (22-30); Chloride 96 mmol/L (98-107); Glucose 423 mg/dL (74-99); Lipase 883 U/L (23-300); Non-African American GFR(CKD) >90 (>60 ml/min/1.73 sqM); Potassium 3.8 mmol/L (3.5-5.1); Sodium 131 mmol/L (137-145); Total Bilirubin 0.3 mg/dL (0.2-1.3); Total Protein 6.2 g/dL (6.3-8.2)
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
[2021-01-12] MEDS ORDERED: NALOXONE 0.4 MG/ML 1 ML VIAL IV PRN (21:14)
[2021-01-12] MEDS ORDERED: HYDROmorphone 0.5 MG/0.5 ML SYRINGE IVP PRN (21:14)
[2021-01-12] MEDS ORDERED: MORPHINE SULFATE 4 MG/ML SYRINGE IV PRN (21:14)
[2021-01-12] MEDS: SODIUM CHLORIDE 0.9% 1,000 ML IV SCH (21:32)
--- NOTE | 2021-01-12 22:01 | CT ---
EXAMINATION TYPE: CT abdomen pelvis w con DATE OF EXAM: 01/12/2021 COMPARISON: None available. HISTORY: periumbilical and epigastric tendenress CT DLP: 984.2 mGycm Automated exposure control for dose reduction was used. TECHNIQUE: Helical acquisition of images was performed from the lung bases through the pelvis. CONTRAST: Performed without Oral Contrast and with IV Contrast, patient injected with 100 mL of Isovue 300. FINDINGS: LUNG BASES: Mild to moderate hazy opacity, compatible with atelectasis. LIVER/GB: No significant abnormality is appreciated. PANCREAS: No significant abnormality is seen. SPLEEN: No significant abnormality is seen. ADRENALS: No significant abnormality is seen. KIDNEYS: No significant abnormality is seen. FREE AIR: No free air is visualized. RETROPERITONEAL ADENOPATHY: None visualized REPRODUCTIVE ORGANS: No significant abnormality is seen URINARY BLADDER: No significant abnormality is seen. PELVIC ADENOPATHY: None visualized. OSSEOUS STRUCTURES: No acute abnormality is seen. Mild to moderate lumbar spondylosis with dextrocon vex scoliosis. Right hip arthroplasty. BOWEL: Small hiatal hernia. No bowel obstruction, free air or fluid. No evidence of acute appendicit is. OTHER: Advanced atherosclerotic disease. Suggestion of hydrocele. IMPRESSION: Suggestion of hydrocele. OTHERWISE NO DEFINITE ACUTE ABNORMALITY. BIBASILAR ATELECTASIS. DEVELOPING INFILTRATE IS BETTER EXCLUDED CLINICALLY. CHRONIC FINDINGS ABOVE.
[2021-01-13 07:02] LABS: Glucose,Whole Blood 356 mg/dL (75-99)
[2021-01-13] MEDS: INSULIN ASPART (NovoLOG) 100 UNIT/ML VIAL SQ SCH ×4 (07:26→20:27)
[2021-01-13] MEDS: HYDROcodone/APAP 10-325MG 1 EACH TAB PO SCH ×4 (07:27→22:30)
[2021-01-13] MEDS: FUROSEMIDE 20 MG TAB PO SCH (07:27)
[2021-01-13] MEDS: ATORVASTATIN 80 MG TAB PO SCH (07:27)
[2021-01-13] MEDS: metFORMIN 500 MG TAB PO SCH ×2 (07:27→20:25)
[2021-01-13] MEDS: ALPRAZolam 1 MG TAB PO SCH ×2 (07:32→20:26)
[2021-01-13] MEDS: SYMBICORT 80-4.5 MCG INHALER INHALATION SCH ×2 (09:05→19:09)
[2021-01-13] MEDS: IPRATROPIUM 0.5 MG/2.5 ML NEBU INHALATION SCH ×4 (09:05→19:09)
[2021-01-13 10:25] LABS: Chol/HDL Ratio 2.98
[2021-01-13 11:11] LABS: Glucose,Whole Blood 286 mg/dL (75-99)
[2021-01-13] MEDS: SODIUM CHLORIDE 0.9% 1,000 ML IV SCH (12:03)
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
[2021-01-13 16:24] LABS: Glucose,Whole Blood 162 mg/dL (75-99)
[2021-01-13 20:27] LABS: Glucose,Whole Blood 134 mg/dL (75-99)
--- NOTE | 2021-01-14 01:38 | HP ---
HISTORY AND PHYSICAL 65-year-old white male, known history of diabetes mellitus, coronary artery disease with stent, myocardial infarction, hypertension, nicotine addiction, COPD, prior history of cholecystectomy several years ago, came to the emergency room with intermittent epigastric abdominal pain. Pain became worse after he ate sausage. Pain is 9 out of 10 on admission. Does not radiate. Denies history of alcohol use. No vomiting, fever, chills or sweats. CT abdomen and pelvis showed acute pancreatitis. Has had a lot of weight loss. He had a lot of abdominal pains prior to starting his diabetic medicines. Never has had pancreatitis in the past, wants to rule out cholecystitis. PAST MEDICAL HISTORY: See old chart. SURGICAL HISTORY: See old chart. MEDS: See list. ALLERGIES: See list. No illicit drug use. REVIEW OF SYSTEMS: Fourteen-point review of systems negative except for lots of weight loss, abdominal pain, otherwise negative. PHYSICAL EXAMINATION: Vital signs stable. Afebrile. Cardiovascular S1, S2. Lungs: Mild wheeze x4. HEMATOLOGY: Negative Homans. PSYCH: Fair mood and affect. NEUROLOGIC: Alert and orient x3. GI is increased bowel sounds x4. Diffuse tenderness to palpation throughout the abdomen. OPHTHALMOLOGIC: No scleral icterus. LABORATORY DATA: Triglycerides 125. White blood count 6.2, creatinine 0.58, glucose 286, AST 108, ALT 61 ASSESSMENT: 1. Acute pancreatitis. 2. History of cholecystectomy. N.p.o., IV fluids. Repeat labs in the morning. Recommendations for weight loss. A possible colonoscopy with to be done either in the hospital or as an outpatient. Prognosis guarded. MMODL / IJN: [id number] /
[2021-01-14 06:41] LABS: Glucose,Whole Blood 189 mg/dL (75-99)
[2021-01-14] MEDS: ALPRAZolam 1 MG TAB PO SCH (07:09)
[2021-01-14] MEDS: ATORVASTATIN 80 MG TAB PO SCH (07:09)
[2021-01-14] MEDS: metFORMIN 500 MG TAB PO SCH (07:10)
[2021-01-14] MEDS: HYDROcodone/APAP 10-325MG 1 EACH TAB PO SCH ×3 (07:10→17:15)
[2021-01-14] MEDS: FUROSEMIDE 20 MG TAB PO SCH (07:10)
[2021-01-14] MEDS: SODIUM CHLORIDE 0.9% 1,000 ML IV SCH ×2 (07:11→11:57)
[2021-01-14] MEDS: INSULIN ASPART (NovoLOG) 100 UNIT/ML VIAL SQ SCH ×3 (07:12→17:20)
[2021-01-14] MEDS: IPRATROPIUM 0.5 MG/2.5 ML NEBU INHALATION SCH ×3 (07:41→16:24)
[2021-01-14] MEDS: SYMBICORT 80-4.5 MCG INHALER INHALATION SCH (07:41)
[2021-01-14 09:36] LABS: Basophils # (A) 0.05 X 10*3/uL (0.00-0.10); Basophils % (A) 0.9 %; Eosinophils # (A) 0.39 X 10*3/uL (0.04-0.35); Eosinophils % (A) 7.1 %; HCT 38.7 % (39.6-50.0); HGB 13.6 g/dL (13.0-17.0); Lymphocytes # (A) 1.57 X 10*3/uL (0.90-5.00); Lymphocytes % (A) 28.8 %; MCH 30.8 pg (27.0-32.0); MCHC 35.1 g/dL (32.0-37.0); MCV 87.6 fL (80.0-97.0); Mean Platelet Volume 11.5 fL (9.5-12.2); Monocytes % (A) 9.2 %; Neutrophils # (A) 2.94 X 10*3/uL (1.80-7.70); Neutrophils % (A) 53.8 %; Platelet Count 160 X 10*3/uL (140-440); RBC 4.42 X 10*6/uL (4.40-5.60); RDW 12.6 % (11.5-14.5); WBC 5.46 X 10*3/uL (4.50-10.00)
[2021-01-14 11:36] LABS: Glucose,Whole Blood 207 mg/dL (75-99)
--- NOTE | 2021-01-14 11:40 | P.PN ---
<Maria Del Carmen Olson - Last Filed: 01/14/21 11:36> Subjective Progress Note Date: 01/14/21 CHIEF COMPLAINT: Epigastric abdominal pain HISTORY OF PRESENT ILLNESS: Patient is being treated for an acute pancreatitis. Patient reports that his pain is gone. His lipase has normalized. LFTs are pending. He is currently on nothing by mouth. Afebrile. Cardiology on consult for bradycardia PHYSICAL EXAM: VITAL SIGNS: Reviewed. GENERAL: Well-developed in no acute distress. HEENT: No sclera icterus. Extraocular movements grossly intact. Moist buccal mucosa. Head is atraumatic, normocephalic. ABDOMEN: Soft. Nondistended. Nontender. NEUROLOGIC: Alert and oriented. Cranial nerves II through XII grossly intact. ASSESSMENT: 1. Acute pancreatitis 2. Chronic pancreatitis 3. History of cholecystectomy PLAN: -Advance diet to clear liquids -Encouraged patient to increase activity level -Continue pain medication as needed Physician Honing Machine Operator Semiautomatic note has been reviewed by physician. Signing provider agrees with the documented findings, assessment, and plan of care. Objective - Vital Signs Vital signs: Vital Signs Temp 97.6 F 01/14/21 07:03 Pulse 62 01/14/21 11:34 Resp 18 01/14/21 08:00 BP 124/67 01/14/21 07:03 Pulse Ox 96 01/14/21 07:03 Intake & Output 01/13/21 01/14/21 01/14/21 18:59 06:59 18:59 Intake Total 0 Balance 0 Weight 63.503 kg Intake: Oral 0 Other: # Voids 1 1 - Labs CBC & Chem 7: 01/14/21 05:35 01/12/21 19:27 Labs: Abnormal Lab Results - Last 24 Hours (Table) 01/13/21 01/13/21 01/14/21 Range/Units 16:19 20:25 05:35 Hct 38.7 L (39.6-50.0) % Eosinophils # 0.39 H (0.04-0.35) X 10*3/uL POC Glucose (mg/dL) 162 H 134 H (75-99) mg/dL 01/14/21 Range/Units 06:39 Hct (39.6-50.0) % Eosinophils # (0.04-0.35) X 10*3/uL POC Glucose (mg/dL) 189 H (75-99) mg/dL <Tristan Kenney - Last Filed: 01/14/21 16:07> Subjective As above. Patient's pain has resolved. Labs are improved. Etiology for pancreatitis unclear but evidence of chronic pancreatitis on CAT scan. Gradually advance diet. May discharge if tolerates. Objective - Vital Signs Vital signs: Vital Signs Temp 97.5 F L 01/14/21 13:14 Pulse 69 01/14/21 13:14 Resp 16 01/14/21 13:14 BP 111/63 01/14/21 13:14 Pulse Ox 99 01/14/21 13:14 Intake & Output 01/13/21 01/14/21 01/14/21 18:59 06:59 18:59 Intake Total 0 Balance 0 Weight 63.503 kg Intake: Oral 0 Other: # Voids 1 1 - Labs CBC & Chem 7: 01/14/21 05:35 01/14/21 05:35 Labs: Abnormal Lab Results - Last 24 Hours (Table) 01/13/21 01/13/21 01/14/21 Range/Units 16:19 20:25 05:35 Hct 38.7 L (39.6-50.0) % Eosinophils # 0.39 H (0.04-0.35) X 10*3/uL BUN (9.0-27.0) mg/dL BUN/Creatinine Ratio (12.00-20.00) Ratio Glucose (70-110) mg/dL POC Glucose (mg/dL) 162 H 134 H (75-99) mg/dL Calcium (8.7-10.3) mg/dL Total Protein (6.2-8.2) g/dL Albumin (3.80-4.90) g/dL 01/14/21 01/14/21 01/14/21 Range/Units 05:35 06:39 11:35 Hct (39.6-50.0) % Eosinophils # (0.04-0.35) X 10*3/uL BUN 7.0 L (9.0-27.0) mg/dL BUN/Creatinine Ratio 10.00 L (12.00-20.00) Ratio Glucose 199 H (70-110) mg/dL POC Glucose (mg/dL) 189 H 207 H (75-99) mg/dL Calcium 8.5 L (8.7-10.3) mg/dL Total Protein 5.1 L (6.2-8.2) g/dL Albumin 3.30 L (3.80-4.90) g/dL
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
[2021-01-14 13:46] VITALS: BP 111/63; RESP 16; TEMP 97.5
[2021-01-14 15:04] LABS: African American GFR (CKD) 115.6 (60.0-200.0); Albumin 3.3 g/dL (3.80-4.90); Albumin/Globulin Ratio 1.83 (1.60-3.17); Anion Gap 9.7 mmol/L (4.00-12.00); Calcium 8.5 mg/dL (8.7-10.3); Carbon Dioxide 25.3 mmol/L (21.6-31.8); Globulin 1.8 g/dL (1.6-3.3); Non-African American GFR(CKD) 99.7 (60.0-200.0); Potassium 4.2 mmol/L (3.5-5.5); Total Bilirubin 0.5 mg/dL (0.3-1.2); Total Protein 5.1 g/dL (6.2-8.2)
[2021-01-14 16:36] LABS: Glucose,Whole Blood 262 mg/dL (75-99)
[2021-01-14 16:38] VITALS: PULSE 66
[2021-01-14] MEDS ORDERED: glipiZIDE 5 MG TAB PO SCH (17:30)
[2021-01-15] MEDS ORDERED: PIOGLITAZONE 30 MG TAB PO SCH (09:00)
[2021-01-15] MEDS ORDERED: ASPIRIN 81 MG PO SCH (09:00)
== END 2021-01-14 19:20 | disposition home or self-care (01) | DRG 440 ==
LOC: EC 18:31 → 4SSUR 21:06
PROVIDERS: ADMIT Family Medicine; ATTEND Family Medicine
DX: K85.90 Acute pancreatitis without necrosis or infection, unspecified (principal); E11.65 Type 2 diabetes mellitus with hyperglycemia; E78.5 Hyperlipidemia, unspecified; F17.200 Nicotine dependence, unspecified, uncomplicated; I10 Essential (primary) hypertension; I25.10 Atherosclerotic heart disease of native coronary artery without angina pectoris; I25.2 Old myocardial infarction; J44.9 Chronic obstructive pulmonary disease, unspecified; Z79.84 Long term (current) use of oral hypoglycemic drugs; Z79.899 Other long term (current) drug therapy; Z80.0 Family history of malignant neoplasm of digestive organs; Z82.49 Family history of ischemic heart disease and other diseases of the circulatory system; Z87.01 Personal history of pneumonia (recurrent); Z90.49 Acquired absence of other specified parts of digestive tract; Z95.1 Presence of aortocoronary bypass graft; Z95.5 Presence of coronary angioplasty implant and graft; M19.90 Unspecified osteoarthritis, unspecified site
CPT/HCPCS: 36415; 74177; 80053; 80061; 81003; 83690; 84484; 85025; 93005; 94640; 96361; 96374; 99284

== ENCOUNTER → 2021-05-04 | Outpatient (CLI) | payer MEDICARE, OTHER ==
--- NOTE | 2021-05-04 16:28 | CT ---
EXAMINATION TYPE: CT cervical spine wo con DATE OF EXAM: 05/04/2021 COMPARISON: NONE HISTORY: Cervical neuritis. Pain down left shoulder. CT DLP: 472.8 mGycm. Automated Exposure Control for Dose Reduction was Utilized. TECHNIQUE: CT scan of the cervical spine is obtained without contrast, axial images are obtained, sa gittal and coronal reformatted images are also reviewed. FINDINGS: Coronal images show slight levoconvex scoliotic curvature centered upper thoracic spine. Th ere is slight grade 1 retrolisthesis C6 on C7. Vertebral body heights are maintained. Moderate to sev ere narrowing with moderate anterior spurring C5-C6 level. Moderate narrowing and spurring C6-C7 leve l. No large disc herniation on sagittal images. Axial images at C2-C3 level show uncovertebral facet degenerative changes greater on the left causing moderate left-sided neural foraminal narrowing. Axial images at C3-C4 level show uncovertebral facet degenerative changes greater on the left causing mild to moderate left greater than right neural foraminal narrowing. Axial images at C4-C5 level shows some uncovertebral facet degenerative changes bilaterally without s ignificant neural foraminal narrowing. Axial images at C5-C6 level show uncovertebral facet degenerative changes causing moderate bilateral neural foraminal narrowing. Axial images at C6-C7 level show right paracentral spur disc complex effacing anterolateral thecal sa c, there is moderate right-sided neural foraminal narrowing. Axial images at C7-T1 level appear within normal limits. Lung apices show no pneumothorax. Thyroid gland is normal in size. Moderate to severe calcified plaqu e distal internal carotid arteries extends through the carotid bulbs bilaterally. IMPRESSION: Multilevel degenerative changes greatest at C5-C6 and C6-C7 levels as detailed above.
== END | disposition home or self-care (01) ==
LOC: RADCTMAIN 15:34
PROVIDERS: ATTEND Family Medicine
DX: M50.323 Other cervical disc degeneration at C6-C7 level (principal)
CPT/HCPCS: 72125

== ENCOUNTER 2022-05-16 11:18 | Emergency (ER) | payer MEDICARE ==
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
[2022-05-16 11:33] LABS: Glucose,Whole Blood 309 mg/dL (70-110)
--- NOTE | 2022-05-16 11:41 | CT ---
EXAMINATION TYPE: CT brain wo con for TPA DATE OF EXAM: 05/16/2022 COMPARISON: None HISTORY: 1147.6 CT DLP: 1147.[address] of the brain was performed. The ventricles, basal cisterns and sulci overlying the cerebral convexities demonstrate mild enlargem ent. There is no evidence for intracranial hemorrhage or sulcal effacement. There is decreased attenuation about the periventricular white matter and deep white matter of both c erebral hemispheres, compatible with chronic small vessel ischemia. Differential diagnosis does inclu de demyelination. No mass effects are seen.No midline shift. Osseous calvarium is intact. If symptoms persist consider MRI. IMPRESSION: 1. Age related atrophic and chronic small vessel ischemic change without acute intracranial process s een at this time.
[2022-05-16 11:47] LABS: ALT 20 U/L (4-49); AST 58 U/L (17-59); African American GFR (CKD) >90 (>60 ml/min/1.73 sqM); Albumin 3.7 g/dL (3.5-5.0); Alkaline Phosphatase 74 U/L (38-126); Anion Gap 5 mmol/L; Blood Urea Nitrogen 26 mg/dL (9-20); Calcium 9.1 mg/dL (8.4-10.2); Carbon Dioxide 33 mmol/L (22-30); Chloride 96 mmol/L (98-107); Glucose 316 mg/dL (74-99); Non-African American GFR(CKD) >90 (>60 ml/min/1.73 sqM); Potassium 4.2 mmol/L (3.5-5.1); Sodium 134 mmol/L (137-145); Total Bilirubin 0.7 mg/dL (0.2-1.3); Total Protein 6.4 g/dL (6.3-8.2)
[2022-05-16 11:48] LABS: Basophils # (A) 0.1 k/uL (0-0.2); Basophils % (A) 0 %; Eosinophils # (A) 0.1 k/uL (0-0.7); Eosinophils % (A) 1 %; HGB 14.9 gm/dL (13.0-17.5); Lymphocytes # (A) 1.6 k/uL (1.0-4.8); Lymphocytes % (A) 8 %; MCH 30.4 pg (25.0-35.0); MCHC 35.4 g/dL (31.0-37.0); MCV 85.8 fL (80.0-100.0); Mean Platelet Volume 7.7; Monocytes # (A) 1.1 k/uL (0-1.0); Monocytes % (A) 6 %; Neutrophils # (A) 16.1 k/uL (1.3-7.7); Neutrophils % (A) 84 %; Platelet Count 291 k/uL (150-450); RBC 4.89 m/uL (4.30-5.90); RDW 14.3 % (11.5-15.5); WBC 19.3 k/uL (3.8-10.6)
[2022-05-16 11:53] LABS: Prothrombin Time 10.4 sec (9.0-12.0)
--- NOTE | 2022-05-16 12:03 | CT ---
EXAMINATION TYPE: CT angio head neck DATE OF EXAM: 05/16/2022 COMPARISON: None HISTORY: RIGHT SIDE WEAKNESS, SLURRED SPEECH, AMS CT DLP: 582.1 mGycm CONTRAST: Performed with IV Contrast, patient injected with 65 mL of Isovue 370. Combination Contrast CTA cervical carotids and [place] CTA cervical carotids with 3-D recons truction Contrast CTA of the cervical carotids was performed 3-D reconstruction imaging obtained at a separate workstation. Right carotid system: Mild plaque is seen of the right common carotid artery. There is moderate plaq ue also noted at the carotid bulb and proximal ICA. Estimated diameter reduction of 65%. ECA is pat ent. Right vertebral artery appears unremarkable. Left carotid system: Moderate soft plaque is seen of the left common carotid artery. Estimated diame ter reduction Left common carotid artery of 90%. There is moderate symmetric plaque also noted at the carotid bulb and proximal ICA. Estimated diameter reduction is 85-90%. ECA is patent. Left vertebr al artery appears unremarkable. IMPRESSION: 1. 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 2. Stenosis left carotid bulb and proximal left ICA estimated at 85-90%. CTA [place] with 3-D reconstruction Contrast CTA of the [place] was performed 3-D reconstruction imaging obtained at a separate workstation. Vertebrobasilar system as well as intracranial portions are patent. Decreased left-sided vascular de nsity MCA branch vessels. I do not see evidence for sizable aneurysm or vascular malformation. Plea se note MRI provides greater sensitivity and specificity. Visualized brain appears grossly unremarka ble. IMPRESSION: 1. Decreased left-sided vascular density MCA branch vessels. NASCET criteria was used in interpretation of this exam?
[2022-05-16 12:07] LABS: Partial Thromboplastin Time 21.8 sec (22.0-30.0)
--- NOTE | 2022-05-16 12:08 | XR ---
EXAMINATION TYPE: XR chest 1V portable DATE OF EXAM: 05/16/2022 HISTORY: Shortness of breath. COMPARISON: 01/16/2020 TECHNIQUE: Single view of the chest is submitted. FINDINGS: Demonstrated are scattered senescent parenchymal change. Cardiomegaly with pulmonary venous congestion and interstitial edema. Sternotomy wires in place as we ll as left atrial appendage clip. Hilar and mediastinal structures are within normal limits. Degenerative changes are seen of the dorsal spine. IMPRESSION: 1. Congestive failure with interstitial edema.
[2022-05-16] MEDS ORDERED: TICAGRELOR 90 MG TAB PO STA (12:23)
[2022-05-16] MEDS ORDERED: ATORVASTATIN 80 MG TAB PO STA (12:23)
[2022-05-16] MEDS ORDERED: ASPIRIN 81 MG PO STA (12:23)
[2022-05-16] MEDS ORDERED: SODIUM CHLORIDE 0.9% 1,000 ML IV STA ×2 (12:23→14:31)
--- NOTE | 2022-05-16 13:59 | XR ---
EXAMINATION TYPE: XR chest 1V confirm line [facility] DATE OF EXAM: 05/16/2022 COMPARISON: Chest x-ray from earlier today. HISTORY: NG tube placement. TECHNIQUE: Single AP portable follow-up right view of the chest is obtained. FINDINGS: The new nasogastric tube projects below the diaphragm. Stable right-sided PICC line. Overlying sternal wires and left atrial appendage clip redemonstrated. Persistent low lung volumes al carlos enrique with marker central vascular congestion and cardiomegaly are redemonstrated. No significant garcia e in the findings consistent with CHF exacerbation. The osseous structures are intact. IMPRESSION: As above.
[2022-05-16 14:54] VITALS: BP 167/70; PULSE 67; RESP 18; TEMP 97.5
== END 2022-05-16 14:52 | disposition other institution (70) ==
LOC: SUPCPDRO 11:18 → EC 11:18
DX: I67.9 Cerebrovascular disease, unspecified (principal); I11.0 Hypertensive heart disease with heart failure; I25.10 Atherosclerotic heart disease of native coronary artery without angina pectoris; I25.2 Old myocardial infarction; E11.9 Type 2 diabetes mellitus without complications; E78.5 Hyperlipidemia, unspecified; J44.9 Chronic obstructive pulmonary disease, unspecified; F17.200 Nicotine dependence, unspecified, uncomplicated; Z88.1 Allergy status to other antibiotic agents; Z88.2 Allergy status to sulfonamides; Z79.4 Long term (current) use of insulin; Z79.84 Long term (current) use of oral hypoglycemic drugs; Z79.82 Long term (current) use of aspirin
CPT/HCPCS: 99291 ×2; 96360 ×2; 96361 ×2; 36415; 93005; 83880; 80053; 85025; 85610; 85730; 87635; 71045; 70496; 70450; 70498; Q9967

== ENCOUNTER → 2023-10-16 | Outpatient (CLI) | payer MEDICARE, OTHER ==
[2023-10-16 13:31] LABS: African American GFR (CKD) >90 (>60 ml/min/1.73 sqM); Blood Urea Nitrogen 15 mg/dL (9-20); Non-African American GFR(CKD) >90 (>60 ml/min/1.73 sqM)
--- NOTE | 2023-10-16 14:02 | CT ---
EXAMINATION TYPE: CT chest w con DATE OF EXAM: 10/16/2023 COMPARISON: 08/22/2016 HISTORY: f/u nodules CT DLP: 359.4 mGycm Automated exposure control for dose reduction was used. CONTRAST: CT scan of the chest is performed with IV Contrast, patient injected with 100 mL of Isovue 300. FINDINGS: LUNGS: Left upper lobe pulmonary nodule image 29 measures 5.9 mm versus 7.2 mm previously. 2 right up per lobe pulmonary nodules identified both on image 30 measuring 4 mm and 6.2 mm respectively unchang ed from 2017. The nodules seen. No evidence of infiltrate or volume loss. MEDIASTINUM: Right hilar adenopathy is redemonstrated. Lymph nodes measure up to 2.1 cm. A 1.3 cm lef t hilar adenopathy. No pericardial effusion is seen. Thoracic aorta is of normal caliber. The heart is not enlarged. UPPER ABDOMEN: No significant abnormality appreciated. OTHER: No additional significant abnormality is seen. IMPRESSION: 1. Stable scattered pulmonary nodularity as discussed above. This is unchanged dating back to 2017. 2. Stable hilar adenopathy is of uncertain etiology.
== END | disposition home or self-care (01) ==
LOC: RADCTMAIN 12:49
PROVIDERS: ATTEND Family Medicine
DX: R91.8 Other nonspecific abnormal finding of lung field (principal); R59.0 Localized enlarged lymph nodes
CPT/HCPCS: 82565; 84520; 71260; 36415; Q9967

== ENCOUNTER 2023-11-03 04:13 | Emergency (ER) | payer MEDICARE, OTHER ==
[2023-11-03] MEDS: HYDROcodone/APAP 7.5-325MG 1 EACH TAB PO ONE (05:55)
--- NOTE | 2023-11-03 05:58 | XR ---
EXAMINATION TYPE: XR femur LT DATE OF EXAM: 11/03/2023 CLINICAL HISTORY: Leg pain TECHNIQUE: Two views of the left femur are obtained. COMPARISON: None FINDINGS: There is no acute fracture or dislocation seen in the left femur. Metallic artifact from t otal left hip arthroplasty is identified and appears satisfactory in position. Mild to moderate trico mpartment joint space loss in the left knee is seen. Meniscal calcification laterally is suspected. S evere arterial vascular calcification is noted in the posterior medial soft tissue. IMPRESSION: As above. No acute findings are evident.
[2023-11-03 06:07] LABS: Basophils % (A) 1 %; Eosinophils # (A) 0.4 k/uL (0-0.7); Eosinophils % (A) 7 %; HCT 39.6 % (39.0-53.0); HGB 13.2 gm/dL (13.0-17.5); Lymphocytes % (A) 16 %; MCH 28.5 pg (25.0-35.0); MCHC 33.4 g/dL (31.0-37.0); MCV 85.4 fL (80.0-100.0); Mean Platelet Volume 9.4; Monocytes # (A) 0.3 k/uL (0-1.0); Monocytes % (A) 5 %; Neutrophils # (A) 4.5 k/uL (1.3-7.7); Neutrophils % (A) 71 %; Platelet Count 126 k/uL (150-450); RBC 4.64 m/uL (4.30-5.90); RDW 12.7 % (11.5-15.5); WBC 6.3 k/uL (3.8-10.6)
[2023-11-03 06:24] LABS: African American GFR (CKD) 82 (>60 ml/min/1.73 sqM); Anion Gap 7 mmol/L; Blood Urea Nitrogen 23 mg/dL (9-20); C Reactive Protein <0.5 mg/dL (<1.0); Calcium 8.7 mg/dL (8.4-10.2); Carbon Dioxide 24 mmol/L (22-30); Chloride 105 mmol/L (98-107); Glucose 280 mg/dL (74-99); Non-African American GFR(CKD) 71 (>60 ml/min/1.73 sqM); Potassium 4.3 mmol/L (3.5-5.1); Sodium 136 mmol/L (137-145)
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
[2023-11-03 07:59] VITALS: BP 177/95; PULSE 88; RESP 20; TEMP 97.9
== END 2023-11-03 06:58 | disposition home or self-care (01) ==
LOC: EC 04:13
DX: M25.552 Pain in left hip (principal); F17.200 Nicotine dependence, unspecified, uncomplicated; Z88.2 Allergy status to sulfonamides; Z88.8 Allergy status to other drugs, medicaments and biological substances; Z90.49 Acquired absence of other specified parts of digestive tract; Z95.1 Presence of aortocoronary bypass graft; Z95.5 Presence of coronary angioplasty implant and graft; W01.0XXA Fall on same level from slipping, tripping and stumbling without subsequent striking against object, initial encounter
CPT/HCPCS: 36415; 80048; 83605; 85025; 86140; 99284

== ENCOUNTER 2023-11-23 13:05 | Emergency (ER) | payer MEDICARE, OTHER ==
[2023-11-23 15:11] LABS: Basophils % (A) 0 %; Eosinophils # (A) 0.2 k/uL (0-0.7); Eosinophils % (A) 2 %; Lymphocytes # (A) 1.9 k/uL (1.0-4.8); Lymphocytes % (A) 17 %; MCHC 34.1 g/dL (31.0-37.0); Mean Platelet Volume 9.5; Monocytes # (A) 0.6 k/uL (0-1.0); Monocytes % (A) 5 %; Neutrophils % (A) 73 %; Platelet Count 177 k/uL (150-450); RBC 5.18 m/uL (4.30-5.90); RDW 13.1 % (11.5-15.5)
[2023-11-23 15:23] LABS: ALT 13 U/L (4-49); African American GFR (CKD) >90 (>60 ml/min/1.73 sqM); Albumin 4.2 g/dL (3.5-5.0); Anion Gap 9 mmol/L; Blood Urea Nitrogen 26 mg/dL (9-20); Calcium 8.9 mg/dL (8.4-10.2); Carbon Dioxide 29 mmol/L (22-30); Chloride 90 mmol/L (98-107); Glucose 427 mg/dL (74-99); Lipase 267 U/L (23-300); Non-African American GFR(CKD) >90 (>60 ml/min/1.73 sqM); Sodium 128 mmol/L (137-145); Total Bilirubin 1.2 mg/dL (0.2-1.3); Total Protein 6.7 g/dL (6.3-8.2)
[2023-11-23 15:28] LABS: AST 23 U/L (17-59); Alkaline Phosphatase 72 U/L (38-126); Potassium 4.3 mmol/L (3.5-5.1)
[2023-11-23] MEDS: diphenhydrAMINE 50 MG/ML 1 ML VIAL IVP STA (15:57)
[2023-11-23] MEDS: SODIUM CHLORIDE 0.9% 1,000 ML IV STA (15:57)
[2023-11-23] MEDS: METOCLOPRAMIDE 5 MG/ML 2 ML VIAL IVP STA (16:00)
[2023-11-23] MEDS: MORPHINE SULFATE 4 MG/ML SYRINGE IV STA (16:04)
[2023-11-23] MEDS: INSULIN REGULAR 100 UNIT/ML VIAL (IM/SQ) SQ ONE ×3 (17:26→21:37)
[2023-11-23] MEDS: SODIUM CHLORIDE 0.9% 1,000 ML IV SCH (17:26)
[2023-11-23 17:29] LABS: Appearance,Urine Clear (Clear); Bilirubin,Urine Negative (Negative); Blood,Urine Negative (Negative); Color,Urine Colorless; Glucose,Urine (UA) 4+ (Negative); Ketones,Urine 1+ (Negative); Leukocyte Esterase,Urine Negative (Negative); Nitrite,Urine Negative (Negative); PH, Urine 5.5 (5.0-8.0); Protein,Urine Negative (Negative); Specific Gravity,Urine 1.022 (1.001-1.035); Urobilinogen,Urine <2.0 mg/dL (<2.0)
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
[2023-11-23 18:15] LABS: Glucose,Whole Blood 415 mg/dL (70-110)
[2023-11-23 18:36] VITALS: PULSE 80; TEMP 97.6
[2023-11-23 19:40] LABS: Glucose,Whole Blood 435 mg/dL (70-110)
[2023-11-23 19:43] LABS: Glucose,Whole Blood 410 mg/dL (70-110)
[2023-11-23 21:47] VITALS: BP 146/84; RESP 20
== END 2023-11-23 21:47 | disposition home or self-care (01) ==
LOC: EC 13:05
DX: E11.65 Type 2 diabetes mellitus with hyperglycemia (principal); R11.2 Nausea with vomiting, unspecified; F17.200 Nicotine dependence, unspecified, uncomplicated; Z88.1 Allergy status to other antibiotic agents; Z88.2 Allergy status to sulfonamides
CPT/HCPCS: 36415; 80053; 82009; 83605; 83690; 84484; 85025; 81003; 99284; 96374; 96375 ×2; 96361 ×5; J2270; J1200; J2765

== ENCOUNTER → 2023-12-12 | Outpatient (CLI) | payer MEDICARE, OTHER ==
--- NOTE | 2023-12-12 16:22 | US ---
EXAMINATION TYPE: US arterial LE multi level DATE OF EXAM: 12/12/2023 2:36 PM CLINICAL INDICATION: Male, 68 years old with history of I70.209 UNSP ATHSCL [place] ARTERIES OF EXTREM ITIES; *PRIOR EXAM: 01/07/2020 History of: Smoker: Current Smoker Hypertension: Yes Diabetic: Yes Hyperlipidemia: Yes TIA/CVA: Yes, stroke in 2022 Previous Vascular Surgery: Open heart surgery 2019, left great toe amputated in 2022 NE: No Vascular Ulcers: Wound left foot Gangrene: No Doppler Waveforms: Right: Monophasic Left: Monophasic Right Brachial Pressure: 154 Left Brachial Pressure: 164 Ankle-Brachial Indices: Right: 0.49 Left: 0.38 (Vessel hardening > 1.4; Normal 0.9 - 1.4, Moderate 0.7 - 0.9, Severe 0.5-0.7) Toe Brachial Indices: Right: 0.24 Left: Left great toe amputated. Inaudible left DPA. Unable to accurately evaluate left low thigh pressure due to movement. IMPRESSION: Ankle-brachial indices suggestive of severe bilateral peripheral vascular disease.
== END | disposition home or self-care (01) ==
LOC: RADUSWWP 13:34
PROVIDERS: ATTEND Family Medicine
DX: I70.209 Unspecified atherosclerosis of native arteries of extremities, unspecified extremity (principal)
CPT/HCPCS: 93923